=== PATIENT | female | born 1960 | race Caucasian/White ===

== ENCOUNTER 2017-12-28 10:53 | Inpatient (IN) | payer BC, SELFPAY ==
[2017-12-28] VITALS (19 sets, daily range): BP systolic 116–161; BP diastolic 68–96; PULSE 59–72; RESP 16–20; TEMP 36.5–37.3; O2SAT 97–100
--- NOTE | 2017-12-28 11:58 | DI.CT_ITS ---
SYMPTOMS/DIAGNOSIS: LT EYE SWELLING, PERIORBITAL EDEMA, PAIN ORBITAL CT: There is no evidence of fracture or bony destruction. There is minimal mucosal thickening of the anterior right maxillary sinus. There is otf bullosa of the right middle turbinate. The nasal cavity is clear. There is mild preseptal soft tissue swelling on the left. There is no discrete fluid collection or abscess. The extraocular muscles, globes and intraorbital fat appear intact. No abnormality is seen in the visualized portions of the brain. The mastoid air cells appear clear. The [place] vasculature appears grossly intact. IMPRESSION: Mild soft tissue swelling around the left orbit.
--- NOTE | 2017-12-28 12:01 | W.ED.GENAD ---
Discharge Plan Disposition Condition: Good Discharge Details Chief Complaint: Cellulitis Clinical Impression: Periorbital cellulitis of left eye Primary Care Provider: Keith Demarco ED Provider: Duarte Davies Home Meds and New Rx's Prescriptions: No Action multivitamin 1 EACH tablet 1 ea PO DAILY RF: 0 loratadine-pseudoephedrine [Claritin-D 12 Hour] 1 EACH tablet extended release 12 hr 1 tab-cap PO Q12H PRN RF: 0 ibuprofen 200 MG tablet 600 mg PO Q6H PRN RF: 0 Medical Decision Making Medical Records 57-year-old female referred from [facility] with day 2 of left eye injection and periorbital swelling, followed by pain with movement of the eye today. She was seen in the primary care physician's office yesterday and started on prednisolone drops and is worsened since that time. In the optometry office patient had normal visual acuity, normal Goldmann tonometry, and underwent dilated visual exam with unremarkable anterior chamber. There was note that there was no afferent pupillary defect present prior to dilation IV placed, labs of blood cultures obtained, patient given broad-spectrum antibiotics and referred for CT imaging of the head and face. Labs are reassuring. CT reveals soft tissue swelling around the left orbit but otherwise unremarkable. Given the patient's findings, I do feel she needs to be admitted for parenteral antibiotics. Case discussed with Dr Hope and patient to be admitted for parenteral abx and further management. Lab Data Lab results reviewed: Yes I reviewed the patient's lab results. HPI - General Adult General Date/Time Provider Initiated Documentation: 12/28/17 11:26. Limitations to Documentation: no limitations. Information obtained by: patient and family. History of Present Illness 57 year old F presents to the emergency department with the chief complaint of L eye pain, described as moderate, Quality is described as aching, and is localized to the eyes and left. Patient reports no radiation. Patient started experiencing this day(s) and it has been constant. No relieving factors improve symptom(s), Movement worsens symptoms . HPI Narrative: Left eye discomfort: 57-year-old female referred from local [employer]. The patient states she has day to the gradual onset of left eye pain and swelling. She also noticed left eye injection and pain with movement of the eyes both as light sensitivity. States that she had the initiation of erythema in her upper eyelid yesterday that progressed through the night. Somewhat improved with warm compresses and ibuprofen. Was seen at the PCP office yesterday afternoon and prescribed prednisolone. Worse today. Notes from [facility] note unaided visual acuities 20/30 bilaterally. There was diplopia present on leftward gaze and pain with eye movement. Anterior chamber free of cells or flare. Patient underwent dilated exam prior to transfer to the ED Related Data Home Medications Medication Instructions Recorded Confirmed ibuprofen 600 mg PO Q6H PRN tab-cap 08/10/14 09/25/14 loratadine-pseudoephedrine 1 tab-cap PO Q12H PRN tab-cap 08/10/14 09/25/14 [Claritin-D 12 Hour] multivitamin 1 ea PO DAILY 08/10/14 09/25/14 Allergies Allergy/AdvReac Type Severity Reaction Status Date / Time No Known Allergies Allergy Unverified 09/25/14 06:32 General Stated Complaint: Cellulitis CHRIS: 2 Review of Systems Review of Systems 6 systems reviewed and otherwise neg PFSH Social History Smoking/Tobacco Use Status: Never Exam Const General: cooperative and healthy appearing Orientation: alert Limitations: altered mental status [facility] Head: normocephalic and atraumatic Ears: external ears normal Face and sinus: other (Left periorbital erythema and swelling.) Eyes Other: Left pupil was dilated, status post noted previous exam. Left conjunctiva injected. Visual acuity as previous he documented at 20/30 bilaterally. Pupils are equal and reactive to light. There is diplopia on leftward gaze. Pain on eye movement present. Neck Neck: normal visual inspection, full ROM and no lymphadenopathy Chest Chest: normal inspection of the chest Resp Effort & Inspection: normal respiratory effort Auscultation: clear to auscultation bilaterally Cardio Rate: regular rate Rhythm: regular rhythm Neuro General: alert, awake and oriented x3 Cranial Nerves: other (Leftward gaze diplopia, pain with eye movement, clear nerves II through XII otherwise intact) Cognition: normal cognition Speech: speech normal Extrem General: normal to inspection, full ROM and normal capillary refill Psych Appearance: grossly normal and well kempt Mental Status: mental status grossly normal Speech and Movement: speech and movement normal Mood: congruent mood Affect: normal affect Course Vital Signs Temperature 36.7 C 12/28/17 11:50 Pulse 67 09/07/18 11:50 Respiratory Rate 16 12/28/17 11:50 Blood Pressure 143/84 H 12/28/17 11:50 Temperature 36.7 C 12/28/17 11:50 Pulse 67 12/28/17 11:50 Respiratory Rate 16 12/28/17 11:50 Blood Pressure 143/84 H 12/28/17 11:50
--- NOTE | 2017-12-28 12:10 | ED.GENADUL_ITS ---
Discharge Plan Disposition Condition: Good Discharge Details Chief Complaint: Cellulitis Clinical Impression: Periorbital cellulitis of left eye Primary Care Provider: Keith Demarco ED Provider: Duarte Davies Home Meds and New Rx's Prescriptions: No Action multivitamin 1 EACH tablet 1 ea PO DAILY RF: 0 loratadine-pseudoephedrine [Claritin-D 12 Hour] 1 EACH tablet extended release 12 hr 1 tab-cap PO Q12H PRN RF: 0 ibuprofen 200 MG tablet 600 mg PO Q6H PRN RF: 0 Medical Decision Making Medical Records 57-year-old female referred from [facility] with day 2 of left eye injection and periorbital swelling, followed by pain with movement of the eye today. She was seen in the primary care physician's office yesterday and started on prednisolone drops and is worsened since that time. In the optometry office patient had normal visual acuity, normal Goldmann tonometry, and underwent dilated visual exam with unremarkable anterior chamber. There was note that there was no afferent pupillary defect present prior to dilation IV placed, labs of blood cultures obtained, patient given broad-spectrum antibiotics and referred for CT imaging of the head and face. Labs are reassuring. CT reveals soft tissue swelling around the left orbit but otherwise unremarkable. Given the patient's findings, I do feel she needs to be admitted for parenteral antibiotics. Case discussed with Dr Hope and patient to be admitted for parenteral abx and further management. Lab Data Lab results reviewed: Yes I reviewed the patient's lab results. HPI - General Adult General Date/Time Provider Initiated Documentation: 12/28/17 11:26 . Limitations to Documentation: no limitations . Information obtained by: patient and family . History of Present Illness 57 year old F presents to the emergency department with the chief complaint of L eye pain, described as moderate, Quality is described as aching, and is localized to the eyes and left. Patient reports no radiation. Patient started experiencing this day(s) and it has been constant. No relieving factors improve symptom(s), Movement worsens symptoms . 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 The patient states she has day to the gradual onset of left eye pain and swelling. She also noticed left eye injection and pain with movement of the eyes both as light sensitivity. States that she had the initiation of erythema in her upper eyelid yesterday that progressed through the night. Somewhat improved with warm compresses and ibuprofen. Was seen at the PCP office yesterday afternoon and prescribed prednisolone. Worse today. Notes from [facility] note unaided visual acuities 20/30 bilaterally. There was diplopia present on leftward gaze and pain with eye movement. Anterior chamber free of cells or flare. Patient underwent dilated exam prior to transfer to the ED Related Data Home Medications Medication Instructions Recorded Confirmed ibuprofen 600 mg PO Q6H PRN tab-cap 08/10/14 09/25/14 loratadine-pseudoephedrine 1 tab-cap PO Q12H PRN tab-cap 08/10/14 09/25/14 [Claritin-D 12 Hour] multivitamin 1 ea PO DAILY 08/10/14 09/25/14 Allergies Allergy/AdvReac Type Severity Reaction Status Date / Time No Known Allergies Allergy Unverified 09/25/14 06:32 General Stated Complaint: Cellulitis CHRIS: 2 Review of Systems Review of Systems 6 systems reviewed and otherwise neg PFSH Social History Smoking/Tobacco Use Status: Never Exam Const General: cooperative and healthy appearing Orientation: alert Limitations: altered mental status [facility] Head: normocephalic and atraumatic Ears: external ears normal Face and sinus: other (Left periorbital erythema and swelling.) Eyes Other: Left pupil was dilated, status post noted previous exam. Left conjunctiva injected. Visual acuity as previous he documented at 20/30 bilaterally. Pupils are equal and reactive to light. There is diplopia on leftward gaze. Pain on eye movement present. Neck Neck: normal visual inspection, full ROM and no lymphadenopathy Chest Chest: normal inspection of the chest Resp Effort & Inspection: normal respiratory effort Auscultation: clear to auscultation bilaterally Cardio Rate: regular rate Rhythm: regular rhythm Neuro General: alert, awake and oriented x3 Cranial Nerves: other (Leftward gaze diplopia, pain with eye movement, clear nerves II through XII otherwise intact) Cognition: normal cognition Speech: speech normal Extrem General: normal to inspection, full ROM and normal capillary refill Psych Appearance: grossly normal and well kempt Mental Status: mental status grossly normal Speech and Movement: speech and movement normal Mood: congruent mood Affect: normal affect Course Vital Signs Temperature 36.7 C 12/28/17 11:50 Pulse 67 09/07/18 11:50 Respiratory Rate 16 12/28/17 11:50 Blood Pressure 143/84 H 12/28/17 11:50 Temperature 36.7 C 12/28/17 11:50 Pulse 67 12/28/17 11:50 Respiratory Rate 16 12/28/17 11:50 Blood Pressure 143/84 H 12/28/17 11:50
[2017-12-28] MEDS: Normal Saline 1,000 ML 200 ML IV (12:15)
[2017-12-28 12:39] LABS: Abs Immature Grans 0.02 k/cumm (0.0-0.09); Absolute Basophil Count 0.05 k/cumm (0.0-0.2); Absolute Eosinophil Count 0.61 k/cumm (0.0-0.7); Absolute Lymphocyte Count 2.84 k/cumm (1.2-3.4); Absolute Monocyte Count 0.56 k/cumm (0.11-0.7); Absolute Neutrophil Count 5.78 k/cumm (1.2-6.7); Basophils % 0.5; Eosinophils % 6.2; HCT 39.6 % (36.0-46.0); HGB 13.4 g/dL (12.0-15.5); Immature Grans % 0.2; Lymphocytes % 28.8; Mean Corp. HGB Concentration 33.8 g/dL (32.0-36.0); Mean Corpuscular Volume 82.7 fL (80-95); Mean Platelet Volume 8.9 fL (8.0-11.0); Monocytes % 5.7; Neutrophils % 58.6; Platelet Count 310 x1000/uL (130-400); RBC 4.79 m/cumm (4.00-5.20); RBC Distribution Width 13.7 % (11.7-14.6); White Blood Cell Count 9.86 k/cumm (4.4-10.8)
[2017-12-28 12:51] LABS: C-Reactive Protein 1.51 mg/dL (0.0-0.3)
[2017-12-28 12:57] LABS: ALT 24 U/L (12-78); AST 19 U/L (15-37); Alkaline Phosphatase 107 U/L (46-116); Anion Gap 5.9 mmol/L (3-11); BUN 15 mg/dL (7-18); Bilirubin, Total 0.8 mg/dL (0.2-1.0); CO2 30.1 mmol/L (21.0-32.0); CREATININE 0.72 mg/dL (0.55-1.02); Calcium 9.2 mg/dL (8.5-10.1); Chloride 101 mmol/L (98-107); Glucose 82 mg/dL (70-100); Magnesium 2.2 mg/dL (1.8-2.4); Potassium 3.6 mmol/L (3.5-5.1); Sodium 137 mmol/L (136-145); Total Protein 8.6 g/dL (6.4-8.2)
[2017-12-28] MEDS: Omnipaque 350 MG/ML 100 ML BTL IV (13:17)
[2017-12-28] MEDS: PIPERACILLIN/TAZO 3.375 GM in Normal Saline 50 ML IVPB (13:25)
[2017-12-28] MEDS: VANCOMYCIN 1,000 MG in Normal Saline 250 ML 166.6666 MG IVPB (14:05)
[2017-12-28] MEDS: Enoxaparin 40 MG/0.4 ML SYR SC (15:57)
[2017-12-28] MEDS: Normal Saline Flush 10 ML SYR IVP (15:58)
[2017-12-28] MEDS: Acetaminophen 325 MG TAB PO ×2 (15:59→21:46)
--- NOTE | 2017-12-28 16:18 | HPE_ITS ---
Date of service: 12/28/17 Time of Service: 16:16 Assessment and Plan (1) Periorbital cellulitis of left eye: Current visit: Yes Status: Acute Appears to be periorbital cellulitis with concern for progression to orbital cellulitis without aggressive treatment. She had an orbital CT which revealed mild soft tissue swelling around the left orbit. She has been evaluated by her perianesthesia manager. Her vision is intact. Plan to give IV vancomycin and Zosyn for now. Transition to PO Bactrim and Augmentin when she has significant improvement in her left periorbital cellulitis. (2) Seasonal allergies: Current visit: Yes Status: Acute Stable. Continue PRN Claritin. History of Present Illness Chief Complaint: Left eye pain and swelling Narrative: Cassi is a very pleasant 57 year old female with a history of seasonal allergies who presented to the ED today after seeing her perianesthesia manager with reports of left eye swelling, injection, photophobia and pain with lateral movement of the eye. Her vision remained intact. She reports waking up yesterday morning with a swollen left eye. She was in her normal state of health the night prior. She reports having a recent virus, where she was fatigued, however, she denies any recent rhinosinusitis, orbital trauma, ophthalmic surgery, or dental infections. She denies having fevers at home, she has been experiencing headaches and nausea, her appetite has been normal. Work up in the ED included labs, which were remarkable for an elevated CRP at 1.51, she had no leukocytosis. She had an Oribital CT which revealed mild soft tissue swelling around the left orbit. She was empirically started on Vancomycin and Zosyn in the ED, which will be continued. She is admitted to the Med/Surg floor for further observation and management. Review of Systems Constitutional Denies chills, Denies fever(s), Reports headache(s) and Denies poor appetite Eyes Patient Reports as per HPI, reports (clear drainage from left eye.), Denies loss of vision, Reports eye pain (especially with lateral eye movement.) and Reports photophobia ENT Denies dental pain, Reports headache(s), Denies nasal congestion, Denies nasal discharge, Denies sinus pain, Denies sinus pressure and Denies sore throat Cardiovascular Denies chest pain, Denies edema, Denies palpitations and Denies dyspnea Respiratory Denies chest congestion, Denies cough, Denies dyspnea and Denies wheezing Gastrointestinal Denies abdominal pain, Denies change in bowel habits and Reports nausea (when ambulating related eye discomfort and disequilibrium ) Musculoskeletal Comments: Left foot pain related to recent trauma to her left foot, improving. Integumentary/Breasts Comments: Cellulitis surrounding left eye, denies any other rash or lesion. Neurologic Reports headache(s) and Denies loss of vision Endocrine Denies palpitations Allergic/Immunologic Denies wheezing PFSH Social History Smoking/Tobacco Use Status: Never Meds Home Medications Medication Instructions Recorded Confirmed Type ibuprofen 600 mg PO Q6H PRN tab-cap 08/10/14 12/28/17 History loratadine-pseudoephedrine 1 tab-cap PO Q12H PRN tab-cap 08/10/14 12/28/17 History [Claritin-D 12 Hour] multivitamin 1 ea PO DAILY 08/10/14 12/28/17 History Allergies Allergy/AdvReac Type Severity Reaction Status Date / Time No Known Allergies Allergy Unverified 09/25/14 06:32 Exam Const General: cooperative, healthy appearing and no acute distress Orientation: alert and oriented x3 HENMT Mouth: moist mucous membranes Teeth and gingiva: dentition normal Eyes Periorbital: periorbital findings abnormal (Edema surrounding left eye, left eye lid closed due to swelling.) Conjunctivae: conjunctival abnormality (injected and inflammed.) Pupils: PERRL EOM: EOM intact bilaterally (EOM intact, however, she has significant pain on lateral movement of the left eye especially left gaze.) Direct ophthalmoscopy: photophobia Neck Neck: normal visual inspection, full ROM, no lymphadenopathy and supple Resp Effort & Inspection: normal respiratory effort (Respirations even and unlabored. ) and no cough Auscultation: no wheezes Cardio Rate: regular rate Heart Sounds: S1 normal, S2 normal and no murmurs GI Palpation: soft and nontender Auscultation: normal bowel sounds Extrem Right upper extremity: no edema (no edema to BLE's. Mild discomfort to left foot related to recent trauma, slight discoloration to dorsal aspect of left foot.) Results Labs : 12/28/17 12:20 12/28/17 12:20 Abnormal lab results 12/28/17 12/28/17 Range/Units 12:20 12:20 C-Reactive Protein 1.51 H (0.0-0.3) mg/dL Total Protein 8.6 H (6.4-8.2) g/dL Diabetes panel 12/28/17 Range/Units 12:20 Sodium 137 (136-145) mmol/L Potassium 3.6 (3.5-5.1) mmol/L Chloride 101 (98-107) mmol/L Carbon Dioxide 30.1 (21.0-32.0) mmol/L BUN 15 (7-18) mg/dL Creatinine 0.72 (0.55-1.02) mg/dL Glucose 82 (70-100) mg/dL Calcium 9.2 (8.5-10.1) mg/dL AST 19 (15-37) U/L ALT 24 (12-78) U/L Alkaline Phosphatase 107 (46-116) U/L Total Protein 8.6 H (6.4-8.2) g/dL Albumin 4.0 (3.4-5.0) g/dL Calcium panel 12/28/17 Range/Units 12:20 Calcium 9.2 (8.5-10.1) mg/dL Albumin 4.0 (3.4-5.0) g/dL Pituitary panel 12/28/17 Range/Units 12:20 Sodium 137 (136-145) mmol/L Potassium 3.6 (3.5-5.1) mmol/L Chloride 101 (98-107) mmol/L Carbon Dioxide 30.1 (21.0-32.0) mmol/L BUN 15 (7-18) mg/dL Creatinine 0.72 (0.55-1.02) mg/dL Glucose 82 (70-100) mg/dL Calcium 9.2 (8.5-10.1) mg/dL Adrenal panel 12/28/17 Range/Units 12:20 Sodium 137 (136-145) mmol/L Potassium 3.6 (3.5-5.1) mmol/L Chloride 101 (98-107) mmol/L Carbon Dioxide 30.1 (21.0-32.0) mmol/L BUN 15 (7-18) mg/dL Creatinine 0.72 (0.55-1.02) mg/dL Glucose 82 (70-100) mg/dL Calcium 9.2 (8.5-10.1) mg/dL Total Bilirubin 0.8 (0.2-1.0) mg/dL AST 19 (15-37) U/L ALT 24 (12-78) U/L Alkaline Phosphatase 107 (46-116) U/L Total Protein 8.6 H (6.4-8.2) g/dL Albumin 4.0 (3.4-5.0) g/dL Laboratory Tests 12/28/17 12/28/17 12/28/17 12:20 12:20 12:20 WBC 9.86 RBC 4.79 Hgb 13.4 Hct 39.6 MCV 82.7 MCH 28.0 MCHC 33.8 RDW 13.7 Plt Count 310 MPV 8.9 Immature Gran % 0.2 Neutrophils % 58.6 Lymphocytes % 28.8 Monocytes % 5.7 Eosinophils % 6.2 Basophils % 0.5 Absolute Neutrophils 5.78 Absolute Lymphocytes 2.84 Absolute Monocytes 0.56 Absolute Eosinophils 0.61 Absolute Basophils 0.05 Sodium 137 Potassium 3.6 Chloride 101 Carbon Dioxide 30.1 Anion Gap 5.9 BUN 15 Creatinine 0.72 Estimated GFR/1.73 m2 >= 60.00 Glucose 82 Calcium 9.2 Magnesium 2.2 Total Bilirubin 0.8 AST 19 ALT 24 Alkaline Phosphatase 107 C-Reactive Protein 1.51 H Total Protein 8.6 H Albumin 4.0
[2017-12-28] MEDS: VANCOMYCIN 1,000 MG in Normal Saline 250 ML 166.667 MG IVPB (23:52)
[2017-12-29 04:03] VITALS: BP 116/68; PULSE 63; RESP 15; TEMP 37.1; O2SAT 96
[2017-12-29 07:14] LABS: HCT 40.9 % (36.0-46.0); HGB 13.7 g/dL (12.0-15.5); Mean Corp. HGB Concentration 33.5 g/dL (32.0-36.0); Mean Corpuscular Hemoglobin 27.4 pg (27.0-33.0); Mean Corpuscular Volume 81.8 fL (80-95); Mean Platelet Volume 8.7 fL (8.0-11.0); Platelet Count 277 x1000/uL (130-400); RBC Distribution Width 13.9 % (11.7-14.6); White Blood Cell Count 7.89 k/cumm (4.4-10.8)
[2017-12-29 07:20] LABS: Anion Gap 9.5 mmol/L (3-11); BUN 12 mg/dL (7-18); CO2 27.5 mmol/L (21.0-32.0); CREATININE 0.85 mg/dL (0.55-1.02); Calcium 8.7 mg/dL (8.5-10.1); Chloride 102 mmol/L (98-107); Glucose 100 mg/dL (70-100); Potassium 3.7 mmol/L (3.5-5.1); Sodium 139 mmol/L (136-145)
[2017-12-29] MEDS: Acetaminophen 325 MG TAB PO ×2 (07:25→15:02)
--- NOTE | 2017-12-29 07:41 | PDOC.CMIN ---
- If Service Date Differs Date of service: 12/29/17 Time of Service: 07:41 Care Management Initial Assess REASON FOR HOSPITALIZATION:: Left Periorbital Cellulitis PAST MEDICAL HISTORY/PAST SURGICAL HISTORY:: Seasonal allergies PREVIOUS FUNCTIONAL STATUS/SOCIAL/FAMILY SUPPORTS:: Cassi lives in her own home in [place], [place] her spouse is Peter she has four children that live at home. Children's ages range from 10 thru 16. 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 She is independent with ADL's and transporation, and has no equipment need at home. CURRENT FUNCTIONAL STATUS:: Cassi is alert and engaged during CM assessment. CM reviewed the plan for IV antibiotics with patient and expecations while inpatient. Cassi is hopeful she could be home before Sunday however understands that importance of treating the cellulitis. She states she has a supportive family. ADVANCE DIRECTIVES:: None on file at [facility]. Unable to complete today Has patient been provided with information about the portal?: Yes Did the patient sign up for the portal?: No CODE STATUS:: Full Code INSURANCE COVERAGE / FINANCIAL ISSUES:: BCBS CURRENT HOME/COMMUNITY SERVICES/EQUIPMENT:: None at this time. PRIMARY CARE PHYSICIAN:: POTENTIAL DISCHARGE NEEDS:: Follow up appointment with opthamology and primary care provider. PATIENT/FAMILY EDUCATION NEEDS:: Discharge education, medicaiton, limitations and follow up plan of care including ask me three education and self management discussion. ANTICIPATED BARRIERS TO DISCHARGE:: None identified TRANSPORTATION:: Via private car with spouse PLAN:: Cassi is currently receiving IV antibiotics and anticipate no change in status today. Cassi will be discharged to home when medically ready per provider. Anticipate no addtional services upon discharge. CM to continue to provide support to Pt, family and care team ongoing discharge planning.
[2017-12-29 07:45] VITALS: BP 129/86; PULSE 72; RESP 18; TEMP 36.7; O2SAT 97
--- NOTE | 2017-12-29 07:52 | INITIAL_ITS ---
- If Service Date Differs Date of service: 12/29/17 Time of Service: 07:41 Care Management Initial Assess REASON FOR HOSPITALIZATION:: Left Periorbital Cellulitis PAST MEDICAL HISTORY/PAST SURGICAL HISTORY:: Seasonal allergies PREVIOUS FUNCTIONAL STATUS/SOCIAL/FAMILY SUPPORTS:: Cassi lives in her own home in [place], [place] her spouse is Peter she has four children that live at home. Children's ages range from 10 thru 16. 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 She is independent with ADL's and transporation, and has no equipment need at home. CURRENT FUNCTIONAL STATUS:: Cassi is alert and engaged during CM assessment. CM reviewed the plan for IV antibiotics with patient and expecations while inpatient. Cassi is hopeful she could be home before Sunday however understands that importance of treating the cellulitis. She states she has a supportive family. ADVANCE DIRECTIVES:: None on file at [facility]. Unable to complete today Has patient been provided with information about the portal?: Yes Did the patient sign up for the portal?: No CODE STATUS:: Full Code INSURANCE COVERAGE / FINANCIAL ISSUES:: BCBS CURRENT HOME/COMMUNITY SERVICES/EQUIPMENT:: None at this time. PRIMARY CARE PHYSICIAN:: POTENTIAL DISCHARGE NEEDS:: Follow up appointment with opthamology and primary care provider. PATIENT/FAMILY EDUCATION NEEDS:: Discharge education, medicaiton, limitations and follow up plan of care including ask me three education and self management discussion. ANTICIPATED BARRIERS TO DISCHARGE:: None identified TRANSPORTATION:: Via private car with spouse PLAN:: Cassi is currently receiving IV antibiotics and anticipate no change in status today. Cassi will be discharged to home when medically ready per provider. Anticipate no addtional services upon discharge. CM to continue to provide support to Pt, family and care team ongoing discharge planning.
[2017-12-29] MEDS: traMADol 50 MG TAB PO (09:41)
[2017-12-29] MEDS: VANCOMYCIN 1,000 MG in Normal Saline 250 ML 166.67 MG IVPB ×2 (09:43→20:54)
[2017-12-29] MEDS: Normal Saline Flush 10 ML SYR IVP ×2 (09:45→15:03)
--- NOTE | 2017-12-29 11:08 | PHARADMIT ---
Addendum entered by Penny Zimmer 12/31/17 11:38: Pharmacy Note Subjective swelling has decreased and pt. can now open eye per morning report Objective VS-okay Assessment blood cultures-no growth at 48 hours vanco and zosyn changed to bactrim DS and augmentin Plan possible discharge tomorrow if continues to improve Original Note: Admission Pharmacy Clinical Review [id number] Cellulitis Code Status Full Code Current Weight Wgt- 77.1 kg Renally Cleared and Narrow Therapeutic Index Meds CrCl~58.4 mL/min Meds-OK QTc Value / Action Taken Program na BP Control, Fever BP- 129/86 Tmax- 37.3C Electrolytes reviewed Na- 139 K+3.7 Mag-2.2 DVT Prophylaxis Lovenox 40mg Opiate Usage / Scheduled Bowel Regimen Ordered Yes Yes Plt/SCr for Heparin / Enoxaparin Plts-277 SCr- 0.85 INR for Warfarin na H/H stable, WBC/Bands H&H- 13.7/40.9 WBC- 7.89 Antibiotic appropriateness Zosyn, Vancomycin Cultures and Sensitivities Blood-Pending Surgical ABX d/c within 24 hr na DM control / Insulin Dosing BG- 100 Heart Failure (Check EF%) (NAKIA's, B-Block, Diuretics) none IV to PO Switch No Home Meds Reviewed Yes Home Meds Not Ordered Ibuprofen, Claritin-D, M-Vites Comments
[2017-12-29 12:13] VITALS: BP 128/84; PULSE 76; RESP 16; TEMP 36.7; O2SAT 97
--- NOTE | 2017-12-29 13:12 | PGE_ITS ---
Date of service: 12/29/17 Time of Service: 13:02 Assessment and Plan (1) Periorbital cellulitis of left eye: Current visit: Yes Status: Acute Left sided Preseptal Cellulitis. CT with mild preseptal soft tissue swelling on the left without discrete fluid collection or abscess. The extraocular muscles, globes and intraorbital fat also appeared intact. There was no abnormality seen in the visualized portions of the brain. Patient with what appears to be a arnaldo-orbital process, but with symptoms that are concerning for progression to orbital cellulitis. Continue IV vancomycin and Zosyn Day #2 for now. Plan on transition to PO Bactrim and Augmentin when she has significant improvement in her symptoms. (2) Seasonal allergies: Current visit: Yes Status: Acute Stable. Continue PRN Claritin. Subjective Interval history since last seen: Very pleasant 57 year old female without a significant medical history, admitted from [facility] emergency department on 2017 with a diagnosis of left sided arnaldo-orbital cellulitis. Mrs. Lomax presented to the ED after seeing her manager medical affairs with reports of left eye swelling, injection, photophobia and pain with lateral movement of the eye. Her vision remained intact. She reported waking up in the morning prior to her admission with a swollen left eye. She was in her normal state of health the night prior. She reports having a recent illness with symptoms of fatigued, however, she denies any recent rhinosinusitis, orbital trauma, ophthalmic surgery, or dental infections. She denied any fevers at home. Work up in the ED included labs, which were remarkable for an elevated CRP at 1.51, but without leukocytosis. She had an Oribital CT which revealed mild soft tissue swelling around the left orbit, but no signs of orbital cellulitis. She was empirically started on Vancomycin and Zosyn in the ED, and referred for admission. This morning the patient reports no specific improvement in her symptoms, and the swelling remains unchanged. However, there has been no progression in symptoms either. No overnight events reported. She remains afebrile. Exam Const General: cooperative and no acute distress Orientation: alert and oriented x3 Limitations: altered mental status HENMT Head: normocephalic and atraumatic Eyes Periorbital: periorbital findings abnormal (Edema surrounding left eye, left eye lid closed due to swelling.) Conjunctivae: conjunctival abnormality (injected and inflammed.) EOM: EOM intact bilaterally (EOM intact, however, she has significant pain on lateral movement of the left eye especially left gaze.) Direct ophthalmoscopy: photophobia Neck Neck: normal visual inspection and supple Resp Effort & Inspection: normal respiratory effort (Respirations even and unlabored. ) and no cough Auscultation: clear to auscultation bilaterally Cardio Rate: regular rate Heart Sounds: S1 normal, S2 normal and no murmurs GI Palpation: soft and nontender Auscultation: normal bowel sounds Neuro General: alert, awake and oriented x3 Objective Objective Clinical Data: Vital Signs Temp 36.7 C 12/29/17 12:13 Pulse 76 12/29/17 12:13 Resp 16 12/29/17 12:13 BP 128/84 12/29/17 12:13 Pulse Ox 97 12/29/17 12:13 Intake & Output 12/28/17 12/29/17 12/29/17 23:59 11:59 23:59 Intake Total 1540 / 1540 610 / 610 250 / 250 Output Total 400 / 400 Balance 1140 / 1140 610 / 610 250 / 250 Weight 77.111 kg Intake: IV 1300 / 1300 370 / 370 250 / 250 Oral 240 / 240 240 / 240 Output: Urine 400 / 400 Other: Urine Color Yellow Urine Appearance Clear Urine Odor Normal Voiding Methods Toilet Laboratory Results WBC 7.89 k/cumm (4.4-10.8) 12/29/17 06:55 RBC 5.00 m/cumm (4.00-5.20) 12/29/17 06:55 Hgb 13.7 g/dL (12.0-15.5) 12/29/17 06:55 Hct 40.9 % (36.0-46.0) 12/29/17 06:55 MCV 81.8 fL (80-95) 12/29/17 06:55 MCH 27.4 pg (27.0-33.0) 12/29/17 06:55 MCHC 33.5 g/dL (32.0-36.0) 12/29/17 06:55 RDW 13.9 % (11.7-14.6) 12/29/17 06:55 Plt Count 277 x1000/uL (130-400) 12/29/17 06:55 MPV 8.7 fL (8.0-11.0) 12/29/17 06:55 Immature Gran % 0.2 12/28/17 12:20 Neutrophils % 58.6 12/28/17 12:20 Lymphocytes % 28.8 12/28/17 12:20 Monocytes % 5.7 12/28/17 12:20 Eosinophils % 6.2 12/28/17 12:20 Basophils % 0.5 12/28/17 12:20 Absolute Neutrophils 5.78 k/cumm (1.2-6.7) 12/28/17 12:20 Absolute Lymphocytes 2.84 k/cumm (1.2-3.4) 12/28/17 12:20 Absolute Monocytes 0.56 k/cumm (0.11-0.7) 12/28/17 12:20 Absolute Eosinophils 0.61 k/cumm (0.0-0.7) 12/28/17 12:20 Absolute Basophils 0.05 k/cumm (0.0-0.2) 12/28/17 12:20 Sodium 139 mmol/L (136-145) 12/29/17 06:55 Potassium 3.7 mmol/L (3.5-5.1) 12/29/17 06:55 Chloride 102 mmol/L (98-107) 12/29/17 06:55 Carbon Dioxide 27.5 mmol/L (21.0-32.0) 12/29/17 06:55 Anion Gap 9.5 mmol/L (3-11) 12/29/17 06:55 BUN 12 mg/dL (7-18) 12/29/17 06:55 Creatinine 0.85 mg/dL (0.55-1.02) 12/29/17 06:55 Estimated GFR/1.73 m2 >= 60.00 (mL/min/1.73m2) 12/29/17 06:55 Glucose 100 mg/dL (70-100) 12/29/17 06:55 Calcium 8.7 mg/dL (8.5-10.1) 12/29/17 06:55 Magnesium 2.2 mg/dL (1.8-2.4) 12/28/17 12:20 Total Bilirubin 0.8 mg/dL (0.2-1.0) 09/07/18 12:20 AST 19 U/L (15-37) 12/28/17 12:20 ALT 24 U/L (12-78) 12/28/17 12:20 Alkaline Phosphatase 107 U/L (46-116) 12/28/17 12:20 C-Reactive Protein 1.51 mg/dL (0.0-0.3) H 12/28/17 12:20 Total Protein 8.6 g/dL (6.4-8.2) H 12/28/17 12:20 Albumin 4.0 g/dL (3.4-5.0) 12/28/17 12:20
[2017-12-29] MEDS: Ketorolac 30 MG/ML VIAL IVP (15:03)
[2017-12-29 15:57] VITALS: BP 125/82; PULSE 85; RESP 17; TEMP 36.7; O2SAT 100
[2017-12-29] MEDS: Enoxaparin 40 MG/0.4 ML SYR SC (16:58)
[2017-12-29 18:53] LABS: Vancomycin, Trough 14.3 ug/mL (10.0-20.0)
[2017-12-29 20:19] VITALS: BP 112/71; PULSE 63; RESP 16; TEMP 37.2
[2017-12-29 23:54] VITALS: BP 131/79; PULSE 60; RESP 18; TEMP 36.6; O2SAT 97
[2017-12-30 03:45] VITALS: BP 158/89; PULSE 72; RESP 16; TEMP 36.5; O2SAT 99
[2017-12-30] MEDS: Acetaminophen 325 MG TAB PO ×2 (03:54→10:38)
[2017-12-30] MEDS: VANCOMYCIN 1,000 MG in Normal Saline 250 ML 166.67 MG IVPB ×2 (06:26→15:23)
[2017-12-30 07:06] LABS: HCT 38.4 % (36.0-46.0); HGB 12.9 g/dL (12.0-15.5); Mean Corp. HGB Concentration 33.6 g/dL (32.0-36.0); Mean Corpuscular Hemoglobin 27.8 pg (27.0-33.0); Mean Corpuscular Volume 82.8 fL (80-95); Mean Platelet Volume 8.7 fL (8.0-11.0); Platelet Count 272 x1000/uL (130-400); RBC 4.64 m/cumm (4.00-5.20); RBC Distribution Width 14.1 % (11.7-14.6)
[2017-12-30 07:22] LABS: Anion Gap 8.8 mmol/L (3-11); BUN 10 mg/dL (7-18); CO2 28.2 mmol/L (21.0-32.0); CREATININE 0.88 mg/dL (0.55-1.02); Calcium 8.5 mg/dL (8.5-10.1); Chloride 103 mmol/L (98-107); Glucose 89 mg/dL (70-100); Potassium 3.7 mmol/L (3.5-5.1); Sodium 140 mmol/L (136-145)
[2017-12-30 07:35] VITALS: BP 135/87; PULSE 67; RESP 18; TEMP 36.2; O2SAT 96
[2017-12-30] MEDS: Docusate Sodium 100 MG CAP PO (08:04)
[2017-12-30 11:35] VITALS: BP 137/84; PULSE 64; RESP 18; TEMP 36.4; O2SAT 98
[2017-12-30] MEDS: Normal Saline Flush 10 ML SYR IVP ×3 (12:08→20:44)
[2017-12-30 13:40] VITALS: BP 130/78; PULSE 70; RESP 18
[2017-12-30] MEDS: traMADol 50 MG TAB PO (13:53)
--- NOTE | 2017-12-30 14:30 | W.PM.PROGNOT ---
Assessment and Plan (1) Periorbital cellulitis of left eye: Current visit: Yes Status: Acute Left sided Preseptal Cellulitis. CT with mild preseptal soft tissue swelling on the left without discrete fluid collection or abscess. The extraocular muscles, globes and intraorbital fat also appeared intact. There was no abnormality seen in the visualized portions of the brain. Patient with what appears to be a arnaldo-orbital process, but with symptoms that are concerning for progression to orbital cellulitis. Continue IV vancomycin and Zosyn Day #3 , and if vastly improved consider transition to PO Bactrim and Augmentin tomorrow. As per discussion with Dr. Sabrina Cuellar, there is potential for inflammatory etiology for patient's symptoms as well - will start oral steroids, and topical Antibiotic/steroid mixture. (2) Seasonal allergies: Current visit: Yes Status: Acute Stable. Continue PRN Claritin. Subjective Interval history since last seen: Very pleasant 57 year old female without a significant medical history, admitted from [facility] emergency department on 12/28/2017 with a diagnosis of left sided arnaldo-orbital cellulitis. Mrs. 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 Her vision remained intact. She reported waking up in the morning prior to her admission with a swollen left eye. She was in her normal state of health the night prior. She reports having a recent illness with symptoms of fatigued, however, she denies any recent rhinosinusitis, orbital trauma, ophthalmic surgery, or dental infections. She denied any fevers at home. Work up in the ED included labs, which were remarkable for an elevated CRP at 1.51, but without leukocytosis. She had an Oribital CT which revealed mild soft tissue swelling around the left orbit, but no signs of orbital cellulitis. She was empirically started on Vancomycin and Zosyn in the ED, and referred for admission. This morning the patient reports some improvement in her symptoms, including decreased swelling, ability to open her left eye, and vastly improved to resolved pain. However, her diplopia remains. No overnight events reported. She remains afebrile. Exam Const General: cooperative and no acute distress Orientation: alert and oriented x3 Limitations: altered mental status HENMT Head: normocephalic and atraumatic Eyes Periorbital: periorbital findings abnormal (Edema surrounding left eye, left eye lid closed due to swelling.) Conjunctivae: conjunctival abnormality (injected and inflammed.) EOM: EOM intact bilaterally (EOM intact, however, she has significant pain on lateral movement of the left eye especially left gaze.) Direct ophthalmoscopy: photophobia Neck Neck: normal visual inspection and supple Resp Effort & Inspection: normal respiratory effort (Respirations even and unlabored.) and no cough Auscultation: clear to auscultation bilaterally Cardio Rate: regular rate Heart Sounds: S1 normal, S2 normal and no murmurs GI Palpation: soft and nontender Auscultation: normal bowel sounds Neuro General: alert, awake and oriented x3 Objective Objective Clinical Data: Vital Signs Temp 36.4 C L 12/30/17 11:35 Pulse 70 12/30/17 13:40 Resp 18 12/30/17 13:40 BP 130/78 12/30/17 13:40 Pulse Ox 98 12/30/17 11:35 Intake & Output 12/29/17 12/30/17 12/30/17 23:59 11:59 23:59 Intake Total 1290 / 1290 990 / 990 300 / 300 Output Total 820 / 820 Balance 1290 / 1290 170 / 170 300 / 300 Intake: IV 630 / 630 300 / 300 50 / 50 Oral 660 / 660 690 / 690 250 / 250 Output: Urine 820 / 820 Other: Urine Color Yellow Straw Urine Appearance Clear Urine Odor None Comment Patient states she is voiding independently in toilet with no issues independant Voiding Methods Toilet Laboratory Results WBC 7.30 k/cumm (4.4-10.8) 12/30/17 06:50 RBC 4.64 m/cumm (4.00-5.20) 12/30/17 06:50 Hgb 12.9 g/dL (12.0-15.5) 12/30/17 06:50 Hct 38.4 % (36.0-46.0) 12/30/17 06:50 MCV 82.8 fL (80-95) 12/30/17 06:50 MCH 27.8 pg (27.0-33.0) 12/30/17 06:50 MCHC 33.6 g/dL (32.0-36.0) 12/30/17 06:50 RDW 14.1 % (11.7-14.6) 12/30/17 06:50 Plt Count 272 x1000/uL (130-400) 12/30/17 06:50 MPV 8.7 fL (8.0-11.0) 12/30/17 06:50 Immature Gran % 0.2 12/28/17 12:20 Neutrophils % 58.6 12/28/17 12:20 Lymphocytes % 28.8 12/28/17 12:20 Monocytes % 5.7 12/28/17 12:20 Eosinophils % 6.2 12/28/17 12:20 Basophils % 0.5 12/28/17 12:20 Absolute Neutrophils 5.78 k/cumm (1.2-6.7) 12/28/17 12:20 Absolute Lymphocytes 2.84 k/cumm (1.2-3.4) 12/28/17 12:20 Absolute Monocytes 0.56 k/cumm (0.11-0.7) 12/28/17 12:20 Absolute Eosinophils 0.61 k/cumm (0.0-0.7) 12/28/17 12:20 Absolute Basophils 0.05 k/cumm (0.0-0.2) 12/28/17 12:20 Sodium 140 mmol/L (136-145) 12/30/17 06:50 Potassium 3.7 mmol/L (3.5-5.1) 12/30/17 06:50 Chloride 103 mmol/L (98-107) 12/30/17 06:50 Carbon Dioxide 28.2 mmol/L (21.0-32.0) 12/30/17 06:50 Anion Gap 8.8 mmol/L (3-11) 12/30/17 06:50 BUN 10 mg/dL (7-18) 12/30/17 06:50 Creatinine 0.88 mg/dL (0.55-1.02) 12/30/17 06:50 Estimated GFR/1.73 m2 >= 60.00 (mL/min/1.73m2) 12/30/17 06:50 Glucose 89 mg/dL (70-100) 12/30/17 06:50 Calcium 8.5 mg/dL (8.5-10.1) 09/09/18 06:50 Magnesium 2.2 mg/dL (1.8-2.4) 12/28/17 12:20 Total Bilirubin 0.8 mg/dL (0.2-1.0) 12/28/17 12:20 AST 19 U/L (15-37) 12/28/17 12:20 ALT 24 U/L (12-78) 12/28/17 12:20 Alkaline Phosphatase 107 U/L (46-116) 12/28/17 12:20 C-Reactive Protein 1.51 mg/dL (0.0-0.3) H 12/28/17 12:20 Total Protein 8.6 g/dL (6.4-8.2) H 12/28/17 12:20 Albumin 4.0 g/dL (3.4-5.0) 12/28/17 12:20 Vancomycin Trough 14.3 ug/mL (10.0-20.0) 12/29/17 18:35
--- NOTE | 2017-12-30 14:33 | PGE_ITS ---
Assessment and Plan (1) Periorbital cellulitis of left eye: Current visit: Yes Status: Acute Left sided Preseptal Cellulitis. CT with mild preseptal soft tissue swelling on the left without discrete fluid collection or abscess. The extraocular muscles, globes and intraorbital fat also appeared intact. There was no abnormality seen in the visualized portions of the brain. Patient with what appears to be a arnaldo-orbital process, but with symptoms that are concerning for progression to orbital cellulitis. Continue IV vancomycin and Zosyn Day #3 , and if vastly improved consider transition to PO Bactrim and Augmentin tomorrow. As per discussion with Dr. Sabrina Cuellar, there is potential for inflammatory etiology for patient's symptoms as well - will start oral steroids, and topical Antibiotic/steroid mixture. (2) Seasonal allergies: Current visit: Yes Status: Acute Stable. Continue PRN Claritin. Subjective Interval history since last seen: Very pleasant 57 year old female without a significant medical history, admitted from [facility] emergency department on 2017 with a diagnosis of left sided arnaldo-orbital cellulitis. Mrs. 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 Her vision remained intact. She reported waking up in the morning prior to her admission with a swollen left eye. She was in her normal state of health the night prior. She reports having a recent illness with symptoms of fatigued, however, she denies any recent rhinosinusitis, orbital trauma, ophthalmic surgery, or dental infections. She denied any fevers at home. Work up in the ED included labs, which were remarkable for an elevated CRP at 1.51, but without leukocytosis. She had an Oribital CT which revealed mild soft tissue swelling around the left orbit, but no signs of orbital cellulitis. She was empirically started on Vancomycin and Zosyn in the ED, and referred for admission. This morning the patient reports some improvement in her symptoms, including decreased swelling, ability to open her left eye, and vastly improved to resolved pain. However, her diplopia remains. No overnight events reported. She remains afebrile. Exam Const General: cooperative and no acute distress Orientation: alert and oriented x3 Limitations: altered mental status HENMT Head: normocephalic and atraumatic Eyes Periorbital: periorbital findings abnormal (Edema surrounding left eye, left eye lid closed due to swelling.) Conjunctivae: conjunctival abnormality (injected and inflammed.) EOM: EOM intact bilaterally (EOM intact, however, she has significant pain on lateral movement of the left eye especially left gaze.) Direct ophthalmoscopy: photophobia Neck Neck: normal visual inspection and supple Resp Effort & Inspection: normal respiratory effort (Respirations even and unlabored. ) and no cough Auscultation: clear to auscultation bilaterally Cardio Rate: regular rate Heart Sounds: S1 normal, S2 normal and no murmurs GI Palpation: soft and nontender Auscultation: normal bowel sounds Neuro General: alert, awake and oriented x3 Objective Objective Clinical Data: Vital Signs Temp 36.4 C L 12/30/17 11:35 Pulse 70 12/30/17 13:40 Resp 18 12/30/17 13:40 BP 130/78 12/30/17 13:40 Pulse Ox 98 12/30/17 11:35 Intake & Output 12/29/17 12/30/17 12/30/17 23:59 11:59 23:59 Intake Total 1290 / 1290 990 / 990 300 / 300 Output Total 820 / 820 Balance 1290 / 1290 170 / 170 300 / 300 Intake: IV 630 / 630 300 / 300 50 / 50 Oral 660 / 660 690 / 690 250 / 250 Output: Urine 820 / 820 Other: Urine Color Yellow Straw Urine Appearance Clear Urine Odor None Comment Patient states she is voiding independently in toilet with no issues independant Voiding Methods Toilet Laboratory Results WBC 7.30 k/cumm (4.4-10.8) 12/30/17 06:50 RBC 4.64 m/cumm (4.00-5.20) 12/30/17 06:50 Hgb 12.9 g/dL (12.0-15.5) 12/30/17 06:50 Hct 38.4 % (36.0-46.0) 12/30/17 06:50 MCV 82.8 fL (80-95) 12/30/17 06:50 MCH 27.8 pg (27.0-33.0) 12/30/17 06:50 MCHC 33.6 g/dL (32.0-36.0) 12/30/17 06:50 RDW 14.1 % (11.7-14.6) 12/30/17 06:50 Plt Count 272 x1000/uL (130-400) 12/30/17 06:50 MPV 8.7 fL (8.0-11.0) 12/30/17 06:50 Immature Gran % 0.2 12/28/17 12:20 Neutrophils % 58.6 12/28/17 12:20 Lymphocytes % 28.8 12/28/17 12:20 Monocytes % 5.7 12/28/17 12:20 Eosinophils % 6.2 12/28/17 12:20 Basophils % 0.5 12/28/17 12:20 Absolute Neutrophils 5.78 k/cumm (1.2-6.7) 12/28/17 12:20 Absolute Lymphocytes 2.84 k/cumm (1.2-3.4) 12/28/17 12:20 Absolute Monocytes 0.56 k/cumm (0.11-0.7) 12/28/17 12:20 Absolute Eosinophils 0.61 k/cumm (0.0-0.7) 12/28/17 12:20 Absolute Basophils 0.05 k/cumm (0.0-0.2) 12/28/17 12:20 Sodium 140 mmol/L (136-145) 12/30/17 06:50 Potassium 3.7 mmol/L (3.5-5.1) 12/30/17 06:50 Chloride 103 mmol/L (98-107) 12/30/17 06:50 Carbon Dioxide 28.2 mmol/L (21.0-32.0) 12/30/17 06:50 Anion Gap 8.8 mmol/L (3-11) 12/30/17 06:50 BUN 10 mg/dL (7-18) 12/30/17 06:50 Creatinine 0.88 mg/dL (0.55-1.02) 12/30/17 06:50 Estimated GFR/1.73 m2 >= 60.00 (mL/min/1.73m2) 12/30/17 06:50 Glucose 89 mg/dL (70-100) 12/30/17 06:50 Calcium 8.5 mg/dL (8.5-10.1) 09/09/18 06:50 Magnesium 2.2 mg/dL (1.8-2.4) 12/28/17 12:20 Total Bilirubin 0.8 mg/dL (0.2-1.0) 12/28/17 12:20 AST 19 U/L (15-37) 12/28/17 12:20 ALT 24 U/L (12-78) 12/28/17 12:20 Alkaline Phosphatase 107 U/L (46-116) 12/28/17 12:20 C-Reactive Protein 1.51 mg/dL (0.0-0.3) H 12/28/17 12:20 Total Protein 8.6 g/dL (6.4-8.2) H 12/28/17 12:20 Albumin 4.0 g/dL (3.4-5.0) 12/28/17 12:20 Vancomycin Trough 14.3 ug/mL (10.0-20.0) 12/29/17 18:35
[2017-12-30] MEDS: Polyethylene Glycol 3350 17 GM PACKET PO (15:24)
[2017-12-30] MEDS: Enoxaparin 40 MG/0.4 ML SYR SC (15:24)
--- NOTE | 2017-12-30 15:24 | PDOC.CMPRO ---
- If Service Date Differs Date of service: 12/30/17 Time of Service: 15:25 Care Management Progress Note S/O: Cassi is ambulating in the halls she states she is board She is now able to open her left eye. The eye continues to be swollen and she is receiving ongoing IV antibiotics. Cassi may have to see outpatient Ophthalmology then return to [facility] for continued IV antibiotics. She is having some double vision per her report. She is being started on oral steroids and eye drops for continued treatment of periorbital cellulites. A:Cassi is a 57 year old female admitted with Periorbital cellulites of left eye P:Cassi is currently receiving IV antibiotics and anticipate no change in status today. Cassi will be discharged to home when medically ready per provider. Anticipate no additional services upon discharge. CM to continue to provide support to Pt, family and care team ongoing discharge planning.
--- NOTE | 2017-12-30 15:30 | CMPROGNOTE_ITS ---
- If Service Date Differs Date of service: 12/30/17 Time of Service: 15:25 Care Management Progress Note S/O: Cassi is ambulating in the halls she states she is board She is now able to open her left eye. The eye continues to be swollen and she is receiving ongoing IV antibiotics. Cassi may have to see outpatient Ophthalmology then return to [facility] for continued IV antibiotics. She is having some double vision per her report. She is being started on oral steroids and eye drops for continued treatment of periorbital cellulites. A:Cassi is a 57 year old female admitted with Periorbital cellulites of left eye P:Cassi is currently receiving IV antibiotics and anticipate no change in status today. Cassi will be discharged to home when medically ready per provider. Anticipate no additional services upon discharge. CM to continue to provide support to Pt, family and care team ongoing discharge planning.
[2017-12-30 15:52] VITALS: BP 146/80; PULSE 60; RESP 18; TEMP 36.7; O2SAT 98
[2017-12-30 20:00] VITALS: BP 129/83; PULSE 73; RESP 17; TEMP 36.9; O2SAT 96
[2017-12-30] MEDS: predniSONE 20 MG TAB 40 MG PO (20:44)
[2017-12-31 01:14] VITALS: BP 127/82; PULSE 77; RESP 17; TEMP 36.7; O2SAT 96
[2017-12-31] MEDS: VANCOMYCIN 1,000 MG in Normal Saline 250 ML 166.67 MG IVPB (02:01)
[2017-12-31] MEDS: Normal Saline Flush 10 ML SYR IVP (02:02)
[2017-12-31 04:00] VITALS: BP 128/73; PULSE 71; RESP 16; TEMP 36.8; O2SAT 96
[2017-12-31 07:15] VITALS: BP 124/78; PULSE 86; RESP 20; TEMP 36.2; O2SAT 95
[2017-12-31 07:15] LABS: HCT 39.8 % (36.0-46.0); HGB 13.4 g/dL (12.0-15.5); Mean Corp. HGB Concentration 33.7 g/dL (32.0-36.0); Mean Corpuscular Hemoglobin 27.6 pg (27.0-33.0); Mean Corpuscular Volume 81.9 fL (80-95); Mean Platelet Volume 8.8 fL (8.0-11.0); Platelet Count 298 x1000/uL (130-400); RBC 4.86 m/cumm (4.00-5.20); RBC Distribution Width 13.7 % (11.7-14.6)
[2017-12-31 07:32] LABS: Anion Gap 9.5 mmol/L (3-11); BUN 13 mg/dL (7-18); CO2 27.5 mmol/L (21.0-32.0); CREATININE 0.85 mg/dL (0.55-1.02); Calcium 9.3 mg/dL (8.5-10.1); Chloride 103 mmol/L (98-107); Glucose 129 mg/dL (70-100); Potassium 4.1 mmol/L (3.5-5.1); Sodium 140 mmol/L (136-145)
[2017-12-31] MEDS: predniSONE 20 MG TAB 40 MG PO ×2 (07:59→18:57)
[2017-12-31 08:00] VITALS: O2SAT 97
[2017-12-31] MEDS: Amoxicillin 875/Clav. 125 TAB PO ×2 (08:49→19:29)
[2017-12-31] MEDS: Sulfameth/Trimeth DS TAB 1 TAB PO ×2 (08:49→19:29)
[2017-12-31] MEDS: Polyethylene Glycol 3350 17 GM PACKET PO (09:46)
--- NOTE | 2017-12-31 13:43 | PGE_ITS ---
Assessment and Plan (1) Periorbital cellulitis of left eye: Current visit: Yes Status: Acute Left sided Preseptal Cellulitis. CT with mild preseptal soft tissue swelling on the left without discrete fluid collection or abscess. The extraocular muscles, globes and intraorbital fat also appeared intact. There was no abnormality seen in the visualized portions of the brain. Patient with what appears to be a arnaldo-orbital process, but with symptoms that are concerning for progression to orbital cellulitis. However, symptoms are now vastly improved. Will discontinue IV vancomycin and Zosyn after 3 days of therapy, and change to PO Bactrim and Augmentin. Monitor for additional day and plan on discharge if symptoms continue to improve. As per discussion with Dr. Sabrina Cuellar, there is potential for inflammatory etiology for patient's symptoms as well - started on oral steroids and topical Antibiotic/steroid combination yesterday. (2) Seasonal allergies: Current visit: Yes Status: Acute Stable. Continue PRN Claritin. Subjective Interval history since last seen: Very pleasant 57 year old female without a significant medical history, admitted from [facility] emergency department on 2017 with a diagnosis of left sided arnaldo-orbital cellulitis. Mrs. 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 Her vision remained intact. She reported waking up in the morning prior to her admission with a swollen left eye. She was in her normal state of health the night prior. She reports having a recent illness with symptoms of fatigued, however, she denies any recent rhinosinusitis, orbital trauma, ophthalmic surgery, or dental infections. She denied any fevers at home. Work up in the ED included labs, which were remarkable for an elevated CRP at 1.51, but without leukocytosis. She had an Oribital CT which revealed mild soft tissue swelling around the left orbit, but no signs of orbital cellulitis. She was empirically started on Vancomycin and Zosyn in the ED, and referred for admission. This morning the patient reports continued improvement in her symptoms, including vastly decreased swelling, ability to open her left eye, and vastly improved to resolved pain. No overnight events reported. She remains afebrile. Exam Const General: cooperative and no acute distress Orientation: alert and oriented x3 HENMT Head: normocephalic and atraumatic Eyes Periorbital: periorbital findings abnormal (Edema surrounding left eye vastly improved. left eye lid now open. ) Conjunctivae: conjunctival abnormality (injected and inflammed previously, also vastly improved.) EOM: EOM intact bilaterally (EOM intact, however, she has significant pain on lateral movement of the left eye especially left gaze.) Neck Neck: normal visual inspection and supple Neuro General: alert, awake and oriented x3 Objective Objective Clinical Data: Abnormal lab results 12/31/17 Range/Units 06:54 Glucose 129 H (70-100) mg/dL Vital Signs Temp 36.2 C L 12/31/17 07:15 Pulse 86 12/31/17 07:15 Resp 20 12/31/17 07:15 BP 124/78 12/31/17 07:15 Pulse Ox 97 12/31/17 08:00 Intake & Output 12/30/17 12/31/17 12/31/17 23:59 11:59 23:59 Intake Total 900 / 900 950 / 950 Balance 900 / 900 950 / 950 Intake: IV 410 / 410 300 / 300 Oral 490 / 490 650 / 650 Other: Urine Appearance Clear Clear Comment pt gets up AD SANDIE to void. independant Stool Size Small Stool Characteristics Formed Brown Voiding Methods Toilet Laboratory Results WBC 7.90 k/cumm (4.4-10.8) 12/31/17 06:54 RBC 4.86 m/cumm (4.00-5.20) 12/31/17 06:54 Hgb 13.4 g/dL (12.0-15.5) 12/31/17 06:54 Hct 39.8 % (36.0-46.0) 12/31/17 06:54 MCV 81.9 fL (80-95) 12/31/17 06:54 MCH 27.6 pg (27.0-33.0) 12/31/17 06:54 MCHC 33.7 g/dL (32.0-36.0) 12/31/17 06:54 RDW 13.7 % (11.7-14.6) 12/31/17 06:54 Plt Count 298 x1000/uL (130-400) 12/31/17 06:54 MPV 8.8 fL (8.0-11.0) 12/31/17 06:54 Immature Gran % 0.2 12/28/17 12:20 Neutrophils % 58.6 12/28/17 12:20 Lymphocytes % 28.8 12/28/17 12:20 Monocytes % 5.7 12/28/17 12:20 Eosinophils % 6.2 12/28/17 12:20 Basophils % 0.5 12/28/17 12:20 Absolute Neutrophils 5.78 k/cumm (1.2-6.7) 12/28/17 12:20 Absolute Lymphocytes 2.84 k/cumm (1.2-3.4) 12/28/17 12:20 Absolute Monocytes 0.56 k/cumm (0.11-0.7) 12/28/17 12:20 Absolute Eosinophils 0.61 k/cumm (0.0-0.7) 12/28/17 12:20 Absolute Basophils 0.05 k/cumm (0.0-0.2) 12/28/17 12:20 Sodium 140 mmol/L (136-145) 12/31/17 06:54 Potassium 4.1 mmol/L (3.5-5.1) 12/31/17 06:54 Chloride 103 mmol/L (98-107) 12/31/17 06:54 Carbon Dioxide 27.5 mmol/L (21.0-32.0) 12/31/17 06:54 Anion Gap 9.5 mmol/L (3-11) 12/31/17 06:54 BUN 13 mg/dL (7-18) 12/31/17 06:54 Creatinine 0.85 mg/dL (0.55-1.02) 12/31/17 06:54 Estimated GFR/1.73 m2 >= 60.00 (mL/min/1.73m2) 12/31/17 06:54 Glucose 129 mg/dL (70-100) H 12/31/17 06:54 Calcium 9.3 mg/dL (8.5-10.1) 12/31/17 06:54 Magnesium 2.2 mg/dL (1.8-2.4) 12/28/17 12:20 Total Bilirubin 0.8 mg/dL (0.2-1.0) 12/28/17 12:20 AST 19 U/L (15-37) 12/28/17 12:20 ALT 24 U/L (12-78) 12/28/17 12:20 Alkaline Phosphatase 107 U/L (46-116) 12/28/17 12:20 C-Reactive Protein 1.51 mg/dL (0.0-0.3) H 12/28/17 12:20 Total Protein 8.6 g/dL (6.4-8.2) H 12/28/17 12:20 Albumin 4.0 g/dL (3.4-5.0) 12/28/17 12:20 Vancomycin Trough 14.3 ug/mL (10.0-20.0) 12/29/17 18:35
--- NOTE | 2017-12-31 14:40 | PDOC.CMPRO ---
- If Service Date Differs Date of service: 12/31/17 Time of Service: 14:40 Care Management Progress Note S/O: Cassi is sitting up in bed when this automotive service writer visits this morning. She is pleasant and open to discussion. Per morning report Cassi will transition from IV to PO antibiotics today and if she does well on PO antibiotics may be able to DC home tomorrow. A:Cassi is a 57 year old female admitted with Periorbital cellulites of left eye P:Cassi will be discharged to home when medically ready per provider. Anticipate no additional services upon discharge. CM to continue to provide support to Pt, family and care team ongoing discharge planning.
--- NOTE | 2017-12-31 14:45 | CMPROGNOTE_ITS ---
- If Service Date Differs Date of service: 12/31/17 Time of Service: 14:40 Care Management Progress Note S/O: Cassi is sitting up in bed when this fiction writer visits this morning. She is pleasant and open to discussion. Per morning report Cassi will transition from IV to PO antibiotics today and if she does well on PO antibiotics may be able to DC home tomorrow. A:Cassi is a 57 year old female admitted with Periorbital cellulites of left eye P:Cassi will be discharged to home when medically ready per provider. Anticipate no additional services upon discharge. CM to continue to provide support to Pt, family and care team ongoing discharge planning.
--- NOTE | 2017-12-31 15:22 | CHAPLAIN ---
Cassi was pleasant and easily engaged in a conversation. She seems to be comfortable being here. She hopes to be going home soon. She lives with her and four kids, 10, 14, 15, and 16 years old.
[2017-12-31 16:10] VITALS: BP 116/72; PULSE 86; RESP 18; TEMP 36.8; O2SAT 97
[2017-12-31 19:35] VITALS: BP 121/81; PULSE 53; RESP 16; TEMP 36.7; O2SAT 98
[2018-01-01 00:30] VITALS: BP 115/73; PULSE 66; RESP 16; TEMP 36.5; O2SAT 95
[2018-01-01 04:00] VITALS: BP 118/67; PULSE 64; RESP 15; TEMP 36.6; O2SAT 97
[2018-01-01 07:30] VITALS: O2SAT 96
[2018-01-01 07:41] LABS: HCT 41.6 % (36.0-46.0); HGB 13.9 g/dL (12.0-15.5); Mean Corp. HGB Concentration 33.4 g/dL (32.0-36.0); Mean Corpuscular Hemoglobin 27.6 pg (27.0-33.0); Mean Corpuscular Volume 82.5 fL (80-95); Mean Platelet Volume 9.1 fL (8.0-11.0); Platelet Count 363 x1000/uL (130-400); RBC 5.04 m/cumm (4.00-5.20); RBC Distribution Width 14.1 % (11.7-14.6)
[2018-01-01 07:42] LABS: Anion Gap 12.2 mmol/L (3-11); BUN 15 mg/dL (7-18); CO2 23.8 mmol/L (21.0-32.0); CREATININE 0.77 mg/dL (0.55-1.02); Calcium 9.4 mg/dL (8.5-10.1); Chloride 103 mmol/L (98-107); Glucose 116 mg/dL (70-100); Potassium 3.9 mmol/L (3.5-5.1); Sodium 139 mmol/L (136-145)
[2018-01-01 07:43] VITALS: BP 128/80; PULSE 78; RESP 18; TEMP 36.1; O2SAT 97
[2018-01-01] MEDS: Amoxicillin 875/Clav. 125 TAB PO (08:22)
[2018-01-01] MEDS: Sulfameth/Trimeth DS TAB 1 TAB PO (08:23)
[2018-01-01] MEDS: predniSONE 20 MG TAB 40 MG PO (08:23)
[2018-01-01 11:05] VITALS: BP 123/74; PULSE 69; RESP 19; TEMP 36.9; O2SAT 98
--- NOTE | 2018-01-01 11:22 | W.PM.DS.N ---
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 Her vision remained intact. She reports waking up yesterday morning with a swollen left eye. She was in her normal state of health the night prior. She reports having a recent virus, where she was fatigued, however, she denied any recent rhinosinusitis, orbital trauma, ophthalmic surgery, or dental infections. She denied having fevers at home, she had been experiencing headaches and nausea, her appetite has been normal. Work up in the ED included labs, which were remarkable for an elevated CRP at 1.51, she had no leukocytosis. She had an Oribital CT which revealed mild soft tissue swelling around the left orbit. She was empirically started on Vancomycin and Zosyn in the ED. She was admitted to the Med/Surg floor for further observation and management. Her symptoms improved. By the day of discharge, she has residual pain in the affected eye only when she looks straight up and to the far right. Her EOMs are intact, PERRLA, she denies diplopia and photophobia. The swelling to her left eye has decreased drastically. There is mild conjunctival injection. She received steroids both systemically and via eye drops. She transitioned from IV vancomycin and Zosyn to oral bactrim and augmentin. She will be discharged home on oral antibiotics and with optical steroids. She will follow up with Dr. Cuellar in the office the day following her discharge from the hospital. She will follow up with her PCP. We will have labs drawn in 3 days time. Home Meds and New Rx's Prescriptions: New sulfamethoxazole-trimethoprim 800-160 mg Tablet 1 tab PO BID Qty: 6 RF: 0 amoxicillin-pot clavulanate 875-125 mg Tablet 1 tab PO BID Qty: 6 RF: 0 tobramycin-dexamethasone 0.3-0.1 % Drops,Suspension 1 ml OU Q4H 2 Days Qty: 3 RF: 0 Continue multivitamin 1 EACH tablet 1 ea PO DAILY RF: 0 loratadine-pseudoephedrine [Claritin-D 12 Hour] 1 EACH tablet extended release 12 hr 1 tab-cap PO Q12H PRN RF: 0 ibuprofen 200 MG tablet 600 mg PO Q6H PRN RF: 0 Discharge Instructions Instructions: Periorbital Cellulitis in Adults (DC) Additional Instructions: You will need to have labs drawn on Sunday to recheck your white blood cell count, the results will go to your PCP. Follow up with Dr. Cuellar and your PCP as scheduled. Take care! Stand Alone Forms: Nursing Discharge Form Referrals: [facility] [Outside] - 01/02/18 12:10 pm Keith Demarco MD [Primary Care Provider] - 01/14/18 11:25 am Activity:: Activity as Tolerated Equipment/Supplies:: No Equipment Needed Diet:: as tolerated Discharge Orders Discharge Orders: Discharge Order (Routine); Ordered 01/01/18 Ordered By: Fatou Rojas Other Ambulatory Orders: Complete Blood Count No Diff (Routine) Timeframe: 3 Days Location: Determined by Patient Ordered By: Fatou Rojas Discharge Data Discharge Date/Time-TO BE ENTERED AT DEPARTURE: 01/01/18 13:00 DS: Data Vitals/I&O Vitals and I&O: Vital Signs Temp 36.9 C 01/01/18 11:05 Pulse 69 01/01/18 11:05 Resp 19 01/01/18 11:05 BP 123/74 01/01/18 11:05 Pulse Ox 98 01/01/18 11:05 Intake & Output 12/31/17 12/31/17 01/01/18 11:59 23:59 11:59 Intake Total 950 / 950 240 / 240 540 / 540 Balance 950 / 950 240 / 240 540 / 540 Intake: IV 300 / 300 Oral 650 / 650 240 / 240 540 / 540 Other: Urine Appearance Clear Clear Clear Comment independant pt gets Up to void AD SANDIE. independant to toilet Stool Size Moderate Voiding Methods Toilet Labs on day of discharge: Labs from last 24 hours 01/01/18 01/01/18 06:28 06:28 WBC 17.40 H D RBC 5.04 Hgb 13.9 Hct 41.6 MCV 82.5 MCH 27.6 MCHC 33.4 RDW 14.1 Plt Count 363 MPV 9.1 Sodium 139 Potassium 3.9 Chloride 103 Carbon Dioxide 23.8 Anion Gap 12.2 H BUN 15 Creatinine 0.77 Estimated GFR/1.73 m2 >= 60.00 Glucose 116 H Calcium 9.4 Preliminary micro results at discharge 12/28/17 12:45 Blood Culture - Preliminary Blood NO GROWTH 72 HOURS 12/28/17 12:20 Blood Culture - Preliminary Blood NO GROWTH 72 HOURS
--- NOTE | 2018-01-01 12:03 | PDOC.CMDIS ---
- If Service Date Differs Date of service: 01/01/18 Time of Service: 12:03 LACE Index Scoring Tool - Questions: Length of Stay (in days): 4 - 6 Acuity (Admit via E.D.?): Yes E.D. Visits: 1 - Answers: Total Score: 8 Risk of Readmission: Low Risk Care Management Discharge Reason for Hospitalization: Left Periorbital Cellulitis Discharge Plan: Cassi will return home today with no services. She will F/U with PCP and plan of care as prescribed. Cassi's SO will transport when ready. Patient/Family Education Needs: Review DC instructions, any limitations, and discuss Ask Me Three
== END 2018-01-01 13:00 | disposition home or self-care (01) | DRG 603 ==
LOC: ER 14:48 → MS 15:01
PROVIDERS: Nurse Practitioner; Admitting Provider Internal Medicine; Emergency Provider Emergency Medicine; PCP Internal Medicine; Visit Provider Family Medicine
DX: L03.213 Periorbital cellulitis (principal); J30.2 Other seasonal allergic rhinitis
CPT/HCPCS: 36410; 36415; 80048; 80053; 85027; 87040; 96361; 96365; 96367; 99222; 99232; 99239; 99285; J1650; 70481; 80202; 83735; 85025; 86140; 99238; 99284; J1885; J2543; J3490; J7512

== ENCOUNTER 2018-01-04 15:51 | Outpatient (CLI) | payer BC, SELFPAY ==
[2018-01-04 16:14] LABS: HCT 37.8 % (36.0-46.0); Mean Corp. HGB Concentration 34.4 g/dL (32.0-36.0); Mean Corpuscular Hemoglobin 28.1 pg (27.0-33.0); Mean Corpuscular Volume 81.6 fL (80-95); Mean Platelet Volume 8.7 fL (8.0-11.0); Platelet Count 340 x1000/uL (130-400); RBC 4.63 m/cumm (4.00-5.20); RBC Distribution Width 13.8 % (11.7-14.6)
== END 2018-01-04 16:11 ==
PROVIDERS: Visit Provider Nurse Practitioner
DX: L03.213 Periorbital cellulitis (principal)
CPT/HCPCS: 36415; 85027

== ENCOUNTER 2018-01-24 09:11 | Outpatient (REF) | payer BC, SELFPAY ==
[2018-01-24 12:12] LABS: Cholesterol 244 mg/dL (50-200); HDL Cholesterol 56 mg/dL (40-60); LDL CHOLESTEROL 166 mg/dL (<100); Triglyceride 117 mg/dL (30-150)
== END 2018-01-24 09:31 ==
LOC: NCHCN 09:11
PROVIDERS: PCP Internal Medicine; Visit Provider Family Medicine
DX: Z00.00 Encounter for general adult medical examination without abnormal findings (principal); Z13.220 Encounter for screening for lipoid disorders
CPT/HCPCS: 80061; 83721

== ENCOUNTER 2018-01-31 00:33 | Outpatient (CLI) | payer BC, SELFPAY ==
--- NOTE | 2018-01-31 12:55 | DI.MAMMO_ITS ---
SYMPTOMS/DIAGNOSIS: SCREENING, Z12.31 BILATERAL SCREENING MAMMOGRAM: Comparison is made with exams from 2011 through 2016. The breasts are composed of fatty density tissue. There is a small island of residual breast tissue in the superior left breast. No suspicious masses or suspicious microcalcifications are seen. There has been no significant change. IMPRESSION: Category 1A, negative mammogram. Routine screening is recommended. SA ASSESSMENT OF FINDINGS: Negative. Category 1. Patient will receive a letter notifying them of these results. BI-RAD category A. The breasts are almost entirely fatty.
== END 2018-01-31 00:53 ==
PROVIDERS: PCP Internal Medicine; Visit Provider Family Medicine
DX: Z12.31 Encounter for screening mammogram for malignant neoplasm of breast (principal)
CPT/HCPCS: 77063; 77067

== ENCOUNTER 2018-04-10 21:36 | Emergency (ER) | payer MEDICAID, SELFPAY ==
[2018-04-10 21:38] VITALS: BP 129/77; PULSE 79; RESP 20; TEMP 36.6; O2SAT 97
--- NOTE | 2018-04-10 21:43 | DI.RAD_ITS ---
SYMPTOM/DIAGNOSIS: KNEE PAIN RIGHT KNEE: The bony structures are normally mineralized. There is no evidence of a fracture or dislocation, or joint effusion. Very minimal degenerative changes are also apparent.
--- NOTE | 2018-04-10 21:46 | ED.GENADUL_ITS ---
Discharge Plan Disposition Patient Disposition: HOME Discharge Details Chief Complaint: Orthopedic Primary Care Provider: Keith Demarco ED Provider: Segundo Becerra Home Meds and New Rx's Prescriptions: No Action multivitamin 1 EACH tablet 1 ea PO DAILY RF: 0 ibuprofen 200 MG tablet 600 mg PO Q6H PRN RF: 0 Discharge Data Discharge Date/Time-TO BE ENTERED AT DEPARTURE: 04/11/18 00:12 Medical Decision Making Patient presenting the emergency department with chief complaint of knee pain. Patient denies any specific injury or trauma but does state that she had been in [facility] walking around a lot when she noticed worsening knee pain. Pain is got so severe that she cannot bear weight upon affected extremity. Physical exam shows medial laxity and pain with medial ligamentous testing and lateral joint line tenderness. Physical exam is otherwise unremarkable. Given patient being unable to weight-bear radiological imaging was ordered. Pending results patient given ibuprofen for discomfort. Neurological imaging shows no acute fracture dislocation shows some possible arthritic changes otherwise no emergent findings are noted. Patient was encouraged to use ibuprofen as needed for discomfort, patient placed in a hinged knee brace, and due to not being able to bear weight patient placed on crutches. Patient was encouraged to use crutches for the next 2-3 days and rest the extremity and advance activity as tolerated and if not improving contact orthopedist for reassessment. There is concern for medial ligament sprain along with possible meniscal injury. HPI General Mode of arrival: wheelchair . Date/Time Provider Initiated Documentation: 04/10/18 21:38 . Limitations to Documentation: no limitations . Information obtained by: patient and RN notes reviewed . History of Present Illness 57 year old F presents to the emergency department with the chief complaint of right knee pain, described as moderate, with intensity rated at 8. Quality is described as sharp, and is localized to the right and lower extremity. Patient distal. Patient started experiencing this day(s) (3) a nd it has been constant. No relieving factors improve symptom(s), Movement worsens symptoms . Patient notes no other symptoms.. Patient did receive the following treatments prior to arrival, none Related Data Home Medications Medication Instructions Recorded Confirmed ibuprofen 600 mg PO Q6H PRN tab-cap 08/10/14 04/10/18 multivitamin 1 ea PO DAILY 08/10/14 04/10/18 Allergies Allergy/AdvReac Type Severity Reaction Status Date / Time No Known Allergies Allergy Unverified 04/10/18 21:42 General Stated Complaint: Orthopedic CHRIS: 3 Review of Systems Constitutional Denies frequent falls Cardiovascular Denies chest pain, Denies syncope and Denies dyspnea Respiratory Denies dyspnea Musculoskeletal Reports as per HPI, Denies numbness and Reports tingling Neurologic Denies syncope, Denies frequent falls, Denies numbness and Reports tingling PFSH Medical History H/O: hysterectomy (Chronic) Seasonal allergies (Acute) Aneurysm (Acute) FHx: lung cancer (Acute) Surgical History Hx of LASIK (Acute) Family History Other Aneurysm FHx: lung cancer Social History Smoking/Tobacco Use Status: Never Exam Const General: cooperative, healthy appearing and no acute distress Orientation: alert, awake and oriented x3 Resp Effort & Inspection: normal respiratory effort and able to speak in complete sentences Cardio Rate: regular rate Rhythm: regular rhythm Extrem Right lower extremity: knee Details: tenderness Location: of the lateral joint line, of the distal upper leg Details: medially and of the proximal tibia Details: medially, swelling Location: of the infrapatellar area (mild), abnormal ROM Details: pain with active ROM during Details: in flexion; able to extend l ower leg actively and knee ligament exam abnormal Details: valgus stress test normal Details: both pain and laxity noted; anterior drawer test abnormal, posterior drawer test abnormal and no pain with axial loading; no crepitus, lower leg Details: normal to inspection, ankle Details: normal to inspection and foot Details: normal capillary refill and vascular exam Details: dorsalis pedis pulse present and posterior tibial pulse present Course Vital Signs Temperature 36.6 C 04/10/18 21:38 Pulse 79 04/10/18 21:38 Respiratory Rate 20 04/10/18 21:38 Blood Pressure 129/77 04/10/18 21:38 Pulse Oximetry 97 04/10/18 21:38 Temperature 36.6 C 04/10/18 21:38 Temperature Source Temporal Artery Scan 04/10/18 21:38 Pulse 79 04/10/18 21:38 Respiratory Rate 20 04/10/18 21:38 Respiratory Effort Non-Labored 04/10/18 21:38 Blood Pressure 129/77 04/10/18 21:38 Blood Pressure Position Sitting 04/10/18 21:38 Pulse Oximetry 97 04/10/18 21:38 Oxygen Delivery Method Room Air 04/10/18 21:38 Oxygen Flow Rate 0 04/10/18 21:38 Pain Level 8 04/10/18 21:43
[2018-04-10] MEDS: Ibuprofen 600 MG TAB PO (22:19)
--- NOTE | 2018-04-10 22:35 | DI.VRAD_ITS ---
EXAM: XR Right Knee, 3 Views EXAM DATE/TIME: 04/10/2018 9:44 PM CLINICAL HISTORY: 57 years old, female; Injury or trauma; Fall; Initial encounter; Blunt trauma; Knee; Right TECHNIQUE: XR Right knee 3 views. COMPARISON: CR RIGHT KNEE 3 VIEWS 05/05/2013 10:15 AM FINDINGS: Bones/joints: No fracture or dislocation. Minimal early primary osteoarthritis. No lytic or blastic lesions. No joint effusion or loose body. Soft tissues: Soft tissues unremarkable. No foreign body. IMPRESSION: 1. No acute fracture or dislocation. 2. Minimal changes of early primary osteoarthritis. Dictated and Authenticated by: Adama Joya MD. Ordering:KHRIS Raymond MD
[2018-04-11 00:07] VITALS: BP 129/77; PULSE 79; RESP 20; TEMP 36.6; O2SAT 97
== END 2018-04-11 00:12 | disposition home or self-care (01) ==
PROVIDERS: Emergency Provider Nurse Practitioner Family; PCP Internal Medicine
DX: S83.411A Sprain of medial collateral ligament of right knee, initial encounter (principal); X50.9XXA Other and unspecified overexertion or strenuous movements or postures, initial encounter
CPT/HCPCS: 73562; 99283; E0114; L1810

== ENCOUNTER 2018-10-07 09:16 | Outpatient (CLI) | payer MEDICAID, SELFPAY ==
--- NOTE | 2018-10-07 09:06 | DI.RAD_ITS ---
SYMPTOM/DIAGNOSIS: RIGHT KNEE PAIN RIGHT KNEE: A single PA Heredia view was performed. There is moderate narrowing of the lateral femoral tibial joint. There is spurring from the lateral femoral condyle and lateral tibial plateau. Mild spurring is also seen medially, IMPRESSION: Moderate degenerative changes of the lateral femoral tibial joint.
--- NOTE | 2018-10-07 09:06 | DI.RAD_ITS ---
SYMPTOM/DIAGNOSIS: RIGHT KNEE PAIN. STANDING ALIGNMENT: AP views were performed from above the iliac crest through the ankles. The hip joint spaces are well maintained and there is mild acetabular spurring. The left femoral head projects approximately 5 mm superior to the right. There is mild narrowing of the lateral femoral tibial joint of the right knee and some valgus angulation at the right knee. The left knee shows preserved joint spaces. Degenerative changes are seen at the ankles, right greater than left. IMPRESSION: Degenerative changes of the lateral femoral tibial joint of the right knee and mild leg length discrepancy.
== END 2018-10-07 09:36 ==
PROVIDERS: PCP Internal Medicine; Visit Provider Student in an Organized Health Care Education/Training Program
DX: M17.11 Unilateral primary osteoarthritis, right knee (principal); M25.561 Pain in right knee; M21.70 Unequal limb length (acquired), unspecified site
CPT/HCPCS: 73560; 77073

== ENCOUNTER 2018-11-08 09:40 | Outpatient (CLI) | payer MEDICAID, SELFPAY ==
[2018-11-08 11:51] LABS: HCT 40.7 % (36.0-46.0); HGB 13.7 g/dL (12.0-15.5); Mean Corp. HGB Concentration 33.7 g/dL (32.0-36.0); Mean Corpuscular Hemoglobin 27.8 pg (27.0-33.0); Mean Corpuscular Volume 82.6 fL (80-95); Mean Platelet Volume 8.9 fL (8.0-11.0); Platelet Count 340 x1000/uL (130-400); RBC 4.93 m/cumm (4.00-5.20); RBC Distribution Width 13.9 % (11.7-14.6); White Blood Cell Count 8.16 k/cumm (4.4-10.8)
[2018-11-08 12:42] LABS: BUN 18 mg/dL (7-18); CREATININE 0.67 mg/dL (0.55-1.02); Calcium 9.2 mg/dL (8.5-10.1); Chloride 102 mmol/L (98-107); Glucose 78 mg/dL (70-100); Potassium 4.5 mmol/L (3.5-5.1); Sodium 139 mmol/L (136-145)
--- NOTE | 2018-11-08 18:18 | HPE_ITS ---
Date of service: 11/08/18 Assessment and Plan (1) Right knee DJD: Current visit: No Status: Chronic Right total knee replacement Details of surgery were discussed with patient as well as risks and pertinent anatomy. All questions were answered. Qualifiers: Osteoarthritis type: primary Qualified Code(s): M17.11 - Unilateral primary osteoarthritis, right knee History of Present Illness Chief Complaint: Right knee pain Narrative: Cassi is a 58-year-old female who comes in today for a preop history and physical for a right total knee replacement. She has been dealing with right knee pain for many years, but it r eally has gotten significantly worse in the last few months. She works with dogs in a kennel, and is constantly walking on uneven ground and doing chores around her property. With this activity she is getting an increase in her right knee pain. She has tried conservative treatment including a Synvisc injection at her last visit on 10/07/2018, and she feels as though this injection only aggravated her symptoms. She states that within the last couple of weeks, her ability to get around and do her daily activities has become even more difficult. Since she has failed conservative treatment, and imaging suggest that she has pretty severe arthritis of the right knee, Dr. Almanzar does offer a right total knee replacement at this time. Cassi agrees with this plan and is anxious to proceed. Pertinent Surgical Information Patient denies history of hypertension, CVA, MA, angina, asthma, COPD, renal or liver disorders, hepatitis, bleeding disorders, diabetes, immune or thyroid disorders. No complications from anesthesia. Review of Systems Constitutional Denies fever(s) ENT Denies dizziness and Denies sore throat Cardiovascular Denies chest pain, Denies palpitations and Denies dyspnea Respiratory Denies cough and Denies dyspnea Gastrointestinal Denies abdominal pain, Denies melena, Denies hematochezia, Denies diarrhea, Denies nausea and Denies vomiting Genitourinary Denies hematuria and Denies dysuria Neurologic Denies dizziness Endocrine Denies palpitations PFS Medical History Aneurysm (Acute) FHx: lung cancer (Acute) Seasonal allergies (Acute) Surgical History H/O: hysterectomy (Inactive) History of partial hysterectomy (Acute) Hx of LASIK (Inactive) Family History Other Aneurysm FHx: lung cancer Social History Smoking/Tobacco Use Status: Never Drug use: Never Do you feel safe in your relationship?: Yes Meds Home Medications Medication Instructions Recorded Confirmed Type ibuprofen 600 mg PO Q6H PRN tab-cap 08/10/14 11/08/18 History multivitamin 1 ea PO DAILY 08/10/14 11/08/18 History acetaminophen [Tylenol] 2 mg PO DAILY PRN 11/08/18 11/08/18 History loratadine-pseudoephedrine 1 tab PO Q12H PRN 11/08/18 11/08/18 History [Claritin-D 12 Hour] omega 8-cps-hsg-fish oil [Fish Oil] 1 cap PO DAILY 11/08/18 11/08/18 History Allergies Allergy/AdvReac Type Severity Reaction Status Date / Time No Known Allergies Allergy Unverified 11/08/18 10:03 Exam [facility] Head: normocephalic and atraumatic General nose exam: no nasal discharge Throat: uvula midline and no uvular edema Other: soft palate rises symmetrically, no erythema Eyes Conjunctivae: conjunctivae normal Sclera: sclerae normal Pupils: PERRL Resp Effort & Inspection: normal respiratory effort Auscultation: clear to auscultation bilaterally and no wheezes Cardio Rate: regular rate Rhythm: regular rhythm Heart Sounds: S1 normal, S2 normal and no murmurs GI Palpation: soft, no hepatosplenomegaly and nontender Auscultation: normal bowel sounds Results Labs : 11/08/18 11:24 11/08/18 11:24 Laboratory Results - last 24 hr 11/08/18 11/08/18 11:24 11:24 WBC 8.16 RBC 4.93 Hgb 13.7 Hct 40.7 MCV 82.6 MCH 27.8 MCHC 33.7 RDW 13.9 Plt Count 340 MPV 8.9 Sodium 139 Potassium 4.5 Chloride 102 Carbon Dioxide 27.0 Anion Gap 10.0 BUN 18 Creatinine 0.67 Estimated GFR/1.73 m2 >= 60.00 Glucose 78 Calcium 9.2
== END 2018-11-08 10:00 ==
PROVIDERS: PCP Family Medicine; Visit Provider Student in an Organized Health Care Education/Training Program
DX: M25.561 Pain in right knee (principal); M17.11 Unilateral primary osteoarthritis, right knee; Z01.812 Encounter for preprocedural laboratory examination; Z01.818 Encounter for other preprocedural examination
CPT/HCPCS: 36415; 80048; 85027; NC

== ENCOUNTER 2018-11-28 11:29 | Observation (INO) | payer MEDICAID, SELFPAY ==
[2018-11-28] VITALS (14 sets, daily range): BP systolic 87–141; BP diastolic 55–102; PULSE 62–91; RESP 12–18; TEMP 35.4–36.6; O2SAT 91–100
[2018-11-28] MEDS: Lactated Ringers 1,000 ML 80 ML IV ×2 (12:14→16:24)
[2018-11-28] MEDS: Acetaminophen 500 MG TAB 1000 MG PO (12:14)
[2018-11-28] MEDS: oxyCODONE-CR 10 MG TABCR PO (12:14)
[2018-11-28] MEDS: Celecoxib 200 MG CAP 400 MG PO (12:14)
[2018-11-28] MEDS: Gabapentin 300 MG CAP PO ×2 (12:15→21:29)
[2018-11-28] MEDS: ceFAZolin 2 GM/50 ML BAG IVPB (13:00)
[2018-11-28] MEDS: Bupivacaine 0.25% Pres-Free 30 ML VIAL (14:05)
[2018-11-28] MEDS: Normal Saline 20 ML VIAL (14:06)
[2018-11-28] MEDS: Ketorolac 30 MG/ML VIAL (14:06)
--- NOTE | 2018-11-28 14:32 | W.PM.OP ---
Date of service: 11/28/18 Time of Service: 14:32 Operative Note DATE OF PROCEDURE: 11/28/18 PRE-OP DIAGNOSIS: Right knee osteoarthritis POST-OP DIAGNOSIS: same PROCEDURE: Right Total Knee Replacement SURGEON: Aldair Almanzar TOOL ENGINE LATHE SET UP OPERATOR: Danyelle Beasley ANESTHESIA: regional and spinal ESTIMATED BLOOD LOSS: 150 PATHOLOGY: none sent TOURNIQUET TIME: 31 COMPLICATIONS: None Patient was transported to: PACU Patient's condition: stable Implants: 1. Depuy Attune Posterior Stabilized Femoral Component, Size 4 narrow 2. Depuy Attune Fixed Platform Tibial Component, Size 2 3. Depuy Attune 4 x 7 mm fixed, Stabilized Poly 4. Depuy Attune Patellar Component, Size 32 mm Indications: I have seen Cassi in clinic for symptoms of RIGHT knee arthritis, confirmed with radiographic findings. Cassi has exhausted nonoperative methods and was having significant limitations in daily function and desired better function and less pain. I discussed the technical details of a knee replacement. I explained the risks of the procedure to include, but not limited to, bleeding, infection, pain, stiffness, fracture, damage to nerves and vessels, damage to muscles and tendons, loosening, need for repeat procedure, blood clot and cardiopulmonary demise. Despite these risks, she elected to proceed. Findings: There was significant signs of arthritis throughout the knee primarily involving the lateral femur and patellofemoral joint. Procedure Description: Cassi was greeted in the preoperative holding area where the correct side was identified and marked. The consent was reviewed with the patient and signed. The history and physical was updated. All questions were answered. Preoperative mediacations were administered: Acetaminophen 1000mg, Celebrex 400mg, Gabapentin 300mg, and Oxycontin 10mg. An adductor canal block was then administered by the anesthesia team in the PACU. She was taken back to the operating room. A spinal anesthestic was then administered. The patient was placed into the supine position on the operating room table. A nonsterile tourniquet was placed high onto the leg but only used for cementing. Posts were placed for positioning during the procedure. All bony prominences were well padded. Prophylactic antibiotics in the form of cefazolin were administered. 1g of Tranxemic Acid was given intravenously within 30 minutes of incision. The right leg was then prepped with Chloraprep and draped in a standard fashion with impervious stockinette and extremity drape with Iodine impregnated skin protection. A timeout to confirm correct identity, side and site, procedure, allergies, anesthesia, and medical concerns was performed. With the knee in some flexion, a midline incision was made overlying the knee. Full thickness skin flaps were raised once the extensor mechanism was encountered. These were raised medially and laterally. Any bleeding was controlled with electrocautery. Once the extensor mechanism was fully exposed, a medial parapatellar arthrotomy was performed in a flexed position. All bleeding from the arthrotomy and the geniculate arteries was coagulated. A medial subperiosteal peel was performed with electrocautery to the midcoronal plane. The fat pad was removed while keeping the patellar tendon protected. The anterior distal femur synovium was removed for later visualization. The ACL and PCL were resected and the anterior horn of the lateral meniscus was transected. The knee was then flexed with the patella everted. Using a step drill, and based on preoperative templating, the femoral canal was entered. This was done with a step drill without any difficulty. The intramedullary distal femoral cut guide was inserted, set to a 5 degree valgus cut and 9mm cut thickness. There was some hypoplasia of the lateral femoral condyle and any remnant cartilage of the medial femoral condyle was removed for appropriate thickness. The distal femoral cut guide was then held in position and pinned. With the soft tissues protected, the distal cut was performed. This was passed over a few times to ensure a planar cut. I then turned attention to the tibia. The extramedullary guide was placed onto the leg. The distal aspect was slid medial to adjust for position of center of ankle and stay in line with shaft of the tibia. Approximately 3-5 degrees of posterior slope was kept in the proximal cutting guide. The center of the guide was aligned with the PCL. The stylus was used to assess cut thickness. The lateral side, most involved side, was set for a 5mm cut. This was then held in position and pinned into place with 2 additional pins and a cross pin for stability. The medial and lateral collateral ligaments were protected and the cut was performed. With this completed, it was assessed and noted to be of appropriate dimensions. The guide was removed. A spacer block was inserted and the knee was brought into extension. The 6mm spacer block provided full extension, without hyperextension and with stability of both the medial and lateral collateral ligaments was assessed. The pins from the femur and the tibia were then removed. The distal femur was then sized. The anterior stylus was placed onto the lateral ridge of the anterior femur. This indicated a size 4 femur. The external rotation of the guide was adjusted to 5 degrees to match the epicondylar axis, perpendicular to Ludwig?s line. The 4-in-1 cutting guide was the placed. The posterior medial femur cut was evaluated and appeared of good thickness. The spacer block was inserted underneath the cutting guide and stability was confirmed in 90 degrees of flexion. An kirit wing was used to confirm appropriate position of the anterior cut to avoid notching. This cutting guide was ensured to be flush on the cut surface and then pinned into place with headed pins. While protecting the soft tissues, quad tendon, and collateral ligaments, the anterior and posterior cuts were performed with a saw. The central two pins were removed and the posterior and anterior chamfers were cut next. The notch-cutting guide was placed. This was pinned to lateralize the femoral component as much as possible while keeping it flush on the cut surface. This was then pinned into position. A reciprocating saw was used to make the notch cut. A rasp smoothed the cut surfaces. A trial posterior stabilized femoral component was then inserted, impacted down to the cut surfaces, and the lug holes were drilled. A provisional trial tibial component was placed and the knee was brought through range of motion. The polyethylene was trialed until there was good flexion and extension with excellent stability to the medial and lateral collaterals. The patella was tracking without thumbs. The tibial cut surface was fully exposed. The medial and lateral menisci were removed. The tibia was then sized as a 2. The tibia had been previously marked during trialing to correspond to the center of the tibial component to help with rotation. The trial was aligned to this joselito, approximately rotated to the medial 1/3rd of the tibial tubercle. The trial was pinned into place. The tibia was prepared with a reamer and a keel punch. The knee was then brought into extension and the patella was measured as 22 mm. Using the patellar clamp and cut guide, this was resected to a flat surface with at least 13mm of thickness remaining. The size 32 patella fit the best. This was oriented and then clamped into position. The lugs were drilled. The trial components were removed. The final components, except for the polyethylene were opened on the back table. The periosteal and capsular tissues, especially posteriorly, around the knee were then systematically injected with a periarticular cocktail consisting of 50cc 0.25% Marcaine, 30mg Ketorolac, 20cc of Exparal and 50cc of injectable saline. The tourniquet was then inflated to 275mmHg. The knee was thoroughly irrigated with a pulse lavage and dried. On the back table, with the implants opened, the cement was mixed. 2 batches of antibiotic laden cement were prepared with vacuum assistance. After the cement was ready a small amount was placed on to the back side of the tibial component at the keel. A small amount was placed onto the posterior flange of the femur. Cement was manual pressurized and impregnated into the cut surface of the tibia. The tibial component was then inserted into the cut surface and impacted into position. Excess cement was removed and the component was reimpacted. Again, excess cement was removed and our attention was then turned to the femur. The femoral cut surface was once again dried and cement was manually impacted into the cut surface. The femoral component was lined with the lug holes and impacted. Excess cement was removed. It was ensured to be down against the cut surface. The trial polyethylene was then inserted and the leg was brought out into full extension for the duration of the cement curing process, approximately 15min. Cement was lastly manually impacted into the cut surface of the patella and the patellar button was clamped into position and held. During this process attention was turned to the gutters of the knee and for all interfaces for any excess cement. After the cement had finally cured, approximately 15min, the clamp was removed from the patella and the knee was taken through range of motion. A size 7 mm polyethylene component provided the best range of motion and stability with less than 2mm gapping with medial and lateral stress and full extension without significant hyperextension. The patella was tracking with a no-thumbs technique. The trial poly was removed and once again the knee was checked for any loose, excess, or errant cement. The poly component was then inserted and impacted into position after cleaning and drying the tibial tray. The capsule was then reapproximated with a No. 1 Vicryl at multiple locations. The capsule was finally closed with a No. 2 Stratafix, barbed suture. The tourniquet was then released and the arthrotomy appeared watertight without significant bleeding. The second dosing of 1g TXA was started. Deep tissues were then reapproximated with 0 Vicryl and 2-0 Vicryl. The skin was closed with a running 3-0 Monocryl in a subcuticular fashion. This was reinforced with skin glue. A Mepilex silver dressing was applied along with a eguf-du-iiscm NAKIA wrap. A CryoCuff was applied. Cassi was transferred to the hospital bed without difficulty an suffering no apparent complication. Cassi has a good prognosis. Physical therapy will start today and without restrictions, weight-bearing as tolerated. Aspirin 81mg BID will be used for DVT prophylaxis.
--- NOTE | 2018-11-28 16:27 | NUR.NOTE ---
Nursing Note: Patient transferred from PACU to floor via stretcher and hover mat. VSS. See worklist. Report taken from PACU nurse Bri. Regular HR. Positive pedal and radial pulses bilaterally. Patient belongings brought to patient room. Patient drowsy, but easily arousable. Clear lungs, hypoactive bowel sounds. Todd draining clear yellow. O2 96% on room air. Heart rate 82 apically.
[2018-11-28] MEDS: Ibuprofen 600 MG TAB PO (20:47)
[2018-11-28] MEDS: Aspirin E.C. 81 MG TABEC PO (20:49)
[2018-11-29 01:02] VITALS: BP 114/75; PULSE 74; RESP 16; TEMP 36.6; O2SAT 96
[2018-11-29 03:58] VITALS: BP 126/77; PULSE 64; RESP 16; TEMP 36.9; O2SAT 98
[2018-11-29] MEDS: Ibuprofen 600 MG TAB PO ×2 (04:01→11:39)
[2018-11-29] MEDS: Lactated Ringers 1,000 ML 80 ML IV (04:01)
[2018-11-29 08:10] VITALS: BP 134/89; PULSE 77; RESP 18; TEMP 36.5; O2SAT 99
[2018-11-29] MEDS: Omega-3 Fatty Acids 1000 MG CAP PO (08:36)
[2018-11-29] MEDS: Pantoprazole 40 MG TABCR PO (08:37)
[2018-11-29] MEDS: Aspirin E.C. 81 MG TABEC PO (08:37)
[2018-11-29] MEDS: Multivitamin TAB 1 TAB PO (08:37)
--- NOTE | 2018-11-29 09:51 | W.PM.DS.N ---
Date of service: 11/29/18 Time of Service: 09:51 DS: Diagnosis Discharge Diagnosis (1) Right knee DJD: Status: Chronic Discharge Plan Disposition Patient Disposition: HOME Condition: Good Discharge Details Reason For Visit: R Knee DJD Admit Date/Time: 11/28/18 11:29 Admit Provider: Aldair Almanzar Attending Provider: Aldair Almanzar Primary Care Provider: Aarti Hernández [facility] Course Hospital Course: Patient was admitted to the medical/surgical floor following the procedure. It was tolerated well without any notable medical, surgical, or anesthetic complications. Mobilization began postoperatively. The kennedy catheter was removed and voiding spontaneously. Vitals were stable. Physical therapy worked with the patient and was cleared for discharge home. No acute medical issues. Home Meds and New Rx's Prescriptions: New aspirin 81 mg tablet,delayed release (DR/EC) 81 mg PO BID Qty: 60 RF: 0 acetaminophen 500 mg tablet 1,000 mg PO Q8H PRN (Reason: pain) Qty: 90 RF: 3 pantoprazole 40 mg tablet,delayed release (DR/EC) 40 mg PO DAILY Qty: 30 RF: 0 ibuprofen 600 mg tablet 600 mg PO TID PRNQty: 90 RF: 3 oxycodone 5 mg tablet 2.5 - 5 mg PO Q6H PRN PRNQty: 12 RF: 0 Continued multivitamin 1 EACH tablet 1 ea PO DAILY RF: 0 Claritin-D 12 Hour 5-120 mg Tablet Extended Release 12 Hr 1 tab PO Q12H PRNRF: 0 omega 2-ktb-hgs-fish oil [Fish Oil] 1,000 mg (120 mg-180 mg) Capsule 1 cap PO DAILY RF: 0 ascorbic acid (vitamin C) [Vitamin C] 500 mg Tablet 500 mg PO PRN PRNRF: 0 Discontinued ibuprofen 200 MG tablet 600 mg PO Q6H PRN RF: 0 acetaminophen [Tylenol] 325 mg Capsule 2 mg PO DAILY PRNRF: 0 Discharge Instructions Additional Instructions: Dr. Almanzar?s Total Knee Discharge Instructions Activity: The most important activity is to walk. You should try to take short walks a few times a day. It is important that when resting you work on keeping the knee straight. Avoid putting a pillow behind the knee as this will encourage flexion. Work on range of motion exercises as provided by Physical Therapy. - Start outpatient physical therapy within 2 weeks. - You should wear the KARUNA hose on both legs for 2 weeks. Dressing: Keep the surgical dressing in place for at least one week. After the first week it may be removed and replace with light gauze and tape or nothing. It may get wet after 3 days but avoid soaking the dressing. If it gets wet, just lightly pat dry. Medications: - You should take Tylenol and anti-inflammatory Ibuprofen as your primary pain control. - You have been prescribed a stronger pain medication Oxycodone for breakthrough pain, take as needed as prescribed. - You have also been prescribed a stomach acid reduction agent Pantoprozole to help reduce stomach acid and reflux. - You will be taking Aspirin 81mg twice a day for DVT prevention unless instructed otherwise. - If you have constipation you should take Colace or Miralax (both [id number]). It takes most people 3-4 days to have a bowel movement. Follow-up: 2 weeks Stand Alone Forms: Nursing Discharge Form Referrals: Aldair Almanzar MD [ [facility] STAFF PHYSICIAN] - Activity:: Activity as Tolerated Equipment/Supplies:: Walker Diet:: As Tolerated Discharge Orders Discharge Orders: Discharge Order (Routine); Ordered 11/29/18 Ordered By: Aldair Almanzar DS: Data Vitals/I&O Vitals and I&O: Vital Signs Temperature 36.5 C 11/29/18 08:10 Temperature Source Tympanic 11/29/18 08:10 Pulse 77 11/29/18 08:10 Pulse Rhythm Regular 11/29/18 08:45 Respiratory Rate 18 11/29/18 08:10 Respiratory Effort Non-Labored 11/29/18 08:45 Respiratory Depth Normal 11/29/18 08:45 Respiratory Pattern Normal 11/29/18 08:45 Blood Pressure 134/89 11/29/18 08:10 Pulse Oximetry 99 11/29/18 08:10 Respiratory End-tidal CO2 37 11/28/18 15:26 Oxygen Delivery Method Room Air 11/29/18 08:10 Oxygen Flow Rate 0 11/29/18 08:10 Pain Level 4 11/29/18 08:10 Intake & Output 11/28/18 11/28/18 11/29/18 11:59 23:59 11:59 Intake Total 1165 / 1165 1890.666 / 1890.666 Output Total 1400 / 1400 1100 / 1100 Balance -235 / -235 790.666 / 790.666 Weight 80.2 kg Intake: IV 1165 / 1165 1290.666 / 1290.666 Oral 600 / 600 Output: Urine 1250 / 1250 1100 / 1100 Estimated Blood Loss 150 / 150 Other: Urine Color Yellow Yellow Urine Appearance Clear Clear Emesis Description None PFSH Social History Smoking/Tobacco Use Status: Never Drug use: Never Do you feel safe in your relationship?: Yes
--- NOTE | 2018-11-29 11:00 | IN_ITS ---
Date of service: 11/29/18 Time of Service: 09:08 PT Notes Inpatient Physical Therapy Evaluation Date: 11/29/2018 Referring Doctor: Aldair Almanzar MD PT Orders: PT CONSULT: Status post right TKA Precautions: Fall. Standard. WBAT on right LE. Patient Profile/Admitting Diagnosis: Patient is a 58-year-old female with primary unilateral osteoarthritis of right knee and is status post right total knee arthroplasty on postoperative day 1. 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 Patient reports that her family has been very supportive and will take care of all her mobility assistance needs and will provide coverage for overseeing same business. 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 Current Functional Limitations: Need for an assistive device for all transfer and ambulation task performance reduce fall risk Equipment Owned/DME: None Subjective: Patient is agreeable to a PT consult today she is pleasant and is cooperative. She hopes to go home today using her front wheeled walker. She is a little bit concerned with the new erythema on her face. She denies any headache, chest pain, palpitations, nausea, and dizziness. Objective: General Observation: Patient seen resting in bed. Erythema on face notable with concentration on frontal, nasal, and circumoral areas for which nurse was notified. Cryo/Cuff on right knee. TEDS on left knee. Anti-thromboembolic pump on left leg. Ángel wraps on right knee. Patient in NAD. Patient denies any headache, chest pain, nausea, and dizziness throughout PT session. Mental Status: Alert and oriented x4 Pain: 0/10 ROM: Right Upper Extremity: Shoulder Flexion WFL. Shoulder abduction WFL. Elbow flexion WFL. Wrist flexion WFL. Functional opening and closing of hand WFL. Left Upper Extremity: Shoulder Flexion WFL. Shoulder abduction WFL. Elbow flexion WFL. Wrist flexion WFL. Functional opening and closing of hand WFL. Right Lower Extremity: Hip flexion allows up to about 140 without end of range discomfort. Hip abduction WFL. Knee flexion allows up to 100 degrees with minimal discomfort. Knee extension up to -5 degrees . Ankle dorsiflexion WFL. Ankle plantarflexion WFL. Left Lower Extremity: Hip flexion WFL. Hip abduction WFL. Knee flexion WFL. Ankle dorsiflexion WFL. Ankle plantarflexion WFL. Strength: Right Upper Extremity: Shoulder flexors 5/5. Shoulder abductors 5/5. Elbow flexors 5/5. Elbow extensors 5/5. Orderlies Teacher strong. Left Upper Extremity: Shoulder flexors 5/5. Shoulder abductors 5/5. Elbow flexors 5/5. Elbow extensors 5/5. Orderlies Teacher strong. Right Lower Extremity: Hip flexors 3- /5. Hip abductors 5/5. Knee flexors 3- /5. Knee extensors 3- /5. Ankle dorsiflexors 5/5. Ankle plantarflexors 5/5. Left Lower Extremity:Hip flexors 5/5. Hip abductors 5/5. Knee flexors 5/5. Knee extensors 5/5. Ankle dorsiflexors 5/5. Ankle plantarflexors 5/5. Sensation: Intact as to pain and pressure on bilateral lower extremities. Bed Mobility/Transfers: Rolling independent Supine to sit independent Sit to supine independent Sit to stand independent Stand to sit independent Bed to chair independent Chair to bed independent Gait: Patient was able to tolerate level surface ambulation of up to 80 feet x 2 using FWW requiring only supervision assist from PT with no complaints of increased pain on right knee. Using SPC, patient was able to tolerate up-and-down three 4 inch steps and two 6 inch steps with SBA using step to gait pattern with only minimal verbal cues needed for safe techniques and cane management. Balance: Static Sitting: Normal Dynamic Sitting: Normal Static Standing: Good Dynamic Standing: Fair Special Tests: Mobility Limitations Standardized Measure [facility] AM-PAC 6 clicks Basic Mobility Inpatient Short Form: Raw Score: 22 CMS Score: 21% deficit Informed Consent/Education: Patient instructed in purpose of PT consult and plan of care. Patient has been educated and trained on home exercise program per TKA exercise protocol in preparation for outpatient physical therapy services. Assessment: Patient presents with clinical signs and symptoms consistent with current/admitting diagnoses and postoperative status that have resulted to mobility limitationsas demonstrated by the following impairment level findings: 1. Decreased strength to R knee quadriceps 2. Impaired standing balance 3. Impaired activity tolerance 4. Limitation of joint range of motion in R knee and hip Impairments are contributing to the following functional limitations: 1. Inability to safely ambulate without assistive device and physical assistance 2. Increase completion time for mobility ADL performance 3. Increased fall risk 4. Inability to negotiate steps alone safely Patient is assessed as a 17288 moderate complexity based on the following: History: 58-year-old female with right knee degenerative joint disease status post right total knee arthroplasty on postoperative day 1 Examination: Demonstrable impairment in strength, balance, and range of motion with underlying impairments and functional limitations as documented above Presentation:Evolving Decision Makin moderate complexity DISCHARGE RECOMMENDATIONS: May benefit from skilled physical therapy services according to orthopedic surgeon's timeline recommendations. Patient will be educated and trained on home exercise program per TKA exercise protocol in preparation for outpatient physical therapy services. TREATMENT CODE/TIME: 55703 x 30 minutes, 83741 x 18 minutes beginning at 9:08 AM. Thank you very much for this referral. Daniela Branham PT, DPT, CLT [facility]
[2018-11-29 11:30] VITALS: BP 127/82; PULSE 69; RESP 17; TEMP 36.3; O2SAT 100
--- NOTE | 2018-11-29 15:48 | PDOC.CMIN ---
Care Management Initial Assess REASON FOR HOSPITALIZATION:: R TKA PAST MEDICAL HISTORY/PAST SURGICAL HISTORY:: Aneurysm, seasonal allergies, hysterectomy, partial hysterectomy, LASIK PREVIOUS FUNCTIONAL STATUS/SOCIAL/FAMILY SUPPORTS:: Cassi resides in [place], [place] with her Jignesh. She reports having four children, three currently in high school and her own Dog daycare business. She has two [place] at home and two small dogs as well. She enjoys hiking and biking, is active and independent at baseline. CURRENT FUNCTIONAL STATUS:: Cassi was sitting up in her chair when CM entered the room. She was pleasant in interaction and forthcoming with information. She reported anticipating discharging today. ADVANCE DIRECTIVES:: Mailed to Cassi post-discharge Has patient been provided with information about the portal?: Yes Did the patient sign up for the portal?: Yes CODE STATUS:: Full Code INSURANCE COVERAGE / FINANCIAL ISSUES:: Medicaid CURRENT HOME/COMMUNITY SERVICES/EQUIPMENT:: No current services or equipment. PRIMARY CARE PHYSICIAN:: Aarti Hernández POTENTIAL DISCHARGE NEEDS:: PT evaluation, follow up appointment with Dr. Almanzar. PATIENT/FAMILY EDUCATION NEEDS:: Review discharge instructions, discuss Ask Me Three. ANTICIPATED BARRIERS TO DISCHARGE:: None identified. TRANSPORTATION:: Via private vehicle with family. PLAN:: Cassi will return home when ready per MD. She will have a new MD NATHANAEL ordered and coordinated through [facility] per Cassi's request. She will follow up with Dr. Almanzar and her plan of care as prescribed. No additional supports anticipated at this time. Cassi will transport via private vehicle with her .
== END 2018-11-29 13:03 | disposition home or self-care (01) | DRG 470 ==
LOC: PDS 12:44 → MS 11-29 09:52 → PDS 12-03 09:57
PROVIDERS: Admitting Provider Student in an Organized Health Care Education/Training Program; PCP Family Medicine; Visit Provider Student in an Organized Health Care Education/Training Program
PROC: 0SRC0J9 Replacement of Right Knee Joint with Synthetic Substitute, Cemented, Open Approach (ICD-10-PCS; CPT 27447; principal; 2018-11-28 13:00)
DX: M17.11 Unilateral primary osteoarthritis, right knee (principal); Z96.651 Presence of right artificial knee joint; G89.18 Other acute postprocedural pain
CPT/HCPCS: 27447; C1776; 76942; 97162; 97530; NC; G0378; J0171; J0690; J1100; J1885; J2250; J2370; J2405

== ENCOUNTER 2018-12-13 09:07 | Outpatient (CLI) | payer MEDICAID, SELFPAY ==
--- NOTE | 2018-12-13 08:43 | DI.RAD_ITS ---
SYMPTOM/DIAGNOSIS: S/P RT TKA RIGHT KNEE AND LEG LENGTH EXAMINATION: Comparison is made with 10/07/18. Since the prior examination, the patient has had a right total knee replacement. The orthopedic hardware appears in good position. The bones are intact. The left knee is well maintained. The right lower extremity measures 79.4 cm. The left lower extremity measures 79.9 cm. IMPRESSION: Right TKR.
== END 2018-12-13 09:27 ==
PROVIDERS: PCP Family Medicine; Visit Provider Student in an Organized Health Care Education/Training Program
DX: M17.11 Unilateral primary osteoarthritis, right knee (principal); Z96.651 Presence of right artificial knee joint
CPT/HCPCS: 73560; 77073

== ENCOUNTER 2019-05-08 00:33 | Outpatient (CLI) | payer MEDICAID, SELFPAY ==
--- NOTE | 2019-05-08 11:32 | DI.MAMMO_ITS ---
EXAM: MG MAMMO SCREENING CLINICAL HISTORY: SCREENING Z12.39. TECHNIQUE: Full field digital CC and MLO mammographic images were obtained with 3D tomosynthesis and utilizing computer aided detection (CAD). COMPARISON: . 2010 to 2017. FINDINGS: Breast Density - Category A - Almost entirely fatty Masses/Architectural Distortion: None seen. Microcalcifications: No suspicious pleomorphic-type calcifications are seen. Skin Thickening/Nipple Retraction: None. Axilla: Unremarkable. IMPRESSION: 1. BI-RADS category 1, negative. No significant interval change with no specific features of maligna ncy noted. 2. Unless there is more urgent need, screening mammography is recommended, as per [employer] guidelines. A negative radiographic report should not delay biopsy if a dominant or clinically suspicious mass is present. Up to ten percent of cancers are not identified on mammography. A negative report may reinforce clinical impression. Adenosis and dense breasts may obscure an underlying neoplasm. False positive reports average 6 to 10%. Patient will receive a letter notifying them of these results.
== END 2019-05-08 00:53 ==
PROVIDERS: PCP Family Medicine; Visit Provider Nurse Practitioner Family
DX: Z12.31 Encounter for screening mammogram for malignant neoplasm of breast (principal)
CPT/HCPCS: 77063; 77067

== ENCOUNTER 2019-09-22 18:35 | Outpatient (REF) | payer MEDICAID, SELFPAY ==
[2019-09-22 22:00] LABS: Calculated LDL 135 mg/dL (<100); Cholesterol 235 mg/dL (<200); HDL Cholesterol 43 mg/dL (40-60); Triglyceride 288 mg/dL (<150)
== END 2019-09-22 18:55 ==
LOC: NCHCN 18:35
PROVIDERS: PCP Family Medicine; Visit Provider Nurse Practitioner Family
DX: E78.5 Hyperlipidemia, unspecified (principal)
CPT/HCPCS: 80061

== ENCOUNTER 2019-11-10 17:25 | Emergency (ER) | payer MEDICAID, SELFPAY ==
[2019-11-10 17:28] VITALS: BP 135/89; PULSE 67; RESP 18; TEMP 37.5; O2SAT 98
--- NOTE | 2019-11-10 17:41 | ED.GENADUL_ITS ---
Discharge Plan Disposition Patient Disposition: HOME Condition: Good Discharge Details Chief Complaint: Orthopedic Clinical Impression: Effusion, right knee Primary Care Provider: Aarti Hernández ED Provider: Mandy Crawford Home Meds and New Rx's Prescriptions: Continued multivitamin 1 EACH tablet 1 ea PO DAILY RF: 0 Claritin-D 12 Hour 5-120 mg Tablet Extended Release 12 Hr 1 tab PO Q12H PRNRF: 0 omega 7-rzq-aof-fish oil [Fish Oil] 1,000 mg (120 mg-180 mg) Capsule 1 cap PO DAILY RF: 0 acetaminophen 500 mg tablet 1,000 mg PO Q8H PRN (Reason: pain) Qty: 90 RF: 3 oxybutynin chloride 5 mg tablet extended release 24hr 5 mg PO HS RF: 0 ibuprofen [IBU-200] 200 mg Tablet 400 mg PO Q6H PRNRF: 0 Discharge Instructions Additional Instructions: Your knee was drained today, these labs are pending. At this point, your CRP, 1 of the inflammatory markers, is slightly elevated. please follow-up with Dr. Almanzar as previously scheduled. If you develop fevers/chills, redness, warmth, increased pain or other new/worsening symptoms please seek care urgently once again. Referrals: Aarti Hernández [Primary Care Provider] - Discharge Data Discharge Date/Time-TO BE ENTERED AT DEPARTURE: 11/10/19 19:48 Medical Decision Making Patient is a pleasant 59-year-old female 1 year status post right TKR presents today with chief complaint of right knee swelling. She reports the swelling began approximately 3 weeks ago. Describes insidious onset. She denies any fevers or chills. States the pain is worse with flexion. She has no pain with weightbearing status. Minimal discomfort with ambulation but states that this is worse whenever she is to flex anymore. States she occasionally has tin gling that goes into the foot. Denies any injury, twisting or sudden onset. Describes this more of a progression. Patient states that she had been doing well prior to this. Did have some limited flexion per patient's report but otherwise felt like her knee was improved from prior to surgery. Patient reports that she came in today the advisement of her primary care. She had contacted orthopedics who was able to make an appointment for her in 2 days. The patient then subsequently contact her primary care, they recommended she come to the emergency department. She denies any acute change in her 3 weeks of swelling On exam, patient is resting comfortably. Normal gait watching her coming to the department. Exam of the right lower extremity significant for small effusion. The knee does appear swollen compared to the contralateral criss. She has limited flexion approximately 90 degrees, full extension. No erythema or warmth. The incision appears to have healed well. No calf tenderness, no palpable cord. 2+ distal pulses. Sensation is intact with light touch. No abnormalities noted in the ankle or hip. No pain with axial loading. Incision is healed well with no evidence of infection. History and exam is not consistent with DVT. I am concerned for potential infection although patient does not appear septic and aside from swelling, I do not see any objective findings to suggest infection. Also considered potential minor trauma. Will obtain x-ray of the knee. \ Consulted with Dr. Almanzar who is the patient's surgeon. He advised baseline labs as well as tapping the knee for cell count culture. Patient is already scheduled to see him on Sunday and follow-up. Patient I discussed with/benefits as well as expected procedural steps associated with joint aspiration. She voiced understanding and wished to proceed. Patient reports she has had this completed before. Patient did sign procedural consent. Please see procedure note. Timeout was performed. Knee was approached laterally. Prepped and cleansed with chlorhexidine. Standard sterile technique was utilized. 18-gauge was used. 6 cc of joint fluid was aspirated. At the very end of aspiration, small amount of blood was noted. Ángel wrap will be applied over Band-Aid. Gram stain was sent for culture, Gram stain, cell count. This will be referred. Further by Dr. Almanzar and patient will follow-up on Sunday. She was given strict return precautions. All of her questions and concerns were addressed and she is in agreement with this plan. HPI General Mode of arrival: ambulatory . Date/Time Provider Initiated Documentation: 11/10/19 17:41 . Limitations to Documentation: no limitations . Information obtained by: patient and RN notes reviewed . History of Present Illness 59 year old F presents to the emergency department with the chief complaint of right knee swelling and pain, described as moderate, with intensity rated at 4. Quality is described as aching, and is localized to the right and lower extremity. Patient reports no radiation. Patient started experiencing this week(s) (3) and it has been constant. Immobilization improves symptom(s), Movement worsens symptoms . Patient notes no other symptoms.. Patient did receive the following treatments prior to arrival, none Related Data Home Medications Medication Instructions Recorded Confirmed multivitamin 1 ea PO DAILY 08/10/14 11/10/19 Claritin-D 12 Hour 1 tab PO Q12H PRN 11/08/18 11/10/19 omega 1-eup-tsk-fish oil [Fish Oil] 1 cap PO DAILY 11/08/18 11/10/19 acetaminophen 1,000 mg PO Q8H PRN #90 tab 11/29/18 11/10/19 ibuprofen [IBU-200] 400 mg PO Q6H PRN 11/10/19 11/10/19 oxybutynin chloride 5 mg PO HS 11/10/19 11/10/19 Previous Rx's Medication Instructions Recorded acetaminophen 1,000 mg PO Q8H PRN #90 tab 11/29/18 Allergies Allergy/AdvReac Type Severity Reaction Status Date / Time methylprednisolone Allergy Intermediate Verified 01/10/19 11:17 [From Depo-Medrol] General Stated Complaint: Orthopedic CHRIS: 3 Review of Systems Constitutional Constitutional: Reports as per HPI, Denies chills, Denies fever(s), Denies headache(s) and Denies weakness ENT Ears, Nose, Mouth, and Throat: Denies headache(s) Cardiovascular Cardiovascular: Reports as per HPI Respiratory Respiratory: Reports as per HPI and Denies cough Musculoskeletal Musculoskeletal: Reports as per HPI and Reports tingling (intermittent) Integumentary/Breasts Skin/Breast: Reports as per HPI, Denies rash and Denies wounds Neurologic Neurologic: Reports as per HPI, Denies headache(s), Reports tingling (intermittent), Denies paresthesias and Denies weakness [facility] Medical History (Updated 11/10/19 @ 19:38 by KRYSTA Welch) Aneurysm (Acute) Mother FHx: lung cancer (Acute) mother Seasonal allergies (Acute) Surgical History H/O: hysterectomy (Inactive) History of partial hysterectomy (Acute) 2009 - [facility] [place] History of total right knee replacement (TKR) (Acute 11/28/18) Dr. Yohan Connelly of [facility] (Inactive) Social History Smoking/Tobacco Use Status: Never Alcohol Intake: current Alcohol Intake frequency: holidays/special occasions only Drug use: Never Details: CBD oil Do you feel safe at home: Yes Do you feel safe in your relationship?: Yes Exam Const General: cooperative, healthy appearing, comfortable, no acute distress, well developed and well groomed Nutritional Appearance: average body habitus and well nourished Orientation: alert and awake Resp Effort & Inspection: normal respiratory effort, able to speak in complete sentences and no respiratory distress Cardio Rate: regular rate Rhythm: regular rhythm Skin General skin exam: no rashes or lesions noted and scars (well healed surgical incision) Lesions: no lesions Rashes: no rashes Trauma: no lacerations or abrasions Neuro General: patient alert and patient awake Cognition: normal cognition Speech: speech normal Gait: normal gait Motor: muscle tone normal throughout Sensory Exam: no sensory deficits noted (light touch intact) Extrem General: capillary refill normal, no pedal edema, no calf tenderness, normal gait and no calf tenderness bilaterally Right lower extremity: normal capillary refill, hip/thigh Details: normal to inspection and normal ROM; no tenderness and no swelling, knee Details: tenderness, swelling (small joint effusion) and other (no erythema); inspection abnormal, ROM abnormal (limited by pain, unable to flex past 90), no ecchymosis, no crepitus, no deformity and no unusual warmth, lower leg Details: normal to inspection, no edema and non-pitting edema; no tenderness, no localized swelling, no palpable cords, no ecchymosis, no crepitus, no deformity and no unusual warmth, ankle Details: normal to inspection, no edema and normal ROM; no tenderness and no swelling and foot Details: normal capillary refill, normal to inspection and vascular exam Details: dorsalis pedis pulse present and normal capillary refill; abnormal to inspection and ROM limited Psych Appearance: grossly normal and well kempt Mental Status: mental status grossly normal Speech and Movement: speech and movement normal Course Vital Signs Vital signs: Vital Signs Temperature 37.5 C 11/10/19 17:28 Pulse 67 11/10/19 17:28 Respiratory Rate 18 11/10/19 17:28 Blood Pressure 135/89 11/10/19 17:28 Pulse Oximetry 98 11/10/19 17:28 Temperature 37.5 C 11/10/19 17:28 Temperature Source Temporal Artery Scan 11/10/19 17:28 Pulse 67 11/10/19 17:28 Respiratory Rate 18 11/10/19 17:28 Respiratory Effort Non-Labored 11/10/19 17:33 Blood Pressure 135/89 11/10/19 17:28 Blood Pressure Position Sitting 11/10/19 17:28 Pulse Oximetry 98 11/10/19 17:28 Oxygen Delivery Method Room Air 11/10/19 17:28 Oxygen Flow Rate 0 11/10/19 17:28 Pain Level 4 11/10/19 17:28 Procedures Joint Aspiration/Injection Joint Asp./Inject. 1: Time Out Performed: Yes Side of body: right Joint Aspirated: knee Ultrasound Guidance: No Skin Prep: Chlorhexidene Needle Size Used: 18G Fluid Obtained: clear Total fluid obtained (mL): 6 Patient Tolerated Procedure: well and no complications Complications: none
--- NOTE | 2019-11-10 17:45 | DI.RAD_ITS ---
EXAM: XR KNEE RT 4V AP,LAT,DACIA,PAT CLINICAL HISTORY: swelling 1 yr s/p TKA. TECHNIQUE: 2D digital imaging was performed. COMPARISON: CR XR knee RT 3V AP,lat,dacia from 04/10/2018 CR XR knee RT 1V from 10/07/2018 CR XR knee RT 1V from 12/13/2018 CR XR standing alignment from 12/13/2018 FINDINGS: BONES: No acute fracture is present. No bony destructive lesion is seen. JOINTS: The patient is status post right total knee arthroplasty. No evidence of loosening of the or thopedic hardware is seen. There is a small suprapatellar joint effusion. SOFT TISSUE: Normal. IMPRESSION: 1. Small joint effusion. If there is concern for an infection, joint aspiration may be considered. Alternatively, a three-phase bone scan or nuclear medicine white blood cell study can be considered f or further evaluation. 2. Right total knee arthroplasty without evidence of hardware loosening. DATA REPOSITORY: RADIATION DOSE DELIVERED:
--- NOTE | 2019-11-10 18:39 | DI.VRAD_ITS ---
PROCEDURE INFORMATION: Exam: XR Right Knee Exam date and time: 11/10/2019 6:14 PM Age: 59 years old Clinical indication: Other: Swelling 1yr S/P tka TECHNIQUE: Imaging protocol: XR Right knee. Views: 4 or more views. COMPARISON: No relevant prior studies available. FINDINGS: Bones/joints: Please note that the images are of the right knee. The order in the system is for left knee images, however correlation with previous exams suggest the appropriate knee was imaged and that this was the right knee. I therefore changed the order to right knee. Total knee arthroplasty noted. No evidence of hardware breakage, displacement, or loosening. Suspect small knee joint effusion with slight distention of the suprapatellar bursa. There is mild periarticular osteopenia, with no evidence of bony resorption at the bone cement interface in either the femur or tibia. This is nonspecific in nature but could be seen due to local hyperemia related to repetitive stress, chronic noninfectious inflammatory arthropathy or possibly an early or indolent infectious process. Consider joint aspiration if there is strong clinical concern for infection. Otherwise, three-phase bone scan or nuclear medicine tagged white cell study may be helpful in further characterization. No fractures. No blastic or lytic lesions. Soft tissues: Soft tissues are unremarkable. IMPRESSION: 1. Mild periarticular osteopenia in the distal femur and proximal tibia which is nonspecific in nature, please see differential considerations detailed. 2. Small knee joint effusion. 3. Right knee arthroplasty with no evidence of hardware loosening or displacement. Dictated and Authenticated by: Terrence Spangler MD. Ordering:JOVANA Galvan MD
[2019-11-10 19:00] LABS: Abs Immature Grans 0.02 k/cumm (0.0-0.09); Absolute Basophil Count 0.04 k/cumm (0.0-0.2); Absolute Eosinophil Count 0.57 k/cumm (0.0-0.7); Absolute Neutrophil Count 5.44 k/cumm (1.2-6.7); Basophils % 0.4; Eosinophils % 5.9; HCT 42.3 % (36.0-46.0); HGB 14.3 g/dL (12.0-15.5); Immature Grans % 0.2 %; Lymphocytes % 32.1; Mean Corp. HGB Concentration 33.8 g/dL (32.0-36.0); Mean Corpuscular Hemoglobin 27.4 pg (27.0-33.0); Mean Corpuscular Volume 81.2 fL (80-95); Mean Platelet Volume 8.8 fL (8.0-11.0); Monocytes % 5.2; Neutrophils % 56.2; Platelet Count 310 x1000/uL (130-400); RBC 5.21 m/cumm (4.00-5.20); RBC Distribution Width 14.2 % (11.7-14.6); White Blood Cell Count 9.67 k/cumm (4.4-10.8)
[2019-11-10 19:25] VITALS: BP 147/83; PULSE 62; RESP 14; TEMP 36.3; O2SAT 99
[2019-11-10 19:27] VITALS: BP 147/83; PULSE 62; RESP 14; TEMP 36.3; O2SAT 99
[2019-11-10 19:28] LABS: ALT 26 U/L (14-59); AST 20 U/L (15-37); Alkaline Phosphatase 87 U/L (46-116); BUN 22 mg/dL (7-18); Bilirubin, Total 0.6 mg/dL (0.2-1.0); C-Reactive Protein 0.72 mg/dL (0.0-0.3); CREATININE 0.92 mg/dL (0.55-1.02); Calcium 9.1 mg/dL (8.5-10.1); Chloride 101 mmol/L (98-107); Glucose 90 mg/dL (74-106); Potassium 3.9 mmol/L (3.5-5.1); Sodium 138 mmol/L (136-145); Total Protein 7.7 g/dL (6.4-8.2)
[2019-11-10 19:39] LABS: ESR 35 mm/hr (0-30)
[2019-11-10 20:10] LABS: Clarity Cloudy; Source R KNEE
[2019-11-10 20:11] LABS: Mononuclear Cells 91 % (0-0); Nucleated Cells 633 /MM3 (0-0); Other Cells 0 0 (0-0); Polynuclear Cells 9 % (0-0)
[2019-11-10 21:23] LABS: Crystals (BF) No Crystals seen
== END 2019-11-10 19:48 | disposition home or self-care (01) ==
PROVIDERS: Emergency Provider Physician Assistant; PCP Family Medicine
DX: M25.461 Effusion, right knee (principal); R79.89 Other specified abnormal findings of blood chemistry; Z96.651 Presence of right artificial knee joint
CPT/HCPCS: 20610; 36415; 80053; 85652; 87077; 99283; 73564; 85025; 86140; 87070; 87186; 87205; 89051; 89060

== ENCOUNTER 2019-11-11 09:01 | Outpatient (CLI) | payer MEDICAID, SELFPAY ==
--- NOTE | 2019-11-11 10:30 | DI.US_ITS ---
EXAM: US LOWER EXTREMITY VENOUS RT CLINICAL HISTORY: Right leg swelling, M79.89, ? DVT TECHNIQUE: Right lower extremity venous ultrasound performed using grayscale, color-flow, and spectr al Doppler analysis. COMPARISON: No exams were available for comparison FINDINGS: The right common femoral, femoral and popliteal veins demonstrate normal compressibility, augmentatio n, and color Doppler. The posterior tibial veins are patent. The saphenofemoral junction is unremark able. There is no evidence of a Post cyst. The soft tissues are unremarkable. IMPRESSION: No DVT. DATA REPOSITORY:
== END 2019-11-11 09:21 ==
PROVIDERS: PCP Family Medicine; Visit Provider Student in an Organized Health Care Education/Training Program
DX: M79.89 Other specified soft tissue disorders (principal)
CPT/HCPCS: 93971

== ENCOUNTER 2019-11-12 16:27 | Outpatient (REF) | payer MEDICAID, SELFPAY ==
[2019-11-12 17:36] LABS: Clarity Cloudy; Source R KNEE
[2019-11-12 17:37] LABS: Nucleated Cells 373 /MM3 (0-0)
[2019-11-12 18:26] LABS: Mononuclear Cells 98 % (0-0); Polynuclear Cells 2 % (0-0)
== END 2019-11-12 16:47 ==
LOC: LBN 16:27
PROVIDERS: PCP Family Medicine; Visit Provider Physician Assistant Surgical
DX: Z96.651 Presence of right artificial knee joint (principal); M25.461 Effusion, right knee
CPT/HCPCS: 87070; 87205; 89051; 89060

== ENCOUNTER 2021-11-27 22:42 | Emergency (ER) | payer MEDICAID, SELFPAY ==
--- NOTE | 2021-11-27 22:30 | RT.EKG_ITS ---
APPROVED REPORT Exam: Resting ECG Reason for Exam: intox dizzy Patient Location: E HR:89 bpm ECG Measurements Heart Rate 89 AXIS AZ 167 P 48 QRSd 90 QRS -25 QT 372 T 66 QTc 452 Conclusion Sinus rhythm...normal P axis, V-rate 60- 99 Low voltage, precordial leads...precordial leads <1.0mV. Sinus. No STEMI. I have reviewed and interpreted ECG and agree with software generated interpretation.
[2021-11-27 23:01] VITALS: BP 112/74; PULSE 100; RESP 23; TEMP 36.6; O2SAT 97
--- NOTE | 2021-11-27 23:10 | ED.GENADUL_ITS ---
Discharge Plan Disposition Patient Disposition: HOME Condition: Improving Discharge Details Clinical Impression: Accidental marijuana overdose Primary Care Provider: Aarti Hernández ED Provider: Vinita Justice Home Meds and New Rx's Prescriptions: Continued multivitamin 1 EACH tablet 1 ea PO DAILY Claritin-D 12 Hour 5-120 mg Tablet Extended Release 12 Hr 1 tab PO Q12H PRN omega 5-tep-myh-fish oil [Fish Oil] 1,000 mg (120 mg-180 mg) Capsule 1 cap PO DAILY acetaminophen 500 mg tablet 1,000 mg PO Q8H PRN (Reason: pain) Qty: 90 3RF oxybutynin chloride 5 mg tablet extended release 24hr 5 mg PO HS Label Comments: TK 1 T PO D ibuprofen [IBU-200] 200 mg Tablet 400 mg PO Q6H PRN Discharge Instructions Instructions: Medicinal Use of Cannabis (ED) Additional Instructions: Your lab work and EKG today is reassuring and shows no evidence of acute concerning or significant findings. It is suspected that your symptoms were secondary to the effects of the THC gummy you ingested. Drink plenty of fluids and get plenty of rest. Follow-up with your primary care doctor in 1 week. Return to the emergency department with any worsening or new concerning symptoms. Discharge Data Discharge Physician: Vinita Justice Medical Decision Making 8200 -- 61-year-old female with no specific past medical history presents for restless legs, altered mental status and slurred speech after taking 1-3 THC gummies (50-150mg THC)1 hour prior to arrival. Vitals within normal limits. Patient appears restless and able to answer some questions but moaning and speaking gibberish. She has no obvious focal deficits or trauma. History and presentation does not appear consistent with ACS and low suspicion for CVA as she reportedly had been feeling fine prior to taking a gummy. Will obtain screening labs and give a dose of Ativan and IV fluids and reassess. 0030 --patient now more relaxed. O2 sat low 90s. states she may have sleep apnea. Will place on 1L NC and continue to monitor post THC ingestion and ativan IV. Labs reviewed and unremarkable. UDS positive for THC. 0340 --patient now awake and alert and was able to ambulate and drink fluids. She states she took 1 THC gummy. She states she has never taken this before. She states she took it for her intermittent chronic back pain. She states she was a CBD gummy. She currently denies any back or leg pain. She feels comfortable going home. Advised to increase fluids and rest. Advised to follow up with the primary care doctor for re-evaluation. Usual and customary return precautions given prior to discharge. Medical Records Medical records reviewed: Yes I reviewed the patient's medical records. Lab Data Lab results reviewed: Yes I reviewed the patient's lab results. Labs: Laboratory Tests Range/Units 11/27/21 11/27/21 11/28/21 23:15 23:15 00:26 WBC (4.4-10.8) 10^3/uL 8.37 RBC (3.93-5.22) 10^6/uL 4.48 Hgb (11.2-15.7) g/dL 12.4 Hct (36.0-46.0) % 37.2 MCV (80-95) fL 83 MCH (27.0-33.0) pg 27.7 MCHC (32.0-36.0) % 33.3 RDW (11.7-14.6) % 13.3 Plt Count (130-400) 10^3/uL 242 MPV (8.0-11.0) fL 9.0 Immature Gran % 0.1 Neutrophils % 66.8 Lymphocytes % 21.3 Monocytes % 5.4 Eosinophils % 5.9 Basophils % 0.5 Nucleated RBC % (0.0-0.3) % 0.0 Absolute Neutrophils (1.2-6.7) 10^3/uL 5.60 Absolute Lymphocytes (1.2-3.4) 10^3/uL 1.78 Absolute Monocytes (0.1-0.8) 10^3/uL 0.45 Absolute Eosinophils (0.0-0.7) 10^3/uL 0.49 Absolute Basophils (0.0-0.2) 10^3/uL 0.04 Sodium (136-145) mmol/L 137 Potassium (3.5-5.1) mmol/L 5.1 Chloride (98-107) mmol/L 100 Carbon Dioxide (21.0-32.0) mmol/L 29.9 Anion Gap (3-11) mmol/L 7.1 BUN (7-18) mg/dL 21 H Creatinine (0.55-1.02) mg/dL 1.0 Estimated GFR/1.73 m2 (mL/min/1.73m2) 56.56 Glucose (74-106) mg/dL 151 H Calcium (8.5-10.1) mg/dL 8.7 Magnesium (1.8-2.4) mg/dL 2.2 Total Bilirubin (0.2-1.0) mg/dL 0.9 AST (15-37) U/L 39 H ALT (14-59) U/L 32 Alkaline Phosphatase (46-116) U/L 82 Troponin I (<or=60) ng/L < 50 Total Protein (6.4-8.2) g/dL 7.6 Albumin (3.4-5.0) g/dL 3.6 Urine Color (Yellow) Urine Clarity (Clear) Urine pH (5-8) Ur Specific Castell (1.005-1.025) Urine Protein (Negative) mg/dL Urine Ketones (Negative) mg/dL Urine Blood (Negative) Urine Nitrite (Negative) Urine Bilirubin (Negative) Urine Urobilinogen (Up TO 0.2) EU/dL Ur Leukocyte Esterase (Negative) Urine RBC (0-2) HPF Urine WBC (0-5) HPF Ur Epithelial Cells (Negative) HPF Urine Crystals (Negative) HPF Urine Bacteria (Negative) HPF Urine Casts (Negative) LPF Urine Mucus (Negative) Ur Culture Indicated? Urine Glucose (Negative) mg/dL Urine Opiates Screen (Negative) Negative Urine Methadone Screen (Negative) Negative Ur Barbiturates Screen (Negative) Negative Ur Tricyclics Screen (Negative) Negative Ur Amphetamines Screen (Negative) Negative U Benzodiazepines Scrn (Negative) Negative Urine Cocaine Screen (Negative) Negative Ur THC Screen (Negative) Positive A Ethyl Alcohol (<10) mg/dL < 3.0 Range/Units 11/28/21 00:26 WBC (4.4-10.8) 10^3/uL RBC (3.93-5.22) 10^6/uL Hgb (11.2-15.7) g/dL Hct (36.0-46.0) % MCV (80-95) fL MCH (27.0-33.0) pg MCHC (32.0-36.0) % RDW (11.7-14.6) % Plt Count (130-400) 10^3/uL MPV (8.0-11.0) fL Immature Gran % Neutrophils % Lymphocytes % Monocytes % Eosinophils % Basophils % Nucleated RBC % (0.0-0.3) % Absolute Neutrophils (1.2-6.7) 10^3/uL Absolute Lymphocytes (1.2-3.4) 10^3/uL Absolute Monocytes (0.1-0.8) 10^3/uL Absolute Eosinophils (0.0-0.7) 10^3/uL Absolute Basophils (0.0-0.2) 10^3/uL Sodium (136-145) mmol/L Potassium (3.5-5.1) mmol/L Chloride (98-107) mmol/L Carbon Dioxide (21.0-32.0) mmol/L Anion Gap (3-11) mmol/L BUN (7-18) mg/dL Creatinine (0.55-1.02) mg/dL Estimated GFR/1.73 m2 (mL/min/1.73m2) Glucose (74-106) mg/dL Calcium (8.5-10.1) mg/dL Magnesium (1.8-2.4) mg/dL Total Bilirubin (0.2-1.0) mg/dL AST (15-37) U/L ALT (14-59) U/L Alkaline Phosphatase (46-116) U/L Troponin I (<or=60) ng/L Total Protein (6.4-8.2) g/dL Albumin (3.4-5.0) g/dL Urine Color (Yellow) Yellow Urine Clarity (Clear) Clear Urine pH (5-8) 5.5 Ur Specific Castell (1.005-1.025) 1.025 Urine Protein (Negative) mg/dL 30 H Urine Ketones (Negative) mg/dL Negative Urine Blood (Negative) Trace-intact H Urine Nitrite (Negative) Negative Urine Bilirubin (Negative) Negative Urine Urobilinogen (Up TO 0.2) EU/dL 0.2 Ur Leukocyte Esterase (Negative) Negative Urine RBC (0-2) HPF 0-2 Urine WBC (0-5) HPF 0-2 Ur Epithelial Cells (Negative) HPF Few Urine Crystals (Negative) HPF Negative Urine Bacteria (Negative) HPF Few Urine Casts (Negative) LPF 0-2 Hyaline Urine Mucus (Negative) Moderate Ur Culture Indicated? No Urine Glucose (Negative) mg/dL Negative Urine Opiates Screen (Negative) Urine Methadone Screen (Negative) Ur Barbiturates Screen (Negative) Ur Tricyclics Screen (Negative) Ur Amphetamines Screen (Negative) U Benzodiazepines Scrn (Negative) Urine Cocaine Screen (Negative) Ur THC Screen (Negative) Ethyl Alcohol (<10) mg/dL ECG Data Attestation: I personally reviewed and interpreted this ECG (s) as follows: Interpretation: rate of 89, sinus, no stemi. HPI General Mode of arrival: ambulatory . Date/Time Provider Initiated Documentation: 11/27/21 23:05 . Limitations to Documentation: no limitations . Information obtained by: patient . HPI Narrative: Patient is a 61yo female presents after found by to be having restless legs and slurred speech 1 hour after reportedly taking tea she needs. reports that patient may have taken 1-3 Gummies in a box a total of 10 gummies. The box is a total of 500mg of THC so patient may have taken 50 to 150mg of THC. Patient unable to provide history as she is restless and moaning. reports patient has no specific medical history but had complained of GI upset for the past week. He states she has been acting her normal self today. denies any known alcohol or other drug use. He denies any recent trauma. Related Data Home Medications Medication Instructions Recorded Confirmed multivitamin 1 ea PO DAILY 08/10/14 11/12/19 loratadine 5 mg-pseudoephedrine ER 1 tab PO Q12H PRN 11/08/18 11/12/19 120 mg tablet,extended release,12hr (Claritin-D 12 Hour) omega 0-fde-xib-fish oil 1,000 mg 1 cap PO DAILY 11/08/18 11/12/19 (120 mg-180 mg) capsule (Fish Oil) acetaminophen 500 mg tablet 1,000 mg PO Q8H PRN pain #90 tabs 11/29/18 11/12/19 ibuprofen 200 mg tablet (IBU-200) 400 mg PO Q6H PRN 11/10/19 11/12/19 oxybutynin chloride 5 mg 5 mg PO HS 11/10/19 11/12/19 tablet,extended release 24 hr Previous Rx's Medication Instructions Recorded acetaminophen 500 mg tablet 1,000 mg PO Q8H PRN pain #90 tabs 11/29/18 Allergies Allergy/AdvReac Type Severity Reaction Status Date / Time methylprednisolone Allergy Intermediate Verified 11/12/19 13:37 [From Depo-Medrol] General Stated Complaint: OD/Poison CHRIS: 2 Review of Systems All systems reviewed & are unremarkable except as noted in HPI and below Constitutional Constitutional: Denies chills, Denies excessive sweating, Denies fatigue, Denies fever(s), Denies weakness and Denies weight loss Eyes Eyes: Reports system reviewed and no additional complaints, except as documented and Denies blurry vision ENT Ears, Nose, Mouth, and Throat: Denies vertigo, Denies dizziness, Denies otalgia, Denies nasal congestion, Denies sore throat and Denies throat swelling Cardiovascular Cardiovascular: Denies chest pain, Denies syncope, Denies rapid heart rate and Denies dyspnea Respiratory Respiratory: Denies chest congestion, Denies cough, Denies pain on inspiration and Denies dyspnea Gastrointestinal Gastrointestinal: Denies abdominal pain, Denies diarrhea and Denies vomiting Genitourinary Genitourinary: Denies hematuria, Denies dysuria and Denies flank pain Musculoskeletal Musculoskeletal: Denies back pain and Denies joint swelling Integumentary/Breasts Skin/Breast: Denies lesions and Denies rash Neurologic Neurologic: Denies behavioral changes, Denies confusion, Denies vertigo, Denies dizziness, Denies syncope, Denies localized weakness and Denies weakness Psychiatric Psychiatric: Denies behavioral changes, Denies confusion and Denies depression Endocrine Endocrine: Denies excessive sweating and Denies fatigue Hematologic/Lymphatic Hematologic/Lymphatic: Denies easy bruising and Denies lymphadenopathy Allergic/Immunologic Allergic/Immunologic: Denies throat swelling PFSH All Active Problems (Updated 11/28/21 @ 03:46 by Vinita Justice DO) Accidental marijuana overdose (Acute) History of total right knee replacement (TKR) (Acute 11/28/18) Dr. Almanzar Colon cancer screening (Acute) Periorbital cellulitis of left eye (Acute) Seasonal allergies (Acute) Medical History (Updated 11/28/21 @ 03:46 by Vinita Justice DO) Aneurysm Mother FHx: lung cancer mother Surgical History H/O: hysterectomy History of partial hysterectomy 2009 - [facility] [place] Hx of LASIK Family History Other Aneurysm FHx: lung cancer Social History Smoking/Tobacco Use Status: Never Smoking risk assessment performed?: Yes Alcohol Intake: current Alcohol Intake frequency: holidays/special occasions only Drug use: Rarely Substance use type: marijuana Details: CBD oil, THC GUMMIES Do you feel safe at home: Yes Do you feel safe in your relationship?: Yes Exam Const General: cooperative Orientation: confused HENMT Head: normal to inspection Ears: hearing grossly normal bilaterally and external ears normal General nose exam: external nose normal Face and sinus: normal facial exam Mouth: oral mucosae normal Teeth and gingiva: dentition normal Throat: posterior oropharynx normal Eyes General: appearance normal, both eyes and all related structures Eyelids: eyelids normal Pupils: PERRL EOM: EOM intact bilaterally Neck Neck: normal visual inspection Lymphatic: no lymphadenopathy noted Chest Chest: normal inspection of the chest Resp Effort & Inspection: normal respiratory effort and able to speak in complete sentences Auscultation: clear to auscultation bilaterally Cardio Rate: regular rate Rhythm: regular rhythm GI Inspection: normal to inspection Palpation: soft, not firm, no guarding, no hepatosplenomegaly, no masses and nontender Auscultation: normal bowel sounds Back/Spine/Pelvis Thoracic/Lumbar Spine: thoracic and lumbar spine normal to inspection Skin General skin exam: no rashes or lesions noted Neuro General: patient alert, patient awake and patient oriented x3 Cognition: normal cognition Speech: speech normal Gait: normal gait Motor: muscle tone normal throughout Sensory Exam: no sensory deficits noted Extrem General: normal to inspection, full ROM and capillary refill normal Psych Appearance: grossly normal Mental Status: mental status grossly normal Speech and Movement: speech and movement normal Affect: normal affect Thought Process: normal Course Vital Signs Vital signs: Vital Signs Temperature 97.9 F 11/27/21 23:01 Pulse 100 H 11/27/21 23:01 Respiratory Rate 23 11/27/21 23:01 Blood Pressure 112/74 11/27/21 23:01 Pulse Oximetry 97 11/27/21 23:01 Temperature 97.9 F 11/27/21 23:01 Temperature Source Temporal Artery Scan 11/27/21 23:01 Pulse 100 H 11/27/21 23:01 Respiratory Rate 23 11/27/21 23:01 Blood Pressure 112/74 11/27/21 23:01 Blood Pressure Position Supine 11/27/21 23:01 Pulse Oximetry 97 11/27/21 23:01 Oxygen Delivery Method Nasal Cannula 11/27/21 23:01 Oxygen Flow Rate 2 11/27/21 23:01
[2021-11-27 23:49] LABS: Abs Immature Grans 0.01 10^3/uL (0.0-0.06); Absolute Basophil Count 0.04 10^3/uL (0.0-0.2); Absolute Eosinophil Count 0.49 10^3/uL (0.0-0.7); Absolute Lymphocyte Count 1.78 10^3/uL (1.2-3.4); Absolute Monocyte Count 0.45 10^3/uL (0.1-0.8); Basophils % 0.5; Eosinophils % 5.9; HCT 37.2 % (36.0-46.0); HGB 12.4 g/dL (11.2-15.7); Immature Grans % 0.1; Lymphocytes % 21.3; MCH 27.7 pg (27.0-33.0); MCHC 33.3 % (32.0-36.0); MCV 83 fL (80-95); Monocytes % 5.4; Neutrophils % 66.8; Platelet Count 242 10^3/uL (130-400); RBC 4.48 10^6/uL (3.93-5.22); RDW 13.3 % (11.7-14.6); WBC 8.37 10^3/uL (4.4-10.8)
[2021-11-27] MEDS: Normal Saline 1,000 ML 1000 ML IV (23:53)
[2021-11-27] MEDS: LORazepam 20 MG/10 ML VIAL IVP (23:54)
[2021-11-28 00:04] LABS: ALT 32 U/L (14-59); AST 39 U/L (15-37); Albumin 3.6 g/dL (3.4-5.0); Alkaline Phosphatase 82 U/L (46-116); Anion Gap 7.1 mmol/L (3-11); BUN 21 mg/dL (7-18); Bilirubin, Total 0.9 mg/dL (0.2-1.0); CO2 29.9 mmol/L (21.0-32.0); Calcium 8.7 mg/dL (8.5-10.1); Chloride 100 mmol/L (98-107); Estimated GFR 56.56 (mL/min/1.73m2); Glucose 151 mg/dL (74-106); Magnesium 2.2 mg/dL (1.8-2.4); Potassium 5.1 mmol/L (3.5-5.1); Sodium 137 mmol/L (136-145); Total Protein 7.6 g/dL (6.4-8.2); Troponin I < 50 ng/L (<or=60)
[2021-11-28 00:07] LABS: ETHANOL BLOOD < 3.0 mg/dL (<10)
[2021-11-28 00:40] LABS: Bilirubin Negative (Negative); Blood Trace-intact (Negative); Clarity Clear (Clear); Glucose Negative (Negative); Ketones Negative (Negative); Leukocyte Esterase Negative (Negative); Nitrite Negative (Negative); Specific Gravity 1.025 (1.005-1.025); Urobilinogen 0.2 EU/dL (Up TO 0.2); pH 5.5 (5-8)
[2021-11-28 00:49] LABS: Bacteria Few HPF (Negative); C & S Indicated? No; Casts 0-2 Hyaline LPF (Negative); Crystals Negative HPF (Negative); Epithelial Cells Few HPF (Negative); Mucus Moderate (Negative); RBC 0-2 HPF (0-2); WBC 0-2 HPF (0-5)
[2021-11-28 00:52] LABS: *AMPHETAMINES SCREEN URINE Negative (Negative); *BARBITURATES SCREEN URINE Negative (Negative); *BENZODIAZEPINES SCREEN URINE Negative (Negative); Cannabinoids THC Positive (Negative); Cocaine Screen,Urine Negative (Negative); METHADONE URINE SCREEN Negative (Negative); OPIATES URINE SCREEN Negative (Negative); Tricyclic Antidepressants Negative (Negative)
[2021-11-28 01:04] VITALS: RESP 22
--- NOTE | 2021-11-28 01:20 | NUR.NOTE ---
PATIENT ROUSES TO VOICE BUT STILL VERY GROGGY. WILL CONTINUE TO MONITOR. Nursing Note:
== END 2021-11-28 04:21 | disposition home or self-care (01) ==
PROVIDERS: Emergency Provider Physician Assistant; PCP Family Medicine
DX: T40.711A Poisoning by cannabis, accidental (unintentional), initial encounter (principal); R41.0 Disorientation, unspecified
CPT/HCPCS: 36415; 80053; 80307; 93005; 96361; 96374; 99284; 80320; 81003; 81015; 83735; 84484; 85025; 93010; J3490

== ENCOUNTER 2022-03-09 03:29 | Outpatient (CLI) | payer MEDICAID, SELFPAY ==
[2022-03-09 12:28] LABS: Bilirubin Negative (Negative); Blood Negative (Negative); Clarity Clear (Clear); Glucose Negative (Negative); Ketones Negative (Negative); Leukocyte Esterase Negative (Negative); Nitrite Negative (Negative); Urobilinogen 0.2 EU/dL (Up TO 0.2); pH 7.5 (5-8)
[2022-03-09 12:30] LABS: Abs Immature Grans 0.02 10^3/uL (0.0-0.06); Absolute Basophil Count 0.07 10^3/uL (0.0-0.2); Absolute Eosinophil Count 0.45 10^3/uL (0.0-0.7); Absolute Lymphocyte Count 1.92 10^3/uL (1.2-3.4); Absolute Monocyte Count 0.37 10^3/uL (0.1-0.8); Absolute Neutrophil Count 4.88 10^3/uL (1.2-6.7); Basophils % 0.9; Eosinophils % 5.8; HGB 14.2 g/dL (11.2-15.7); Immature Grans % 0.3; Lymphocytes % 24.9; MCH 27.8 pg (27.0-33.0); MCV 84 fL (80-95); Monocytes % 4.8; Neutrophils % 63.3; Platelet Count 335 10^3/uL (130-400); RBC 5.11 10^6/uL (3.93-5.22); RDW 13.3 % (11.7-14.6); RDW-SD 41.4 fL; WBC 7.71 10^3/uL (4.4-10.8)
[2022-03-09 13:13] LABS: ALT 30 U/L (14-59); AST 21 U/L (15-37); Albumin 4.3 g/dL (3.4-5.0); Alkaline Phosphatase 108 U/L (46-116); Anion Gap 9.3 mmol/L (3-11); BUN 18 mg/dL (7-18); Bilirubin, Total 0.8 mg/dL (0.2-1.0); CO2 29.7 mmol/L (21.0-32.0); CREATININE 0.9 mg/dL (0.55-1.02); Calcium 9.4 mg/dL (8.5-10.1); Chloride 102 mmol/L (98-107); Estimated GFR 73.19 (mL/min/1.73m2); FREE T4 0.84 ng/dL (0.76-1.46); Glucose 88 mg/dL (74-106); Potassium 3.8 mmol/L (3.5-5.1); Sodium 141 mmol/L (136-145); TSH 1.42 uIU/mL (0.36-3.74)
[2022-03-09 13:27] LABS: Calculated LDL 169 mg/dL (<100); Cholesterol 245 mg/dL (<200); HDL Cholesterol 56 mg/dL (40-60); Triglyceride 102 mg/dL (<150)
[2022-03-09 22:44] LABS: T3,Free 3.9 pg/mL (2.8-5.3)
[2022-03-09 23:30] LABS: Estradiol 13 pg/mL (See Note)
[2022-03-15 12:13] LABS: Testosterone, Total 14 ng/dL (8-60)
== END 2022-03-09 03:30 | disposition home or self-care (01) ==
LOC: LOS 03:29
PROVIDERS: PCP Family Medicine; Visit Provider Naturopath
DX: E07.9 Disorder of thyroid, unspecified (principal); N95.1 Menopausal and female climacteric states; M25.561 Pain in right knee; G47.01 Insomnia due to medical condition; M54.31 Sciatica, right side; J30.89 Other allergic rhinitis; Z13.220 Encounter for screening for lipoid disorders
CPT/HCPCS: 36415; 80053; 80061; 84403; 81003; 82670; 84439; 84443; 84481; 85025

== ENCOUNTER → 2022-03-28 02:11 | Outpatient (CLI) | payer MEDICAID, SELFPAY ==
--- NOTE | 2022-03-28 08:00 | DI.MAMMO_ITS ---
Exam(s) MAMMO SCREENING EXAM: MAMMO SCREENING CLINICAL HISTORY: SCREENING, Z12.31 TECHNIQUE: Bilateral full field digital CC and MLO mammographic images were obtained with 3D tomosyn thesis and utilizing computer aided detection (CAD). COMPARISON: Available for comparison. FINDINGS: Masses/Architectural Distortion: None seen. Microcalcifications: No suspicious pleomorphic-type are seen. Skin Thickening/Nipple Retraction: None. IMPRESSION: 1. No significant interval change with no specific features of malignancy noted. 2. Unless there is more urgent need, screening mammography is recommended, as per [employer] guidelines. BI-RADS Category 1 - Negative Breast Density - Category A - Almost entirely fatty Breast density category C or D implies that the patient has dense breast tissue. Dense breast tissue is very common and is not abnormal but dense breast tissue can make it harder to find cancer on a ma mmogram. Also, dense breast tissue may increase their breast cancer risk. This information about the result of the mammogram report was provided to the patient to raise their awareness. Use this report when you speak with the patient about their risks for breast cancer, which includes their family hist ory. At that time, you may recommend for more screening tests (Ultrasound or MRI) as they might be us eful based on their risk. A negative radiographic report should not delay biopsy if a dominant or clinically suspicious mass is present. Up to ten percent of cancers are not identified on mammography. A negative report may reinforce clinical impression. Adenosis and dense breasts may obscure an underlying neoplasm. False positive reports average 6 to 10%. Patient will receive a letter notifying them of these results.
== END ==
PROVIDERS: PCP Family Medicine; Visit Provider Naturopath
DX: Z12.31 Encounter for screening mammogram for malignant neoplasm of breast (principal)
CPT/HCPCS: 77063; 77067

== ENCOUNTER 2022-07-21 11:09 | Outpatient (CLI) | payer MEDICAID, SELFPAY ==
--- NOTE | 2022-07-21 10:45 | DI.RAD_ITS ---
Exam(s) XR KNEE RT 3V AP,LAT,DACIA EXAM: XR KNEE RT 3V AP,LAT,DACIA CLINICAL HISTORY: R TKR stiffness. TECHNIQUE: 2D digital imaging was performed. Three views. COMPARISON: CR,XR XR KNEE RT 4V AP,LAT,DACIA,PAT from 11/10/2019 FINDINGS: There has been no change in the alignment the total knee prosthesis. No suspicious bony lucencies ar e seen. There may be a small joint effusion. IMPRESSION: Stable appearance of right knee prosthesis. DATA REPOSITORY: RADIATION DOSE DELIVERED:
== END 2022-07-21 11:10 | disposition home or self-care (01) ==
LOC: DIORS 11:09
PROVIDERS: PCP Naturopath; Referring Provider Naturopath; Visit Provider Physician Assistant
DX: Z96.651 Presence of right artificial knee joint (principal); M25.661 Stiffness of right knee, not elsewhere classified
CPT/HCPCS: 73562

== ENCOUNTER 2022-08-22 11:50 | Day surgery (SDC) | payer MEDICAID, SELFPAY ==
[2022-08-22] VITALS (8 sets, daily range): BP systolic 122–143; BP diastolic 70–86; PULSE 52–81; RESP 14–18; TEMP 36–36.5; O2SAT 94–99; BMI 31.6
[2022-08-22] MEDS: Lactated Ringers 1,000 ML 80 ML IV (12:40)
[2022-08-22] MEDS: Acetaminophen 500 MG TAB 1000 MG PO (12:52)
[2022-08-22] MEDS: Celecoxib 200 MG CAP 400 MG PO (12:53)
[2022-08-22] MEDS: Gabapentin 300 MG CAP PO (12:53)
--- NOTE | 2022-08-22 13:18 | ANES.PREOP_ITS ---
General Info Date of Service Date Performed: 08/22/22 Height: 5 ft 2 in Weight: 78.4 kg Body Mass Index (BMI): 31.6 Surgical Procedure: Operation Date: 08/22/22 14:25 Proposed Procedure Side Surgeon p Knee Arthroscopy, Synovectomy, ? Manipulation Right Aldair Almanzar MD Meds Allergies and Home Medications Allergies Allergy/AdvReac Type Severity Reaction Status Date / Time methylprednisolone Allergy Intermediate Verified 08/21/22 12:04 [From Depo-Medrol] Home Medication Medication Instructions Recorded multivitamin 1 ea PO DAILY 08/10/14 loratadine 5 mg-pseudoephedrine ER 1 tab PO Q12H PRN 11/08/18 120 mg tablet,extended release,12hr (Claritin-D 12 Hour) omega 1-hvv-gbn-fish oil 1,000 mg 1 cap PO DAILY 11/08/18 (120 mg-180 mg) capsule (Fish Oil) acetaminophen 500 mg tablet 1,000 mg PO Q8H PRN pain #90 tabs 11/29/18 ibuprofen 200 mg tablet (IBU-200) 400 mg PO Q6H PRN 11/10/19 Current Visit Medications: Current Medications Generic Name Dose Route Start Last Admin Trade Name Freq PRN Reason Stop Dose Admin Acetaminophen 1,000 mg 08/22/22 06:00 08/22/22 12:52 Acetaminophen 500 Mg Tab PO 08/22/22 16:00 1,000 mg PREOP VARSHA Administration Celecoxib 400 mg 08/22/22 06:00 08/22/22 12:53 Celecoxib 200 Mg Cap PO 08/22/22 16:00 400 mg PREOP VARSHA Administration Gabapentin 300 mg 08/22/22 06:00 08/22/22 12:53 Gabapentin 300 Mg Cap PO 08/22/22 16:00 300 mg PREOP VARSHA Administration Ringer's Solution 1,000 mls @ 80 mls/hr 08/22/22 06:00 08/22/22 12:40 IV 09/20/22 23:59 80 mls/hr INFUSION VARSHA Administration Cefazolin Sodium/Dextrose 2 gm in 50 mls @ 100 mls/hr 08/22/22 06:00 Ancef Duplex IVPB 08/22/22 16:00 PREOP VARSHA IV Miscellaneous Supplies 1 each 08/22/22 06:00 Iv Access IV 09/20/22 23:59 DIRECTED VARSHA Sodium Chloride 0 ml 08/22/22 06:00 Normal Saline Flush 10 Ml Syr IV 09/20/22 23:59 PRN PRN Sodium Chloride 0 ml 08/22/22 06:00 Normal Saline 10 Ml Vial IJ 09/20/22 23:59 DIRECTED PRN Sterile Water 0 ml 08/22/22 06:00 Water,Injection,Sterile 10 Ml Vial IJ 09/20/22 23:59 DIRECTED PRN PFSH Active Problems Active Problems: Problem Status Onset Code Arthrofibrosis of total knee replacement T84.82XA History of total right knee replacement (TKR) 11/28/18 Z96.651 Colon cancer screening Z12.11 Periorbital cellulitis of left eye L03.213 Seasonal allergies J30.2 Medical History Medical History Aneurysm Mother FHx: lung cancer mother Surgical History Surgical History H/O: hysterectomy History of partial hysterectomy 2009 - [facility] – [place] Hx of LASIK Tobacco Smoking/Tobacco Use Status: Never Alcohol Alcohol Intake: current Alcohol intake frequency: holidays/special occasions only Substance Use Substance use: Never Substance use type: does not use Vital Signs and Lab Results Vital Signs Most Recent Vital Signs in EMR: Most Recent Vital Signs Temp Pulse Resp BP Pulse Ox 36.4 C L 81 16 122/84 99 08/22/22 12:32 08/22/22 12:32 08/22/22 12:32 08/22/22 12:32 08/22/22 12:32 Lab Results Blood Type / Crossmatch: No Data to Display Complete Blood Count: No Data to Display Complete Metabolic Panel: No Data to Display Liver Function Panel: No Data to Display Coagulation Panel: No Data to Display Cardiac Panel: No Data to Display Arterial Blood Gas: No Data to Display Venous Blood Gas: No Data to Display Pancreas Panel: No Data to Display Thyroid Panel: No Data to Display Infectious Disease: No Data to Display Blood Cultures: No Data to Display Toxicology Panel: No Data to Display Imaging and Studies Imaging and Studies Study information below may be from another EMR and interpreted by another provider. Please see original notes in EMR for more complete details. EKG Summary: Conclusion Sinus rhythm...normal P axis, V-rate 60- 99 Low voltage, precordial leads...precordial leads <1.0mV. Sinus. No STEMI. Anesthesia Assessment and Plan Anesthesia History Personal History: No History of Anesthesia Complications Family History: No Family History of Anesthesia Complications Exercise Tolerance Exercise Tolerance: Metabolic Equivalents>4 Pertinent Negatives Pertinent Negatives: No Symptoms of GERD Cardiac & Pulmonary Exam Cardiac Exam: Normal S1/S2 Heart Sounds Pulmonary Exam: Clear Bilateral Breath Sounds Implantable Cardiac Device Does patient have a Pacemaker or an ICD?: No Airway Exam Known Difficult Airway: No Mallampati Class: 2 Mouth Opening: Normal (> 3cm) Thyromental Distance: Greater than 3 cm Neck Range of Motion: Full ROM Neck Circumference: Normal Teeth Condition: Normal Dentition ASA Classification ASA Score: ASA 2 Emergency Case?: No NPO Status NPO Status: NPO Clears >2 hours, Solids >8 hours Anesthesia Plan Resuscitation Status: Full Code Anesthesia Technique: General Anesthesia Airway Planned: LMA Monitors Used: Standard Monitors Preoperative Comments:: Healthy no hx cardiac issues. No GERD. Pt prefers GA vs spinal but agreeable to either.
--- NOTE | 2022-08-22 14:59 | W.PREOPHP ---
Assessment and Plan Assessment and plan (1) Arthrofibrosis of total knee replacement: Status: Acute Assessment and plan: Cassi is a 62-year-old who is status post right knee replacement with arthrofibrosis. She has tried to maintain range of motion but has been unable to maintain a functional range of motion. I offered arthroscopic synovectomy with manipulation. I reviewed this in the office with her. Once again I reviewed that today. I discussed the risk to include bleeding, infection, pain, stiffness continuation, need for repeat procedures, blood clot. Despite these risk, she elects to proceed. History of Present Illness History of Present Illness Chief Complaint: Right Knee Arthrofibrosis Narrative: Cassi is a 62-year-old who is status post right knee replacement. Unfortunate, she is struggled with her range of motion. She has notable restriction in range of motion. Placed in the office and for complete detailed history. Given her restriction in motion I did offer an arthroscopic synovectomy with manipulation. She is here today for that procedure. She denies any sick contacts. She denies any chest pain or shortness of breath. Review of Systems All systems reviewed & are unremarkable except as noted in HPI and below PFSH All Active Problems Arthrofibrosis of total knee replacement (Acute) RIGHT History of total right knee replacement (TKR) (Acute 11/28/18) Dr. Almanzar Colon cancer screening (Acute) Periorbital cellulitis of left eye (Acute) Seasonal allergies (Acute) Medical History Aneurysm Mother FHx: lung cancer mother Surgical History H/O: hysterectomy History of partial hysterectomy 2009 - [facility] – [place] Hx of LASIK Family History Other Aneurysm FHx: lung cancer Social History Smoking/Tobacco Use Status: Never Smoking risk assessment performed?: Yes Alcohol Intake: current Alcohol Intake frequency: holidays/special occasions only Drug use: Never Substance use type: does not use Do you feel safe at home: Yes Do you feel safe in your relationship?: Yes Meds Allergies and Home Medications Allergies Allergy/AdvReac Type Severity Reaction Status Date / Time methylprednisolone Allergy Intermediate Verified 08/21/22 12:04 [From Depo-Medrol] Home Medications Medication Instructions Recorded Confirmed Type multivitamin 1 ea PO DAILY 08/10/14 08/22/22 History loratadine 5 mg-pseudoephedrine ER 1 tab PO Q12H PRN 11/08/18 08/22/22 History 120 mg tablet,extended release,12hr (Claritin-D 12 Hour) omega 3-zui-uge-fish oil 1,000 mg 1 cap PO DAILY 11/08/18 08/22/22 History (120 mg-180 mg) capsule (Fish Oil) acetaminophen 500 mg tablet 1,000 mg PO Q8H PRN pain #90 tabs 11/29/18 08/22/22 Rx ibuprofen 200 mg tablet (IBU-200) 400 mg PO Q6H PRN 11/10/19 08/22/22 History Exam Resp Effort & Inspection: normal respiratory effort Auscultation: clear to auscultation bilaterally Cardio Rate: regular rate Rhythm: regular rhythm Results Last Vital Signs Temp 36.4 C L 08/22/22 12:32 Pulse 81 08/22/22 12:32 Resp 16 08/22/22 12:32 BP 122/84 08/22/22 12:32 Pulse Ox 99 08/22/22 12:32
[2022-08-22] MEDS: ceFAZolin 2 GM/50 ML BAG IVPB (15:07)
[2022-08-22] MEDS: Bupivacaine 0.5% Pres-Free 30 ML VIAL (15:28)
[2022-08-22] MEDS: EPINEPHrine 30 MG/30 ML VIAL (15:29)
--- NOTE | 2022-08-22 15:57 | PDOC.DSDIS_ITS ---
Date of service: 08/22/22 Time of Service: 15:57 Discharge Plan Disposition Patient Disposition: Home Condition: Good Discharge Details Reason For Visit: Right Arthrofibrosis Attending Provider: Aldair Almanzar Primary Care Provider: Ciara Founatin Home Meds and New Rx's Prescriptions: New ibuprofen 600 mg tablet 600 mg PO TID PRN (Reason: pain) Qty: 60 3RF hydrocodone-acetaminophen 5-325 mg tablet 1 tab PO Q6H PRN (Reason: pain) Qty: 12 0RF Continued multivitamin 1 EACH tablet 1 ea PO DAILY Claritin-D 12 Hour 5-120 mg Tablet Extended Release 12 Hr 1 tab PO Q12H PRN omega 0-rsr-zcr-fish oil [Fish Oil] 1,000 mg (120 mg-180 mg) Capsule 1 cap PO DAILY acetaminophen 500 mg tablet 1,000 mg PO Q8H PRN (Reason: pain) Qty: 90 3RF Discontinued ibuprofen [IBU-200] 200 mg Tablet 400 mg PO Q6H PRN Discharge Instructions Additional Instructions: Knee Manipulation Discharge Instructions Activity: You should begin moving as soon as possible. You may work on flexion but also equally maintain extension. You may bear weight as tolerated, using crutches only for support/comfort. You should apply ice to help with swelling and elevate when possible (especially in the first few days). Dressings: The knee dressing may come down after 48 hours. You may shower and get the wound wet at that time. You should keep the wounds covered with a bandaid until follow-up. Medications: - Rarely does this require any stronger pain medications, some additional Hydrocodone was called in just in case. - Recommend to take up to 1000mg of Acetaminophen (Tylenol) and 600mg of Ibup rofen (Advil) every 8 hours as needed. These larger strength tablets were called in but you also may use [id number]. Follow-up: 7-10 days. You will start physical therapy this week. Referrals: Aldair Almanzar MD [ [facility] STAFF PHYSICIAN] - Activity:: Elevate Remove Dressings/Wound Care:: 48 hours Shower/Bathe:: 48 hours Diet:: As Tolerated Discharge Orders Discharge Orders: Discharge Order (Routine); Ordered 08/22/22 Ordered By: Aldair Almanzar DS: Diagnosis Discharge Diagnosis (1) Arthrofibrosis of total knee replacement: Status: Acute
[2022-08-22] MEDS: Normal Saline 10 ML VIAL IJ (16:11)
[2022-08-22] MEDS: HYDROmorphone 2 MG/ML SYR IVP (16:11)
--- NOTE | 2022-08-22 16:41 | W.ANESPOSTOP ---
Postoperative Evaluation Date, Time and Location Date Performed: 08/22/22 Time Performed: 16:41 Patient Location: Day Surgery Unit Vital Signs Most Recent Imported Vital Signs: Most Recent Vital Signs Temp Pulse Resp BP Pulse Ox 36.5 C 66 14 133/74 95 08/22/22 16:10 08/22/22 16:25 08/22/22 16:25 08/22/22 16:25 08/22/22 16:25 Pain Score Most Recent Pain Score: Most Recent Pain Score Pain Level 4 08/22/22 16:25 Assessment Mental Status: Awake (Alert & Oriented to Patient Baseline) Airway and Respiratory Function: Patent airway with normal (patient baseline) respiratory exam Cardiovascular Function: Hemodynamically Stable Hydration Status: Adequately Hydrated Nausea & Vomiting: No Nausea or Vomiting Pain: Pain is tolerable per patient Peripheral Nerve Block: Patient did not receive a nerve block
[2022-08-22] MEDS: HYDROcodone 5/Acetaminophen 325 TAB PO (16:58)
--- NOTE | 2022-08-22 19:00 | ROE_ITS ---
Date of service: 08/22/22 Time of Service: 15:30 Operative Note Operative Note DATE OF PROCEDURE: 08/22/22 PRE-OP DIAGNOSIS: Arthrofibrosis of Knee Replacement -right knee POST-OP DIAGNOSIS: same PROCEDURE: Arthroscopic Synovectomy of 3 Compartments with Manipulation -right knee SURGEON: Aldair Almanzar ANESTHESIA TYPE: General LMA/ETT Refer to Anesthesia Record ESTIMATED BLOOD LOSS: 0 PATHOLOGY: none sent COMPLICATIONS: None Patient was transported to: PACU Patient's condition: stable Indications: I have seen Cassi in clinic for symptoms of arthrofibrosis of the knee following knee replacement surgery. Nonoperative measures were exhausted but disability due to lack of motion persisted. I discussed knee arthroscopy with synovectomy with maniuplation with the patient. I reviewed the risks of the procedure to include, but not limited to, bleeding, infection, pain, continued stiffness, recurrence, blood clot. Despite these risks, the patient elected to proceed. Findings: Preoperative Range of Motion: Flexion: 85 Extension:5 Postoperative Range of Motion: Flexion:125 Extension:5 Procedure Description: Cassi was greeted in the preoperative holding area where the correct side was identified and marked. The consent was reviewed with the patient and signed. The history and physical was updated. All questions were answered. She was taken back to the operating room. The patient was placed into the supine position on the operating room table. All bony prominences were well padded. Prophylactic antibiotics in the form of Cefazolin were administered. Preoperative range of motion was assessed as 5 - 85. The right leg was then prepped with Chloraprep and draped in a standard fashion with stockinette and extremity drape. A timeout to confirm correct identity, side and site, pro cedure, allergies, anesthesia, and medical concerns was performed. The leg was placed into a pneumatic leg ortiz, SPIDER2. A standard lateral portal was made at the lateral border of the patella tendon in line with the inferior pole of the patella, soft spot. The skin and deep tissue was incised sharply and the blunt trochar was inserted atraumatically. At this point had visualization of the femoral component. A superolateral portal was then established with spinal needle localization just superior and lateral to the patella. A knife was taken down through the skin and soft tissue to enter the knee joint. There is abundant scar tissue. There is pedunculated and frayed tissue edges which seem to be I did adhesions and synovitis. No significant inflammatory change was appreciated. Then, starting in the superior compartment above the femoral component and anterior to the femur I released all scarring between the anterior femoral synovium and the overlying extensor mechanism. T his was taken through all of any noticeable scar tissue until the superior patellar pouch was fully released and mobile. This resection was carried out mostly with electrocautery as well as shaver. Once this was released fully from lateral to medial superiorly I then continue working down the lateral gutter. All scar tissue in the lateral gutter was released so there is normal space and movement between the capsular tissues and the edge of the femoral component and femur. This was taken down through the lateral gutter such that I was able to identify the polyethylene to its posterior corner. Once again, all scar tissue in this area was resected so the polyethylene was easily visible and there is no interposed tissue in the back or the polyethylene was identified. I think continue to work anteriorly. To continue the synovectomy from the lateral compartment to the anterior compartment into the medial compartment, I placed a medial portal under spinal needle localization. Once this was in place it became another working portal and I continued the synovectomy through the anterior compartment to the medial compartment. Once again, I freed up the medial gutter so I was able to visualize the polyethylene from the anterior posterior margins. There is no interposed tissue after full synovectomy was performed. Adhesions between the capsule and the femur were released. This was continued up the medial gutter until it met up with the releases performed previously in the superior compartment. Any remnant scar tissue from around the patella was then removed with a shaver and electrocautery. The arthroscope was brought back into the suprapatellar pouch and the leg was in full extension. The knee was thoroughly irrigated with the arthroscopic fluid on high flow and pressure. Inflow was stopped and excess fluid was removed. The leg was removed from the spider leg ortzi and manipulation was performed. I first push the knee into flexion and was able to obtain 125 degrees. I then worked the knee into extension, slowly applying an anterior to posterior directed pressure with support of the knee and no significant lever arm. This was cycled multiple times until I was able to obtain extension of 5 degrees. The wounds were closed with 4-0 Nylon. 0.25% ropivacaine was injected around the portal sites and into the knee. The wounds were dressed with Xeroform, 4x4 gauze, ABD pad, Kerlix and an NAKIA wrap. A cryo-cuff was applied. The patient tolerated the procedure well and was returned to the Same Day Surgery area in a stable condition suffering no known complication..
== END 2022-08-22 18:02 | disposition home or self-care (01) ==
PROVIDERS: PCP Naturopath; Visit Provider Student in an Organized Health Care Education/Training Program
PROC: (CPT 29870; principal; 2022-08-22 14:15)
DX: T84.82XA Fibrosis due to internal orthopedic prosthetic devices, implants and grafts, initial encounter (principal); Z96.651 Presence of right artificial knee joint
CPT/HCPCS: 29876; J0690; J1100; J1170; J1885; J2405; J2704

== ENCOUNTER 2024-10-20 14:29 | Outpatient (CLI) | payer MEDICAID, SELFPAY ==
--- NOTE | 2024-10-20 13:45 | DI.RAD_ITS ---
Exam(s) XR KNEE RT 3V AP,LAT,DACIA EXAM: XR KNEE RT 3V AP,LAT,DACIA CLINICAL HISTORY: RIGHT KNEE PAIN. TECHNIQUE: 2D digital imaging was performed. Three views. COMPARISON: CR XR KNEE RT 3V AP,LAT,DACIA from 07/21/2022 CR XR KNEE LT 4V AP,LAT,DACIA,PAT from 10/20/2024 FINDINGS: BONES: No acute fracture is present. No bony destructive lesion is seen. JOINTS: The knee prosthesis is normally aligned. No joint effusion is seen. SOFT TISSUE: Normal. IMPRESSION: Stable appearance of right total knee prosthesis. DATA REPOSITORY: RADIATION DOSE DELIVERED:
--- NOTE | 2024-10-20 13:45 | DI.RAD_ITS ---
Exam(s) XR KNEE LT 4V AP,LAT,DACIA,PAT EXAM: XR KNEE LT 4V AP,LAT,DACIA,PAT CLINICAL HISTORY: LEFT KNEE PAIN. TECHNIQUE: 2D digital imaging was performed. Three views. COMPARISON: CR XR KNEE RT 3V AP,LAT,DACIA from 07/21/2022 FINDINGS: BONES: No acute fracture is present. No bony destructive lesion is seen. JOINTS: The joint spaces are maintained. There is minimal periarticular spurring. The knee is normally aligned. No joint effusion is seen. SOFT TISSUE: Normal. IMPRESSION: Minimal degenerative changes of the left knee. DATA REPOSITORY: RADIATION DOSE DELIVERED:
== END 2024-10-20 14:30 | disposition home or self-care (01) ==
LOC: DIORS 14:29
PROVIDERS: PCP Naturopath; Visit Provider Student in an Organized Health Care Education/Training Program
DX: Z96.651 Presence of right artificial knee joint (principal); M25.562 Pain in left knee; M25.561 Pain in right knee
CPT/HCPCS: 73562; 73564

== ENCOUNTER 2024-11-19 02:25 | Outpatient (CLI) | payer MEDICAID, SELFPAY ==
--- NOTE | 2024-11-19 | DI.MAMMO_ITS ---
Exam(s) MAMMO SCREENING EXAM: MAMMO SCREENING CLINICAL HISTORY: SCREENING,ENCOUNTER FOR ROUTINE ADULT MEDICAL HEALTH EXAM,Z00.00 TECHNIQUE: Mammograms were interpreted according to the usual protocol including computer analysis with CAD system, tomosynthesis and C-view imaging. COMPARISON: 2015 through 2021 FINDINGS: The breasts are composed of mainly fatty density , Breast Density category A. No suspicious masses or suspicious microcalcifications are seen. No skin thickening or abnormal axillary lymph nodes are seen. There has been no significant change from prior exams. IMPRESSION: BI-RADS Category 1, Negative mammogram Yearly screening mammography is recommended. Breast Density- Category A - The breast are almost entirely fatty. Breast density Category C or D implies that the patient has dense breast tissue. Dense breast tissue can make it harder to find cancer on a mammogram. Dense breast tissue is also associated with an increased risk of breast cancer. This information about the result of the mammogram report was provided to the patient to raise their awareness. Use this report when you speak with the patient about their risks for breast cancer, which includes their family history. At that time, you may recommend additional screening tests (Ultrasound or MRI) as these tests may add significant information. A negative radiographic report should not delay biopsy if a dominant or clinically suspicious mass is present. Up to ten percent of cancers are not identified on mammography. A negative report may reinforce clinical impression. Adenosis and dense breasts may obscure an underlying neoplasm. False positive reports average 6 to 10%. Patient will receive a letter notifying them of these results.
== END 2024-11-19 02:45 ==
LOC: DI 02:25
PROVIDERS: PCP Naturopath; Visit Provider Nurse Practitioner Family
DX: Z00.00 Encounter for general adult medical examination without abnormal findings (principal); Z12.31 Encounter for screening mammogram for malignant neoplasm of breast; R92.313 Mammographic fatty tissue density, bilateral breasts
CPT/HCPCS: 77063; 77067

== ENCOUNTER 2024-12-02 11:25 | Day surgery (SDC) | payer MEDICAID, SELFPAY ==
[2024-12-02] VITALS (24 sets, daily range): BP systolic 133–182; BP diastolic 69–97; PULSE 61–97; RESP 10–21; TEMP 36–36.6; O2SAT 93–100; BMI 29.2
--- NOTE | 2024-12-02 11:06 | W.ANESPRE ---
General Info Date of Service Date Performed: 12/02/24 Height: 5 ft 2 in Weight: 72.575 kg Body Mass Index (BMI): 29.2 Surgical Procedure: Operation Date: 12/02/24 15:10 Proposed Procedure Side Surgeon p Knee Arthroscopy Synovectomy Right Aldair Almanzar MD Meds Allergies and Home Medications Allergies Allergy/AdvReac Type Severity Reaction Status Date / Time methylprednisolone (From Allergy Unknown Unknown Verified 12/02/24 11:50 Depo-Medrol) Home Medication ?Medication ?Instructions ?Recorded multivitamin 1 ea PO DAILY 08/10/14 loratadine 5 mg-pseudoephedrine ER 1 tab PO Q12H PRN 11/08/18 120 mg tablet,extended release,12hr (Claritin-D 12 Hour) omega 2-gzn-ekc-fish oil 1,000 mg 1 cap PO DAILY 11/08/18 (120 mg-180 mg) capsule (Fish Oil) acetaminophen 500 mg tablet 1,000 mg (2 x 500 mg) PO Q8H PRN 08/22/22 pain #90 tabs ibuprofen 600 mg tablet 600 mg PO TID PRN pain #60 tabs 08/22/22 magnesium 30 mg tablet 30 mg PO DAILY 12/02/24 Current Visit Medications: Current Medications Generic Name Dose Route Start Last Admin Trade Name Miltonq PRN Reason Stop Dose Admin Acetaminophen 1,000 mg 12/02/24 06:00 Acetaminophen 500 Mg Tab PO 12/02/24 23:59 PREOP VARSHA Celecoxib 400 mg 12/02/24 06:00 Celecoxib 200 Mg Cap PO 12/02/24 23:59 PREOP VARSHA Ringer's Solution 1,000 mls @ 80 mls/hr 12/02/24 06:00 IV 12/02/24 23:59 INFUSION VARSHA Cefazolin Sodium/Dextrose 2 gm in 50 mls @ 100 mls/hr 12/02/24 06:00 Ancef Duplex IVPB 12/02/24 23:59 PREOP VARSHA Tranexamic Acid/Sodium Chloride 1,000 mg in 100 mls @ 600 mls/hr 12/02/24 06:00 IVPB 12/02/24 23:59 PREOP VARSHA IV Miscellaneous Supplies 1 each 12/02/24 06:00 Iv Access IV 12/02/24 23:59 DIRECTED VARSHA Sodium Chloride 0 ml 12/02/24 06:00 Normal Saline Flush 10 Ml Syr IV 12/02/24 23:59 PRN PRN Sodium Chloride 0 ml 12/02/24 06:00 Normal Saline 10 Ml Vial IJ 12/02/24 23:59 DIRECTED PRN Sterile Water 0 ml 12/02/24 06:00 Water,Injection,Sterile 10 Ml Vial IJ 12/02/24 23:59 DIRECTED PRN PFSH Active Problems Active Problems: Problem Status Onset Code Arthrofibrosis of total knee replacement Acute ~08/22/22 T84.82XA History of total right knee replacement (TKR) Acute 11/28/18 Z96.651 Colon cancer screening Acute Z12.11 Periorbital cellulitis of left eye Acute L03.213 Seasonal allergies Acute J30.2 Medical History Medical History FHx: lung cancer mother Aneurysm Mother Surgical History Surgical History History of partial hysterectomy 2009 [place] [facility] [place]x of LASIK H/O: hysterectomy Tobacco Smoking/Tobacco Use Status: Never Alcohol Alcohol Intake: current Alcohol intake frequency: holidays/special occasions only Substance Use Substance use: Never Substance use type: does not use Vital Signs and Lab Results Vital Signs Most Recent Vital Signs in EMR: Temp Pulse Resp BP Pulse Ox 36.2 C L 68 16 182/94 H 100 12/02/24 11:45 12/02/24 11:45 12/02/24 11:45 12/02/24 11:45 12/02/24 11:45 Imaging and Studies Imaging and Studies Study information below may be from another EMR and interpreted by another provider. Please see original notes in EMR for more complete details. EKG Summary: Conclusion Sinus rhythm...normal P axis, V-rate 60- 99 Low voltage, precordial leads...precordial leads <1.0mV. Sinus. No STEMI. Anesthesia Assessment and Plan Anesthesia History Personal History: Delayed Emergence Family History: No Family History of Anesthesia Complications Exercise Tolerance Exercise Tolerance: Metabolic Equivalents>4 Pertinent Negatives Pertinent Negatives: No Symptoms of GERD Cardiac & Pulmonary Exam Cardiac Exam: Normal S1/S2 Heart Sounds Pulmonary Exam: Clear Bilateral Breath Sounds Implantable Cardiac Device Does patient have a Pacemaker or an ICD?: No Airway Exam Known Difficult Airway: No Mallampati Class: 2 Mouth Opening: Normal (> 3cm) Thyromental Distance: Greater than 3 cm Neck Range of Motion: Full ROM Neck Circumference: Normal Teeth Condition: Normal Dentition ASA Classification ASA Score: ASA 2 Emergency Case?: No NPO Status NPO Status: NPO Clears >2 hours, Solids >8 hours Anesthesia Plan Resuscitation Status: Full Code Anesthesia Technique: General Anesthesia Airway Planned: LMA Monitors Used: Standard Monitors Preoperative Comments:: 64 yo female for knee scope. Sig PMHx: no major. No home meds. ECG: sinus. Previous Anes: - knee scope, prop, LMA 4, no issues. - TKA, spinal, dex/prop sedation, natural airway, no issues.
--- NOTE | 2024-12-02 11:43 | HPE_ITS ---
Assessment and Plan Assessment and plan (1) Arthrofibrosis of total knee replacement: Status: Acute Assessment and plan: Cassi is a 64-year-old female who has arthritis about the right knee after knee replacement. I previously recommended arthroscopic synovectomy to hopefully improve her range of motion. I reviewed the tentacle details of the surgery. I reviewed the risk to include continued stiffness, pain, hemarthrosis, blood clot. Spite these risk, she like to proceed. History of Present Illness History of Present Illness Chief Complaint: Right Knee Arthrofibrosis Narrative: Cassi is a 64-year-old active female who is status post right knee replacement. Unfortunate, she struggled with stiffness after her initial surgery. She underwent 1 manipulation but continued to have stiffness following. She now is in a better position in her work where she can dedicate more time to recovery and has had some progressive worsening of her range of motion. Please see the previous office note. However, previously discussed attempting arthroscopic synovectomy once more with manipulation along with physical therapy and bracing to hopefully regain her range of motion. She denies any other new symptoms. No chest pain or shortness of breath. Review of Systems All systems reviewed & are unremarkable except as noted in HPI and below PFSH All Active Problems Arthrofibrosis of total knee replacement (Acute ~08/22/22) RIGHT History of total right knee replacement (TKR) (Acute 11/28/18) Dr. Almanzar Colon cancer screening (Acute) Periorbital cellulitis of left eye (Acute) Seasonal allergies (Acute) Medical History FHx: lung cancer mother Aneurysm Mother Surgical History History of partial hysterectomy 2009 - [facility] [place] Hx of LASIK H/O: hysterectomy Family History Other Aneurysm FHx: lung cancer Social History Smoking/Tobacco Use Status: Never Smoking risk assessment performed?: Yes Alcohol Intake: current Alcohol Intake frequency: holidays/special occasions only Drug use: Never Substance use type: does not use Do you feel safe at home: Yes Do you feel safe in your relationship?: Yes Meds Allergies and Home Medications Allergies Allergy/AdvReac Type Severity Reaction Status Date / Time methylprednisolone (From Allergy Unknown Unknown Verified 11/27/24 10:00 Depo-Medrol) Home Medications ?Medication ?Instructions ?Recorded ?Confirmed ?Type multivitamin 1 ea PO DAILY 08/10/1411/27 History loratadine 5 mg-pseudoephedrine ER 1 tab PO Q12H PRN 0 11/08/18 11/27/24 History 120 mg tablet,extended release,12hr (Claritin-D 12 Hour) omega 0-ivq-vtn-fish oil 1,000 mg 1 cap PO DAILY 11/0811/27/24 History (120 mg-180 mg) capsule (Fish Oil) acetaminophen 500 mg tablet 1,000 mg (2 x 500 mg) PO Q 8H PRN 08/22/22 11/27/24 Rx pain #90 tabs ibuprofen 600 mg tablet 600 mg PO TID PRN pain #60 t abs 08/22/22 11/27/24 Rx Exam Resp Effort & Inspection: normal respiratory effort Auscultation: clear to auscultation bilaterally Cardio Rate: regular rate Rhythm: regular rhythm
[2024-12-02] MEDS: Acetaminophen 500 MG TAB 1000 MG PO (11:58)
[2024-12-02] MEDS: Celecoxib 200 MG CAP 400 MG PO (11:58)
[2024-12-02] MEDS: Lactated Ringers 1,000 ML 80 ML IV (12:01)
[2024-12-02] MEDS: TRANEXAMIC ACID/SOD. CHL. 1,000 MG/100 ML BAG 600 MG IVPB (13:02)
[2024-12-02] MEDS: ceFAZolin 2 GM/50 ML BAG IVPB (13:02)
--- NOTE | 2024-12-02 13:25 | SYNOVIUM_PTH ---
PATIENT: Cassi Lomax LOC: [facility] U#:[id number] AGE/SX: 64/F ROOM: RE12/02/[address]: Aldair Almanzar MD : [id number] BED: DIS: 12/02/2024 SPEC #: [id number] RECD: 12/03/24 12:50 STATUS: KALIN REQ #: [id number] JOS: 12/02/24 13:[address]: Aldair Almanzar DEPT: Surgical Specimen RECD BY: Krupa Wagner ENTERED: 12/03/24 12:51 SP TYPE: SYNOVIUM OTHR DR: Naomie Quinones Tissues: 1 - SYNOVIUM/IAL Procedures: GROSS AND MICRO LEVEL 4 Comments: [id number]
[2024-12-02] MEDS: Bupivacaine 0.25% Pres-Free 30 ML VIAL (13:28)
[2024-12-02] MEDS: EPINEPHrine 10 MG/10 ML ML (13:49)
--- NOTE | 2024-12-02 13:53 | W.PM.DSUDISC ---
Date of service: 12/02/24 Discharge Plan Disposition Patient Disposition: Home Condition: Good Discharge Details Reason For Visit: Arthrofibrosis of right TKA Attending Provider: Aldair Almanzar Primary Care Provider: Naomie Quinones Home Meds and New Rx's Prescriptions: New hydrocodone-acetaminophen 5-325 mg tablet 1 tab PO Q6H PRN (Reason: severe pain) Qty: 6 0RF Rx Instructions: Take one tablet up to every 6 hours as needed for severe postoperative pain acetaminophen 500 mg tablet 500 mg PO Q6H PRN (Reason: pain) Qty: 60 2RF ibuprofen 600 mg tablet 600 mg PO TID PRN (Reason: pain) Qty: 60 0RF Continued multivitamin 1 EACH tablet 1 ea PO DAILY Claritin-D 12 Hour 5-120 mg Tablet Extended Release 12 Hr 1 tab PO Q12H PRN omega 8-ecv-wmv-fish oil [Fish Oil] 1,000 mg (120 mg-180 mg) Capsule 1 cap PO DAILY magnesium 30 mg tablet 30 mg PO DAILY Discontinued ibuprofen 600 mg tablet 600 mg PO TID PRN (Reason: pain) Qty: 60 3RF acetaminophen 500 mg tablet 1,000 mg PO Q8H PRN (Reason: pain) Qty: 90 3RF Discharge Instructions Stand Alone Forms: Yohan Knee Arthroscopy Referrals: Aldair Almanzar MD [ [facility] STAFF PHYSICIAN, Orthopaedic Surgical] Equipment/Supplies: Partial Weight Bearing Crutches Activity:: Elevate Remove Dressings/Wound Care:: 48 hours Shower/Bathe:: 48 hours Diet:: As Tolerated Discharge Orders Discharge Orders: Discharge Order (Routine); Ordered 12/02/24 Ordered By: Danyelle Guzmán DS: Diagnosis Discharge Diagnosis (1) Arthrofibrosis of total knee replacement: Status: Acute
[2024-12-02] MEDS: fentaNYL 100 MCG/2 ML VIAL IVP (14:40)
--- NOTE | 2024-12-02 14:45 | W.ANESPOSTOP ---
Postoperative Evaluation Date, Time and Location Date Performed: 12/02/24 Time Performed: 14:45 Patient Location: PACU Vital Signs Most Recent Imported Vital Signs: Most Recent Vital Signs Temp Pulse Resp BP Pulse Ox 36.5 C 63 20 145/83 H 98 12/02/24 14:33 12/02/24 14:41 12/02/24 14:41 12/02/24 14:40 12/02/24 14:41 Pain Score Most Recent Pain Score: Most Recent Pain Score Pain Level 0 12/02/24 14:33 Assessment Mental Status: Awake (Alert & Oriented to Patient Baseline) Airway and Respiratory Function: Patent airway with normal (patient baseline) respiratory exam Cardiovascular Function: Hemodynamically Stable Hydration Status: Adequately Hydrated Nausea & Vomiting: No Nausea or Vomiting Pain: Pt. Denies Any Pain Peripheral Nerve Block: Patient did not receive a nerve block
--- NOTE | 2024-12-02 15:08 | ROE_ITS ---
Operative Note Operative Note PRE-OP DIAGNOSIS: Arthrofibrosis of Knee Replacement - RIGHT POST-OP DIAGNOSIS: same Right Knee Synovitis PROCEDURE: Arthroscopic Synovectomy of 3 Compartments with Manipulation - RIGHT Knee Synovial Biopsy - RIGHT knee SURGEON: Aldair Almanzar ANESTHESIA TYPE: General LMA/ETT Refer to Anesthesia Record ESTIMATED BLOOD LOSS: 0 PATHOLOGY: other (Synovium) TOURNIQUET TIME: 0 COMPLICATIONS: None Patient was transported to: PACU Patient's condition: stable Indications: I have seen Cassi in clinic for symptoms of arthrofibrosis of the knee following knee replacement surgery. Nonoperative measures were exhausted but disability due to lack of motion persisted. I discussed knee arthroscopy with synovectomy with maniuplation with the patient. I reviewed the risks of the procedure to include, but not limited to, bleeding, infection, pain, continued stiffness, recurrence, blood clot. Despite these risks, the patient elected to proceed. Findings: There is dense synovitis seen within the knee with white crystalline type debris. Preoperative Range of Motion: Flexion: 75 Extension:0 Postoperative Range of Motion: Flexion:120 Extension:0 Procedure Description: Cassi was greeted in the preoperative holding area where the correct side was identified and marked. The consent was reviewed with the patient and signed. The history and physical was updated. All questions were answered. She was taken back to the operating room. The patient was placed into the supine position on the operating room table. All bony prominences were well padded. Prophylactic antibiotics in the form of Cefazolin were administered. Preoperative range of motion was assessed as 0 - 75. The right leg was then prepped with Chloraprep and draped in a standard fashion with stockinette and extremity drape. A timeout to confirm correct identity, side and site, procedure, allergies, anesthesia, and medical concerns was performed. A standard lateral portal was made at the lateral border of the patella tendon in line with the inferior pole of the patella, soft spot. The skin and deep tissue was incised sharply and the blunt trochar was inserted atraumatically. At this point had visualization of the femoral component. There was dense synovitis seen throughout this area with pedunculated synovium with inflammatory changes and a white crystalline type material deposit within the tissues. Then, A superolateral portal was then established with spinal needle localization just superior and lateral to the patella. A knife was taken down through the skin and soft tissue to enter the knee joint. Starting in the superior compartment above the femoral component and anterior to the femur I released all scarring between the anterior femoral synovium and the overlying extensor mechanism. I t ook a few samples of synovium which had a white crystalline type deposits in it. I sent this to the pathology for evaluation. This was taken through all of any noticeable scar tissue until the superior patellar pouch was fully released and mobile. This resection was carried out mostly with electrocautery as well as shaver. There was very dense tissue and the excessive pedunculated synovium was able be resected quite easily with the shaver after freeing and releasing it with the electrocautery. Then once Synovium Was released fully from lateral to medial superiorly I then continue working down the lateral gutter. All scar tissue in the lateral gutter was released so there is normal space and movement between the capsular tissues and the edge of the femoral component and femur. This was taken down through the lateral gutter such that I was able to identify the polyethylene to its posterior corner. Once again, all scar tissue in this area was resected so the polyethylene was easily visible and there is no interposed tissue in the back or the polyethylene was identified. Once again, it is quite dense and inflamed in this region. I continued to work anteriorly. To continue the synovectomy from the lateral compartment to the anterior compartment into the medial compartment, I placed a medial portal under spinal needle localization. Once this was in place it became another working portal and I continued the synovectomy through the anterior compartment to the medial compartment. Once again, I freed up the medial gutter so I was able to visualize the polyethylene from the anterior posterior margins. There is no interposed tissue after full synovectomy was performed but once again significant synovitis seen around the periphery towards the posterior medial corner. Adhesions between the capsule and the femur were released. This was continued up the medial gutter until it met up with the releases performed previously in the superior compartment. Any remnant scar tissue from around the patella was then removed with a shaver and electrocautery. The arthroscope was brought back into the suprapatellar pouch and the leg was in full extension. The knee was thoroughly irrigated with the arthroscopic fluid on high flow and pressure. Inflow was stopped and excess fluid was removed. Ambulation was then performed. I was able to easily get the leg to about 105 degrees and then with some effort I could obtain 120 degrees. The wounds were closed with 4-0 Nylon. 0.25% bupivacaine was injected around the portal sites and into the knee. The wounds were dressed with Xeroform, 4x4 gauze, ABD pad, Kerlix and an NAKIA wrap. A cryo-cuff was applied. The patient tolerated the procedure well and was returned to the [facility] area in a stable condition suffering no known complication.. Date of Procedure: 12/02/24
== END 2024-12-02 16:27 | disposition home or self-care (01) ==
PROVIDERS: PCP Nurse Practitioner Family; Visit Provider Student in an Organized Health Care Education/Training Program
PROC: (CPT 29870; principal; 2024-12-02 15:00)
DX: T84.82XA Fibrosis due to internal orthopedic prosthetic devices, implants and grafts, initial encounter (principal); Z96.651 Presence of right artificial knee joint; M65.861 Other synovitis and tenosynovitis, right lower leg
CPT/HCPCS: 29876; 88305; J0330; J0665; J0690; J1100; J2003; J2405; J2704; J3010; J3475

== ENCOUNTER 2024-12-24 14:16 | Outpatient (CLI) | payer MEDICAID, SELFPAY ==
--- NOTE | 2024-12-24 05:45 | DI.NM_ITS ---
Exam(s) NM BONE SCAN 3 PHASE EXAM: NM BONE SCAN 3 PHASE CLINICAL HISTORY: PAIN, ? LOOSENING T84.82XA FIBROSIS T84.84XA PAIN. TECHNIQUE: Injected Dose: 25 mCi Tc-99m MDP Flow, blood pool and delayed images were performed of the knees. Delayed whole body images were also performed. COMPARISON: CR XR KNEE RT 3V AP,LAT,DACIA from 07/21/2022 CR XR KNEE LT 4V AP,LAT,DACIA,PAT from 10/20/2024 CR XR KNEE RT 3V AP,LAT,DACIA from 10/20/2024 FINDINGS: Perfusion: Mild hyperemia around the right knee. Blood Pool: Mildly increased activity around the right knee. Delayed: Increased activity noted around the right knee prosthesis, greater laterally at the margin of the femoral component of the total knee prosthesis. There is a decreased activity at the patella. There is mildly increased activity beneath the tibial tray. Whole body images are unremarkable. IMPRESSION: Increased activity greatest around the femoral component of the 1st prosthesis which could indicate loosening. DATA REPOSITORY:
[2024-12-24 11:40] LABS: ESR 15 mm/hr (0-30)
[2024-12-24 12:25] LABS: C-Reactive Protein < 0.50 mg/dL (<or=0.5)
== END 2024-12-24 14:36 ==
LOC: DI 14:16
PROVIDERS: PCP Nurse Practitioner Family; Visit Provider Student in an Organized Health Care Education/Training Program
DX: T84.82XA Fibrosis due to internal orthopedic prosthetic devices, implants and grafts, initial encounter (principal); T84.84XA Pain due to internal orthopedic prosthetic devices, implants and grafts, initial encounter
CPT/HCPCS: 85652; 78315; 86140

== ENCOUNTER 2025-03-02 13:33 | Outpatient (REF) | payer MEDICAID, SELFPAY ==
[2025-03-02 15:05] LABS: HCT 37.8 % (36.0-46.0); HGB 12.7 g/dL (11.2-15.7); MCH 28.3 pg (27.0-33.0); MCHC 33.6 % (32.0-36.0); MCV 84 fL (80-95); MPV 9.1 fL (8.0-11.0); Platelet Count 303 10^3/uL (130-400); RBC 4.49 10^6/uL (3.93-5.22); RDW 12.9 % (11.7-14.6); RDW-SD 39.8 fL; WBC 6.56 10^3/uL (4.4-10.8)
[2025-03-02 15:17] LABS: Anion Gap 9.8 mmol/L (3-11); BUN 16 mg/dL (7-18); CO2 26.2 mmol/L (21.0-32.0); Calcium 8.8 mg/dL (8.5-10.1); Chloride 103 mmol/L (98-107); Glucose 80 mg/dL (74-106); Potassium 3.8 mmol/L (3.5-5.1); Sodium 139 mmol/L (136-145)
== END 2025-03-02 13:34 | disposition home or self-care (01) ==
LOC: LBN 13:33
PROVIDERS: PCP Nurse Practitioner Family; Visit Provider Student in an Organized Health Care Education/Training Program
DX: T84.032A Mechanical loosening of internal right knee prosthetic joint, initial encounter (principal); Z01.818 Encounter for other preprocedural examination
CPT/HCPCS: 80048; 85027

== ENCOUNTER 2025-03-10 09:43 | Inpatient (IN) | payer MEDICAID, SELFPAY ==
--- NOTE | 2025-03-09 15:33 | W.ANESPRE ---
General Info Date of Service Date Performed: 03/10/25 Height: 5 ft 2 in Weight: 73.936 kg Body Mass Index (BMI): 29.8 Surgical Procedure: Operation Date: 03/10/25 11:55 Proposed Procedure Side Surgeon p Knee Total Revision, ATTUNE Right Aldair Almanzar MD Meds Allergies and Home Medications Allergies Allergy/AdvReac Type Severity Reaction Status Date / Time methylprednisolone (From Allergy Unknown Unknown Verified 03/10/25 10:14 Depo-Medrol) Home Medication Medication Instructions Recorded multivitamin 1 ea PO DAILY 08/10/14 loratadine 5 mg-pseudoephedrine ER 1 tab PO Q12H PRN 11/08/18 120 mg tablet,extended release,12hr (Claritin-D 12 Hour) omega 5-mbf-oai-fish oil 1,000 mg 1 cap PO DAILY 11/08/18 (120 mg-180 mg) capsule (Fish Oil) magnesium 30 mg tablet 30 mg PO DAILY 12/02/24 acetaminophen 500 mg tablet 1,000 mg (2 x 500 mg) PO Q8H PRN 03/10/25 pain #90 tabs aspirin 81 mg tablet,delayed 81 mg PO BID 30 days #60 tabs 03/10/25 release dexamethasone 4 mg tablet 4 mg PO DAILY #1 tab 03/10/25 docusate sodium 100 mg capsule 100 mg PO BID #28 caps 03/10/25 (Colace) gabapentin 300 mg capsule 300 mg PO QHS #14 caps 03/10/25 ibuprofen 600 mg tablet 600 mg PO TID PRN pain #90 tabs 03/10/25 oxycodone 5 mg tablet 2.5 - 5 mg (0.5 - 1 x 5 mg) PO Q4H 03/10/25 PRN #18 tabs pantoprazole 40 mg tablet,delayed 40 mg PO DAILY #14 tabs 03/10/25 release Current Visit Medications: Current Medications Generic Name Dose Route Start Last Admin Trade Name Freq PRN Reason Stop Dose Admin Acetaminophen 1,000 mg 03/10/25 06:00 Acetaminophen 500 Mg Tab PO 03/10/25 23:59 PREOP VARSHA Celecoxib 400 mg 03/10/25 06:00 Celecoxib 200 Mg Cap PO 03/10/25 23:59 PREOP VARSHA Gabapentin 300 mg 03/10/25 06:00 Gabapentin 300 Mg Cap PO 03/10/25 23:59 PREOP VARSHA Ringer's Solution 1,000 mls @ 80 mls/hr 03/10/25 06:00 IV 03/10/25 23:59 INFUSION VARSHA Cefazolin Sodium/Dextrose 2 gm in 50 mls @ 100 mls/hr 03/10/25 06:00 Ancef Duplex IVPB 03/10/25 23:59 PREOP VARSHA Tranexamic Acid/Sodium Chloride 1,000 mg in 100 mls @ 600 mls/hr 03/10/25 06:00 IVPB 03/10/25 23:59 PREOP VARSHA IV Miscellaneous Supplies 1 each 03/10/25 06:00 Iv Access IV 03/10/25 23:59 DIRECTED VARSHA Sodium Chloride 0 ml 03/10/25 06:00 Normal Saline Flush 10 Ml Syr IV 03/10/25 23:59 PRN PRN Sodium Chloride 0 ml 03/10/25 06:00 Normal Saline 10 Ml Vial IJ 03/10/25 23:59 DIRECTED PRN Sterile Water 0 ml 03/10/25 06:00 Water,Injection,Sterile 10 Ml Vial IJ 03/10/25 23:59 DIRECTED PRN PFSH Active Problems Active Problems: Problem Status Onset Code Arthritis of left knee Acute M17.12 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 Pseudogout Acute M11.20 History of arthroscopy of right knee Acute Z98.890 Arthrofibrosis of total knee replacement Acute ~08/22/22 T84.82XA History of total right knee replacement (TKR) Acute 11/28/18 Z96.651 Colon cancer screening Acute Z12.11 Periorbital cellulitis of left eye Acute L03.213 Seasonal allergies Acute J30.2 Medical History Medical History FHx: lung cancer mother Aneurysm Mother Surgical History Surgical History [place] [facility] [place] [place] H/O: hysterectomy Tobacco Smoking/Tobacco Use Status: Never Passive smoking exposure: No Alcohol Alcohol Intake: current Alcohol intake frequency: holidays/special occasions only Substance Use Substance use: Never Substance use type: does not use Vital Signs and Lab Results Vital Signs Comment Vital Signs Comment:: Temp Pulse Resp BP Pulse Ox 36 C L 69 16 139/82 98 03/10/25 10:15 03/10/25 10:15 03/10/25 10:15 03/10/25 10:15 03/10/25 10:15 Lab Results Complete Blood Count: WBC, (4.4-10.8) 6.56 10^3/uL 03/02/25, 11:30 RBC, (3.93-5.22) 4.49 10^6/uL 03/02/25, 11:30 Hgb, (11.2-15.7) 12.7 g/dL 03/02/25, 11:30 Hct, (36.0-46.0) 37.8 % 03/02/25, 11: Plt Count, (130-400) 303 10^3/uL 03/02/25, 11:30 Complete Metabolic Panel: Sodium, (136-145) 139 mmol/L 03/02/25, 11:30 Potassium, (3.5-5.1) 3.8 mmol/L 03/02/25, 11:30 Chloride, (98-107) 103 mmol/L 03/02/25, 11:30 Carbon Dioxide, (21.0-32.0) 26.2 mmol/L 03/02/25, 11:30 BUN, (7-18) 16 mg/dL 03/02/25, 11:30 Creatinine, (0.55-1.02) 0.6 mg/dL 03/02/25, 11:30 Est GFR (CKD-EPI 2020), (mL/min/1.73m2) 100.80 03/02/25, 11:30 Calcium, (8.5-10.1) 8.8 mg/dL 03/02/25, 11:30 Glucose, (74-106) 80 mg/dL 03/02/25, 11:30 Imaging and Studies Imaging and Studies Study information below may be from another EMR and interpreted by another provider. Please see original notes in EMR for more complete details. EKG Summary: Conclusion Sinus rhythm...normal P axis, V-rate 60- 99 Low voltage, precordial leads...precordial leads <1.0mV. Sinus. No STEMI. Anesthesia Assessment and Plan Anesthesia History Personal History: No History of Anesthesia Complications Family History: No Family History of Anesthesia Complications and Family History Unknown Exercise Tolerance Exercise Tolerance: Metabolic Equivalents>4 Pertinent Negatives Pertinent Negatives: No Symptoms of GERD, No Major Cardiovascular Symptoms or Complaints, No Major Pulmonary Symptoms or Complaints and No History of CVA/TIA Cardiac & Pulmonary Exam Cardiac Exam: Normal S1/S2 Heart Sounds Pulmonary Exam: Clear Bilateral Breath Sounds Implantable Cardiac Device Does patient have a Pacemaker or an ICD?: No Airway Exam Known Difficult Airway: No Mallampati Class: 2 Mouth Opening: Normal (> 3cm) Thyromental Distance: Greater than 3 cm Neck Range of Motion: Full ROM Neck Circumference: Normal Teeth Condition: Normal Dentition ASA Classification ASA Score: ASA 2 Emergency Case?: No NPO Status NPO Status: NPO Clears >2 hours, Solids >8 hours Anesthesia Plan Resuscitation Status: Full Code Anesthesia Technique: Spinal Anesthesia Airway Planned: Natural Airway Pain Management: Surgeon and patient request nerve block Monitors Used: Standard Monitors
[2025-03-10] VITALS (32 sets, daily range): BP systolic 74–139; BP diastolic 48–83; PULSE 66–91; RESP 11–19; TEMP 36–36.8; O2SAT 95–99; BMI 29.8
--- NOTE | 2025-03-10 | DI.RAD_ITS ---
Exam(s) XR KNEE RT 2V AP,LAT EXAM: XR KNEE RT 2V AP,LAT CLINICAL HISTORY: s/p revision TKA. TECHNIQUE: 2D digital imaging was performed. COMPARISON: CR XR KNEE RT 3V AP,LAT,DACIA from 10/20/2024 FINDINGS: Two postop views Compared to the images of 10/20/2024 there has been revision of both the femoral and tibial components of the prosthesis with longer stem components now evident. These newly placed components appear well seated. No fractures and no evidence of loosening. Patellar resurfacing is again noted. IMPRESSION: Satisfactory postop appearance of revision prosthesis components. DATA REPOSITORY: RADIATION DOSE DELIVERED:
[2025-03-10] MEDS: Lactated Ringers 1,000 ML 80 ML IV (10:37)
[2025-03-10] MEDS: Gabapentin 300 MG CAP PO ×2 (10:41→21:23)
[2025-03-10] MEDS: Celecoxib 200 MG CAP 400 MG PO (10:42)
--- NOTE | 2025-03-10 12:28 | ROE_ITS ---
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 POST-OP DIAGNOSIS: same PROCEDURE: Revision Total Knee Replacement - RIGHT SURGEON: Aldair Almanzar ELECTRONIC EQUIPMENT REPAIRER: Danyelle Guzmán ANESTHESIA TYPE: Spinal Refer to Anesthesia Record ESTIMATED BLOOD LOSS: 200 PATHOLOGY: none sent TOURNIQUET TIME: 46 COMPLICATIONS: None Patient was transported to: PACU Patient's condition: stable Implants: TIBIA: Depuy Attune Revision Tibial Tray, Size 3 - [id number] Cementless Tibial Stem - Fully Coated Cementless Sleeve, 29mm FEMUR: Depuy Attune Revision CRS Femoral Component, Size 4 - [id number] Cemented Femoral Stem - Cementless Cone, Small - 4mm distal augments, medial and lateral POLY: Depuy Attune CRS Rotating Platform, 4x14mm Indications: I have seen Cassi in clinic for symptoms of ongoing knee pain and stiffness. She has had recurrent stiffness about the knee despite multiple interventions and trials of physical therapy. Recent bone scan showed concerns for loosening of both the femur and the tibia and thus I offered revision knee arthroplasty to treat the loose components but also her arthrofibrosis. I discussed the technical details of a revision knee replacement. I explained the risks of the procedure to include, but not limited to, bleeding, infection, pain, stiffness, fracture, damage to nerves and vessels, damage to muscles and tendons, loosening, need for repeat procedure, blood clot and cardiopulmonary demise. Despite these risks, Cassi elected to proceed. Findings: There was no gross loosening. There was some areas of the lateral tibia and the far medial aspect of the tibia which had some loosening of the cement from the bone. Likewise there was some areas of loosening between the bone and some interface over the lateral aspect of the femur. Both components were able to be removed with minimal bone loss with cement well affixed to the components. An aggressive synovectomy was performed with capsular releases and revision arthroplasty implanted without difficulty. Procedure Description: Cassi was greeted in the preoperative holding area where the correct side was i dentified and marked. The consent was reviewed with the patient and signed. The history and physical was updated. All questions were answered. Preoperative medications were administered: Acetaminophen 1000mg, Celebrex 400mg, and Gabapentin 300mg. An adductor canal block was then administered by the anesthesia team in the [facility]. Cassi was taken back to the operating room. A spinal anesthestic was then administered. The patient was placed into the supine position on the operating room table. A nonsterile tourniquet was placed high onto the leg. Posts were placed for positioning during the procedure. All bony prominences were well padded. Prophylactic antibiotics in the form of Cefazolin were administered. 1g of Tranxemic Acid was given intravenously within 30 minutes of incision. The right leg was then prepped with Chloraprep and draped in a standard fashion with impervious stockinette. A second prep with Chloraprep was performed prior to application of Iodine impregnated skin protection. A timeout to confirm correct identity, side and site, procedure, allergies, anesthesia, and medical concerns was performed. With the knee in some flexion, the previous midline incision was made overlying the knee. Full thickness skin flaps were raised once the extensor mechanism was encountered. These were raised medially and laterally in a full thickness fashion. Any bleeding was controlled with electrocautery. Once the extensor mechanism was fully exposed, a medial parapatellar arthrotomy was performed in a flexed position. All bleeding from the arthrotomy and the geniculate arteries was coagulated. An aggressive complete synovectomy was then performed superiorly, medially, and laterally. Scarring from the fat pad and a portion of the fat pad was removed as well. The knee was then flexed up and the previous polyethylene was removed. Attention was then turned to removal of the previous implants. Starting with the femur the interface between the bone and the implant was identified. Utilizing flexible osteotomes I went around the entirety of the femoral component to remove any remaining attachments of the component to the underlying bone. There is seem to be some loose bone, cement interface over the lateral–distal aspect of the femur to lesser extent the medial–distal aspect. This process was done sequentially in a stepwise fashion throughout. Then utilizing a bone tamp on the end of the implant as well as anteriorly, was able to remove the femoral component with minimal bone loss. The bone and release this was inspected. Any remnant cement was removed from the femoral surface utilizing a rongeur. Then, attention was turned to the tibia. Once again, utilizing a set of flexible osteotomes I worked on the tibial component from the underlying bone. This was done around the periphery of the component until was felt that it was sufficiently freed. There seem to be some loose connection to the bone cement laterally and at the far peripheral aspect of the medial side although no gross loosening. Then, utilizing a bone tamp from under the lip of the tibia I was able to remove the tibial component. Once again, this was inspected and showed no significant signs of bone loss or fracture. Cement was then removed from the proximal tibia utilizing a small straight osteotome. Small cruciate de luna were made and the cement and the cement was removed from the bone trying to disturb his little bone as possible underneath the cement. This is also taken down into the canal where the osteotome was utilized to break through the distal plug of cement which was removed. Utilizing curved osteotomes as well as curettes, was able to remove the remaining cement from the proximal tibia. A posterior synovectomy was also performed there was better visualization. Any remnant inflamed synovium and necrotic tissue was debrided fully. This was taken around the periphery of the femur and the tibia for full exposure of the surfaces. The capsular tissue was extremely dense posteriorly and this was released off the femur and the posterior tibia. Starting with the tibia, the tibial canal was reamed by hand. This was taken up until there is adequate cortical engagement. The reamer was left in place, taken down to an appropriate depth based on the planned construct. This appeared to have appropriate positioning. I then utilized the broaching system to broach for a cementless sleeve. This was done up to a size 10mm. The broach was taken just below the cut surface of the tibia and left in place. The proximal aspect of the tibia was then cut in plane with the broach surface. Peripheral soft tissues were protected with appropriate retractors. The broach was removed and the trial component was placed. The tibial tray was rotated naproxen to the medial one third of the tibial tubercle and locked into position. Attention was turned to the femur where the femoral canal was reamed by hand as well. This was ensured to be starting in a central slightly posterior position to avoid anterior notching. This was taken up to a size 14mm reamer. Initial plan was to distalize the femur and this was accounted for during the reaming and broaching process for appropriate joint line. A freshening cut was made over the distal aspect of the femur removing no more than 2 mm of bone for a fresh, flat distal femur surface. Extension and flexion gaps were then assessed. Rotation of the femoral component was set with the tibia in 90 degrees. The posterior cuts were then assessed. This showed no necessary pos terior augments. The anterior and posterior chamfers were cut. The central portion of the jig was then removed and the notch was cut. Trial implants were then inserted. The knee was taken through range of motion. This showed stability with a 14mm polyethylene insert. The trial femur was removed. The distal aspect of the femur was reamed with an 18 mm reamer to account for the size of the femoral boss. The tibia was punched to make room for the keel. The trial tibial implant was removed. The distal femur was prepared for a cementless cone to be used. The reamer for this was utilized to prepare the site and a trial cone showed appropriate fixation. The final components, except for the polyethylene were opened on the back table. The periosteal and capsular tissues, especially posteriorly, around the knee were then systematically injected with a periarticular cocktail consisting of 200mg of Ropivacaine, 0.5mg of Epinephrine, and 30mg of Ketorolac, diluted to 100cc.. The tourniquet was then inflated to 300mmHg. The knee was thoroughly irrigated with a pulse lavage and dried. On the back table, the implants were opened. They were assembled matching the rotation and position of the trial implants on the final components. They are prepared according to hardwood floor sander recommendations. The cementless cone was impacted into the distal femur without sign of fracture. A cement restrictor was placed in the femur. Now with the implants opened, the cement was mixed. 2 batches of medium viscosity cement were prepared with vacuum assistance. After the cement was ready a small amount was placed on to the back side of the tibial component making sure to not get any cement on the sleeve. Similarly, cement was placed onto the backside of the femoral component throughout. Starting with the tibia, the tibia was fully exposed and the stem was inserted and the sleeve was aligned. Once it appeared to be appropriately oriented, it was impacted into position. The seem to rest completely on the cut tibial surface. Excess cement was removed. This did show that the tibia was sitting up about 1 mm. However, there was a good fit with the sleeve and the stem and so I did not continue impacting at this point. Next, cement was manually impacted onto the cut surface of the distal femur as well as an inserted into the femoral canal. The femoral component was then inserted utilizing the femoral component for rotational control. This was impacted into position. Excess cement was removed. The trial polyethylene was then inserted and the leg was brought out into full extension for the duration of the cement curing process, approximately 18min. During this process attention was turned to the gutters of the knee and for all interfaces for any excess cement. While the cement was hardening, the knee was irrigated with Surgiphor Betadine solution. This was allowed to sit in the knee for 3 minutes and then it was thoroughly irrigated with saline. After the cement had finally cured, approximately 18min, the clamp was removed from the patella and the knee was taken through range of motion. A size 14mm polyethylene component provided the best range of motion and stability with less than 2mm gapping with medial and lateral stress and full extension without significant hyperextension. The patella was tracking with a no-thumbs technique. The trial poly was removed and once again the knee was checked for any loose, excess, or errant cement. The poly component was then inserted into position after cleaning and drying the tibial tray. The capsule was then reapproximated with a No. 1 Vicryl at multiple locations. The capsule was finally closed with a No. 2 Stratafix, barbed suture. The tourniquet was then released and the arthrotomy appeared watertight without significant bleeding. Deep tissues were then reapproximated with 0 Vicryl and 2-0 Vicryl. The skin was closed with a running 3-0 Monocryl in a subcuticular fashion. This was reinforced with skin glue. A Mepilex silver dressing was applied along with a [id number] NAKIA wrap. A CryoCuff was applied. Cassi was transferred to the hospital bed without difficulty an suffering no apparent complication. Cassi has a good prognosis. Physical therapy will start today and without restrictions, weight-bearing as tolerated. Aspirin 81mg BID will be used for DVT prophylaxis. Date of Procedure: 03/10/25
[2025-03-10] MEDS: ceFAZolin 2 GM/50 ML BAG IVPB (12:30)
[2025-03-10] MEDS: TRANEXAMIC ACID/SOD. CHL. 1,000 MG/100 ML BAG 600 MG IVPB (12:35)
[2025-03-10] MEDS: ROPIvacaine 0.2% 200 MG/100 ML BAG (12:49)
[2025-03-10] MEDS: Ketorolac 30 MG/ML VIAL (12:49)
[2025-03-10] MEDS: EPINEPHrine 1 MG/ML AMP pres-free (12:49)
--- NOTE | 2025-03-10 13:06 | W.ANESNERVE ---
Nerve Block Single Injection Procedure Date and Time Date Performed: 03/10/25 Procedure Start: 11:55 Location Where Procedure Performed Procedure Location: Day Surgery Unit Reason Performed: Postoperative Analgesia Requesting Provider: Aldair Almanzar Timeout Performed Timeout Performed: Yes Monitoring Used ECG, Blood Pressure, SpO2 and See EMR for corresponding vital signs Sterility Sterility: Hand Hygiene, Surgical Cap, Surgical Mask, Sterile Gloves and Chlorhexidine Sedation Given During Procedure Sedation Given (Indicate Dose Given): Versed IV Dose:: 2mg x1, 2mgx1, total of 4mg Patient Mental Status Patient Mental Status: Sedate with meaningful communication Nerve Block 1st Nerve Block: Laterality: Right Block Type: Adductor Canal Ultrasound Image Saved?: Yes Needle / Catheter Used: 100mm SonoPlex II Local Anesthetic Bolus (Indicate Dose Given): Lidocaine used for local infiltration of skin, Bupivacaine 0.25% Dose:: 10ml and Exparel Dose:: 10ml Additives (Indicate Dose Given): None Ultrasound: Sterile probe cover and gel used Nerve Stimulator: Supplement to Ultrasound use and No twitch or parasthesia noted < 0.5 mA Paresthesia: None Procedure Tolerated: No Complications and Patient did not tolerate well Procedure Outcome: Successful Procedure Comment: First attempt BRYANT Shin and patient not tolerating needle advancement following sedation provided at patient request, no nerve stimulator twitch noted. Needle redirected and patient continued to voice discomfort with procedure. Decision made to move to a more proximal location, LA readministered,and second dose of 2mg Versed administered. Patient continued to cope poorly. Ana Luisa Saucedo CRNA stepped in, completed block with frequent verbal assurance provided to patient. Performed By: Ana Luisa Saucedo
--- NOTE | 2025-03-10 16:21 | W.ANESPOSTOP ---
Postoperative Evaluation Date, Time and Location Date Performed: 03/10/25 Time Performed: 16:23 Patient Location: PACU Vital Signs Most Recent Imported Vital Signs: Most Recent Vital Signs Temp Pulse Resp BP Pulse Ox 36.7 C 88 13 112/67 96 03/10/25 16:16 03/10/25 16:16 03/10/25 16:16 03/10/25 16:16 03/10/25 16:16 Pain Score Most Recent Pain Score: Most Recent Pain Score Pain Level 7 03/10/25 10:15 Assessment Mental Status: Awake (Alert & Oriented to Patient Baseline) Airway and Respiratory Function: Patent airway with normal (patient baseline) respiratory exam Cardiovascular Function: Hemodynamically Stable Hydration Status: Adequately Hydrated Nausea & Vomiting: No Nausea or Vomiting Pain: Pt. Denies Any Pain Peripheral Nerve Block: Regional nerve block not resolved at time of post operative discharge
[2025-03-10] MEDS: HYDROmorphone 2 MG/ML SYR IVP ×2 (16:39→16:54)
[2025-03-10] MEDS: Lactated Ringers 1,000 ML 1000 ML IV (18:07)
[2025-03-10 18:29] LABS: HCT 34.1 % (36.0-46.0); HGB 11.4 g/dL (11.2-15.7)
[2025-03-10] MEDS: ceFAZolin 1 GM/50 ML BAG IVPB (21:22)
[2025-03-10] MEDS: Aspirin E.C. 81 MG TABEC PO (21:23)
[2025-03-10] MEDS: Acetaminophen 500 MG TAB 1000 MG PO (21:23)
[2025-03-10] MEDS: Ibuprofen 600 MG TAB PO (21:23)
[2025-03-10] MEDS: Tranexamic Acid 650 MG TAB 1300 MG PO (22:06)
[2025-03-11 03:46] VITALS: BP 104/69; PULSE 67; RESP 16; TEMP 36.6; O2SAT 94
[2025-03-11] MEDS: ceFAZolin 1 GM/50 ML BAG IVPB ×2 (04:36→11:02)
[2025-03-11] MEDS: Normal Saline Flush 10 ML SYR IVP ×2 (04:37→08:23)
[2025-03-11 06:46] LABS: HCT 31.7 % (36.0-46.0); HGB 10.8 g/dL (11.2-15.7); MCH 28.3 pg (27.0-33.0); MCHC 34.1 % (32.0-36.0); MCV 83 fL (80-95); MPV 9.0 fL (8.0-11.0); Platelet Count 261 10^3/uL (130-400); RBC 3.81 10^6/uL (3.93-5.22); RDW 12.9 % (11.7-14.6); RDW-SD 39.3 fL; WBC 14.20 10^3/uL (4.4-10.8)
[2025-03-11 07:08] LABS: Anion Gap 8.1 mmol/L (3-11); BUN 16 mg/dL (9-23); CO2 25.9 mmol/L (20.0-31.0); Calcium 8.6 mg/dL (8.3-10.6); Chloride 108 mmol/L (98-107); Glucose 110 mg/dL (74-106); Potassium 4.1 mmol/L (3.5-5.1); Sodium 142 mmol/L (136-145)
[2025-03-11 07:46] VITALS: BP 103/71; PULSE 74; RESP 18; TEMP 36.8; O2SAT 97
--- NOTE | 2025-03-11 07:57 | DSE_ITS ---
Date of service: 03/11/25 Time of Service: 07:20 Discharge Plan Disposition Patient Disposition: Home Condition: Good Discharge Details Reason For Visit: Loosening of Right TKA Admit Date/Time: 03/10/25 09:43 Admit Provider: Aldair Almanzar Attending Provider: Aldair Almanzar Primary Care Provider: Naomie Quinones Hospital Course Hospital Course: Cassi was admitted to the medical/surgical floor following the procedure. The surgery was tolerated well without any notable medical, surgical, or anesthetic complications. Mobilization began postoperatively. She was voiding spontaneously. Vitals were stable. Physical therapy worked with the patient and was cleared for discharge home. No acute medical issues. Labs are stable. Pain was controlled on oral regimen. Home Meds and New Rx's Prescriptions: New aspirin 81 mg tablet,delayed release (DR/EC) 81 mg PO BID 30 Days Qty: 60 0RF acetaminophen 500 mg tablet 1,000 mg PO Q8H PRN Qty: 90 0RF Rx Instructions: Take two tablets up to every 8 hours as needed for pain docusate sodium [Colace] 100 mg capsule 100 mg PO BID Qty: 28 0RF gabapentin 300 mg capsule 300 mg PO QHS Qty: 14 0RF Rx Instructions: Take one tablet at bedtime ibuprofen 600 mg tablet 600 mg PO TID PRN (Reason: pain) Qty: 90 0RF oxycodone 5 mg tablet 2.5 - 5 mg PO Q4H PRNQty: 18 0RF Rx Instructions: Take 0.5-1 tablet up to every 4 hours as needed for severe postoperative pain pantoprazole 40 mg tablet,delayed release (DR/EC) 40 mg PO DAILY Qty: 14 0RF Rx Instructions: Take one tablet once daily Continued multivitamin 1 EACH tablet 1 ea PO DAILY Claritin-D 12 Hour 5-120 mg Tablet Extended Release 12 Hr 1 tab PO Q12H PRN omega 2-fpx-tgc-fish oil [Fish Oil] 1,000 mg (120 mg-180 mg) Capsule 1 cap PO DAILY magnesium 30 mg tablet 30 mg PO DAILY Discontinued acetaminophen 500 mg tablet 500 mg PO Q6H PRN (Reason: pain) Qty: 60 2RF Discharge Instructions Additional Instructions: Total Knee Discharge Instructions Activity: The most important activity is to walk and to work on gentle motion (both flexion and extension). You should try to take short walks a few times a day. It is important that when resting you work on keeping the knee straight. Avoid putting a pillow behind the knee as this will encourage flexion. Work on range of motion exercises as provided by Physical Therapy. - Start outpatient physical therapy within 2 weeks. - You should wear the KARUNA hose on both legs for 2 weeks. You may remove these at night. You may also use any compression sock in place of the KARUNA hose. - Utilize [employer] to review exercises, see videos on exercises and obtain basic information pertaining to your surgery and your recovery. Dressing: Remove the Ángel wrap by 2 days after your surgery and put on the KARUNA stocking given to you from the hospital. Keep the surgical dressing (underneath the ÁNGEL wrap) in place for at least one week. After the first week it may be removed and replaced with light gauze and tape or nothing. The wound and dressing may get wet after 3 days but avoid soaking the dressing or otherwise it will need to be changed. Many people prefer covering the dressing with cling wrap (saran wrap) to minimize it from getting soaked. If it gets wet, just pat dry. If it starts to peel off then it will need to be changed. Medications: - You should take Tylenol and anti-inflammatory Ibuprofen as your primary pain control medications. - You have been prescribed a stronger pain medication Oxycodone for breakthrough pain, take as needed as prescribed. - You have also been prescribed a stomach acid reduction agent Pantoprozole to help reduce stomach acid and reflux. - You have been prescribed Gabapentin to take at night for restlessness and nerve pain. - You will be taking Aspirin 81mg twice a day for DVT prevention unless instructed otherwise. - If you have constipation you should take Colace (which has been prescribed) or Miralax (which is available [id number]). It takes most people 3-4 days to have a bowel movement. Follow-up: 2 weeks If you have any acute concerns or questions, please do not hesitate to contact the office at [phone]. You may contact Dr. Almanzar with any questions after hours through the hospital at [phone] or on his cell phone at [phone]. Stand Alone Forms: Portal Information Referrals: Aldair Almanzar MD [ [facility] STAFF PHYSICIAN, Orthopaedic Surgical] Activity:: Activity as Tolerated Equipment/Supplies:: Walker Diet:: As Tolerated Discharge Orders Discharge Orders: Discharge Order (Routine); Ordered 03/11/25 Ordered By: Aldair Almanzar DS: Summary Time Spent with Patient providing and/or coordinating discharge services: Less than 30 minutes Status at Discharge Functional status at discharge: uses cane/walker Overall status at discharge: patient is progressing back to baseline Mental Status: mental status grossly normal Speech and Movement: speech and movement normal Mood: congruent mood Affect: normal affect Exam Narrative Exam Narrative: Sitting up on the edge of the bed. No acute distress. Alert and orient x 3. Right lower extremity dressings clean dry and intact. She is able to actively extend the knee to nearly full flexion and flex to 90 degrees. Intact ankle dorsiflexion and plantarflexion. Psych Mental Status: mental status grossly normal Speech and Movement: speech and movement normal Mood: congruent mood Affect: normal affect DS: Data Vitals/I&O Vitals and I&O: Vital Signs Temperature 96.8 F L 03/10/25 10:15 Pulse 69 03/10/25 10:15 Pulse Rhythm Regular 03/10/25 10:15 Respiratory Rate 16 03/10/25 10:15 Respiratory Depth Normal 03/10/25 10:15 Blood Pressure 139/82 03/10/25 10:15 Pulse Oximetry 98 03/10/25 10:15 Oxygen Delivery Method Room Air 03/10/25 10:15 Oxygen Flow Rate 0 03/10/25 10:15 Pain Level 7 03/10/25 10:15 Intake & Output 03/09/25 03/09/25 03/10/25 11:59 23:59 11:59 Weight 163 lb 0.016 oz 160 lb 14.999 oz PFSH All Active Problems Arthritis of left knee (Acute) 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 Almanzar Colon cancer screening (Acute) Periorbital cellulitis of left eye (Acute) Seasonal allergies (Acute) Medical History FHx: lung cancer mother Aneurysm Mother Surgical History History of partial hysterectomy 2009 - [facility] [place] Hx of LASIK H/O: hysterectomy Family History Other Aneurysm FHx: lung cancer Social History Smoking/Tobacco Use Status: Never Smoking risk assessment performed?: Yes Alcohol Intake: current Alcohol Intake frequency: holidays/special occasions only Drug use: Never Substance use type: does not use Housing: house Do you feel safe at home: Yes Do you feel safe in your relationship?: Yes Time Spent with Patient Time Spent with Patient: <45 minutes Time was spent: preparing to see the patient(eg.review tests), obtaining and/or reviewing separately otained hiistory, indepentently interpreting results and counseling the patient
--- NOTE | 2025-03-11 08:09 | PDOC.CMDIS ---
Date of service: 03/11/25 Time of Service: 14:04 LACE Index Scoring Tool Questions: Length of Stay (in days): 1 Was the patient admitted via the E.D.?: No E.D. Visits: 0 Answers: Total Score: 1 Risk of Readmission: Low Risk Care Management Discharge Plan Reason for Hospitalization: Loosening of Right TKA Discharge Plan: Cassi was discharged home with no new services indicated, prior to CM meeting with her. It is recommended she follow up with her her community providers, surgical team, and discharge plan of care. She will transport via private vehicle. Patient/Family Education Needs: Review of discharge instructions, activity, limitations, and plan of care. Discuss ask me three.
[2025-03-11] MEDS: Ibuprofen 600 MG TAB PO (08:21)
[2025-03-11] MEDS: Magnesium Oxide 400 MG TAB PO (08:22)
[2025-03-11] MEDS: Pantoprazole 40 MG TABCR PO (08:22)
[2025-03-11] MEDS: Aspirin E.C. 81 MG TABEC PO (08:22)
[2025-03-11] MEDS: Acetaminophen 500 MG TAB 1000 MG PO (08:22)
--- NOTE | 2025-03-11 08:39 | IN_ITS ---
PT Notes Visit Reasons: Loosening of Right TKA Physical Therapy Day Surgery Initial Evaluation Date: 03/11/2025 Referring Doctor: Danyelle Guzmán [employer]ING[employer]ER PT Orders: PT CONSULT: Day Surgery Eval Precautions: WBAT for R LE. Patient Profile/Admitting Diagnosis: 64-year-old female who had revision on her r knee for looseness in lateral tibia and far medial aspect of tibia. 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 Delacruz cancer screening (Acute) Periorbital cellulitis of left eye (Acute) Seasonal allergies (Acute) Medical History (Updated 01/18/25 @ 08:47 by Aldair Almanzar MD) FHx: lung cancer motherAneurysm Mother Surgical [facility] Social History/Home Situation: Pt lives in a single-family home [address] no rail. Pt has a couple of steps between rooms in the home with no railing . Equipment Owned/DME: crutches, FWW. Subjective: Pt reported feeling well, a little tired because she didn’t sleep well last night. PT asked to take pt blood pressure because it was a little low, pt consented and informed PT that her blood pressure is usually low (110/70). Pt reported using a FWW for only a week and that is why she brought her crutches as she felt they were more useful. Objective: General Observation: Pt sitting in recliner with cryocuff on right knee. As pt ambulated with crutches PT notices she was leaning forward to much, and during the stairs pt had difficulties with going up the steps, this resulted in PT raising the crutches height. Mental Status: alert and oriented x4. Informed Consent/Education: Patient instructed in purpose of PT consult. Packet containing TKA exercise protocol has been given to patient. Education and training on initial set of exercises that can be done at home have been completed with patient Pain: 3/10 in right quad Vitals: seated 101/70 standing 103/76 ROM: Right Upper Extremity: WFL Left Upper Extremity: WFL Right Lower Extremity: WFL, Knee flex in seated 95, Knee extension in seated - 10. Left Lower Extremity: WFL Strength: Right Upper Extremity: 5/5 Left Upper Extremity: 5/5 Right Lower Extremity: 4-/5 except Quad set : strong no lag with SLR Left Lower Extremity: 5/5 Sensation: intact Bed Mobility/Transfers: Supine to sit not assessed pt was out of bed and reported no difficulty Sit to stand independent Stand to sit independent Bed to chair supervision with crutches Gait: Ambulation: Pt able to ambulate 175 feet with crutches in both hands supervision. Pt needed cueing to bring hips through and after adjusting the crutches to be taller, to place the ends of the crutches a little wider. Step to pattern deb , reduced right knee flexion during swing phase early heel off on right Stairs: Pt able to ambulate two six-inch steps and three four-inch steps cues for sequences First trial: CGA with both railings Second trial: CGA with crutches in both hands Third trial: After adjusting the crutches to be taller, CGA with crutches in both hands Therapeutic Exercise [id number]: right LE only Ankle pumps:1x5 LAQ: 1x5 Heel slides: 1x5 Straight leg raise: 1x5 Quad contraction: 1x5 Glute contraction: 1x5 Balance: Static Sitting: Normal Dynamic Sitting: Normal Static Standing: good Dynamic Standing: good with 1 UE support Special Tests: Mobility Limitations Standardized Measure [facility] AM-PAC 6 clicks Basic Mobility Inpatient Short Form: Raw Score: 23 CMS Score: 11.2% Assessment: Pt able to ambulate 175 feet with crutches and supervision, and perform stairs with crutches and CGA. Pt needed PT to adjust the height of the crutches to promote proper body mechanics and facilitate proper ambulation with crutches. Pt needed mild cueing for ambulation with crutches on level surfaces and during ambulation of stairs. Pt would benefit from skilled PT post follow up appointment with surgeon to help address quad strength dynamic balance, and knee ROM. Patient presents with clinical signs and symptoms consistent with current/admitting diagnoses that have resulted to mobility limitations, gait instability, generalized weakness, and impairment of motor control as demonstrated by the following impairment level findings: 1. Decreased strength to right knee major muscle groups 2. Impaired standing balance 3. Limitation of joint range of motion in right knee 4. Decreased activity tolerance 5. right knee pain Impairments are contributing to the following functional limitations: 1. Inability to safely ambulate without assistive device 2. Increase completion time for mobility ADL performance 3. Increased fall risk 4. Difficulty performing stairs safely without assistance Patient is assessed as a Low complexity based on the following: History: 64-year-old female with impairment level findings, functional limitations, and past medical history as indicated above Examination: Demonstrable impairment in strength, balance, and mobility level with underlying impairments and functional limitations as documented above Presentation: Evolving/stable Decision Making: Low Goals: N/A. PT evaluation and 1-2 treatment sessions only for functional mobility training using recommended AD and for HEP instruction. Plan of Care/Treatment Plan: N/A. PT evaluation and 1-2 treatment session only for functional mobility training using recommended AD and for HEP instruction. DISCHARGE RECOMMENDATIONS: Home with HEP until follow up appointment with surgeon. Outpt.PT as scheduled TREATMENT CODE/TIME: 30353,[id number]/8:00-8:30 Thank you for the opportunity to participate in the care of this patient. Written by: Segundo Lopez Supervised by: Brittany Morales, PT [facility]
[2025-03-11 11:23] VITALS: BP 102/59; PULSE 76; RESP 18; TEMP 36.8; O2SAT 98
== END 2025-03-11 11:47 | disposition home or self-care (01) | DRG 468 ==
LOC: PDS 12:30 → MS 17:09
PROVIDERS: Admitting Provider Student in an Organized Health Care Education/Training Program; PCP Nurse Practitioner Family; Visit Provider Student in an Organized Health Care Education/Training Program
PROC: 0SPC0JZ Removal of Synthetic Substitute from Right Knee Joint, Open Approach (ICD-10-PCS; CPT 27487; principal; 2025-03-10 12:30)
DX: T84.82XA Fibrosis due to internal orthopedic prosthetic devices, implants and grafts, initial encounter (principal); T84.032A Mechanical loosening of internal right knee prosthetic joint, initial encounter; G89.18 Other acute postprocedural pain; M25.561 Pain in right knee
CPT/HCPCS: 27487; 36415; 64447; 80048; 85027; 97110; 97161; 73560; 85014; 85018; C1776; J0166; J0665; J0666; J0690; J1100; J1171; J1885; J2003; J2250; J2371; J2405; J2704; J2795; J3475

== ENCOUNTER 2025-03-23 14:36 | Outpatient (CLI) | payer MEDICAID, SELFPAY ==
--- NOTE | 2025-03-23 13:15 | DI.RAD_ITS ---
Exam(s) XR KNEE RT 2V AP,LAT EXAM: XR KNEE RT 2V AP,LAT CLINICAL HISTORY: S/P REVISION R TKA. TECHNIQUE: 2D digital imaging was performed. Three images were obtained. AP and lateral views were obtained. COMPARISON: CR XR KNEE RT 2V AP,LAT from 03/10/2025 FINDINGS: BONES: There are stable post operative changes of a right total knee arthroplasty present. No fracture or dislocation. JOINTS: The orthopedic hardware is in good position. No evidence of hardware loosening. SOFT TISSUE: Normal. IMPRESSION: Stable revised right total knee arthroplasty. DATA REPOSITORY: RADIATION DOSE DELIVERED:
== END 2025-03-23 14:37 | disposition home or self-care (01) ==
LOC: DIORS 14:36
PROVIDERS: PCP Nurse Practitioner Family; Visit Provider Student in an Organized Health Care Education/Training Program
DX: T84.82XA Fibrosis due to internal orthopedic prosthetic devices, implants and grafts, initial encounter (principal)
CPT/HCPCS: 73560